=== PATIENT | female | born 1950 | race Caucasian/White ===

== ENCOUNTER 2017-02-03 15:30 | Observation (INO) | payer OTHER ==
[2017-02-03] MEDS ORDERED: ZOFRAN INJ 4 MG VIAL IVP ONE (15:47)
[2017-02-03] MEDS ORDERED: NS 1000 ML 1,000 ML IV ONE (15:47)
--- NOTE | 2017-02-03 15:47 | DR.NAUSEAF ---
HPI - Time Seen Time seen: 15:45 - Primary Care Physician Primary Care Physician: TIM POPE - HPI Comment HPI Comment: PATIENT STARTED HAVING ABDOMINAL PAIN WITH NAUSEA TODAY. PAIN WORSE THIS AFTERNOON. - Complaints Chief Complaint Doctors Comments: ABDOMINAL PAIN, NAUSEA AND VOMITING TIMES SEVERAL HOURS. Chief Complaint:: PT. C/O N/V AND ABDOMINAL PAIN. PT. STATES "I HAVE SEVERAL CYST ON MY LIVER, I JUST WANT TO MAKE SURE NOTHING HAS HAPPENED SINCE MY STOMACH HURTS." - Reviewed Nurses Notes Reviewed: Yes - Source History Provided: Patient - Mode of Arrival Mode of Arrival: Ambulatory - Timing Onset of Chief Complaint: 02/03/17 - Context Onset: Spontaneous Recent: None : No History of: Abdominal Operation, Diabetes - Quality Quality: Bilious - Associated Signs and Symptoms Abdominal Pain Quality: Sharp Abdominal Pain Location: Epigastric, RUQ Symptoms: Abdominal Pain PMH - PMH Past Medical History: Yes Past Medical History: Anxiety, Depression, Diabetes, GERD, Hypertension, Hypothyroidism Past Medical History Comment: CYSTS ON LIVER Past Surgical History: Yes Surgical History: Appendectomy, , Cholecystectomy, Hysterectomy, Other - Family History History of Family Medical Conditions: Yes Family Medical History: Diabetes Mellitus, [place], Coronary Artery Disease, Hypertension - Social History Does patient currently use any type of tobacco product: No Have you used tobacco products in the last 12 months: No Type of Tobacco Use: None Does any household member use tobacco: No Alcohol Use: Rarely Do you use any recreational Drugs:: No Lives With: Family Lives Where: Home - infectious screening In the last 2 months have you had wt loss of >10#?: NO Have you had fever, night sweats or hemotysis?: No Have you traveled outside the country in the last 6 months?: No Isolation: Standard ROS - Review of Systems Constitutional: No Symptoms Reported, Weakness, Fatigue. negative: Chills, Fever Eyes: No Symptoms Reported, Eye Pain, Discharge ENTM: No Symptoms Reported. negative: Ear Pain, Nose Discharge, Nose Congestion , Throat Pain Respiratoy: No Symptoms Reported. negative: Productive Cough, Non-Productive Cough, Short of Breath, Wheezing, Hemoptysis Cardiovascular: No Symptoms Reported. negative: Chest Pain Gastrointestinal/Abdominal: Abdominal Pain, Nausea, Vomiting. negative: Diarrhea Genitourinary: No Symptoms Reported. negative: Dysuria, Frequency, Hematuria Neurological: Weakness. negative: Headache, Dizziness Musculoskeletal: Muscle Pain Integumentary: Dryness Hematologic/Lymphatic: Easy Bruising Endocrine: No Symptoms Reported All Other Systems: Reviewed and Negative PE - Vital Signs Vitals: Temperature 98.1 F Pulse Rate 100 Respiratory Rate 17 Blood Pressure [Right Arm] 135/63 Blood Pressure 186/83 O2 Sat by Pulse Oximetry 99 - General Limitations: No Limitations General Appearance: Alert - Head Head Exam: Normal Inspection - Eyes Eye exam: Normal Appearance - ENT ENT Exam: Normal External Ear Exam - Neck Neck Exam: Normal Inspection - Chest Chest Inspection: Symmetric Chest Wall Rise - Respiratory Respiratory Exam: Normal Lung Sounds Bilat Respiratory Exam: Bilateral Clear to Auscultation - Cardiovascular Cardiovascular Exam: Regular Rate, Normal Rhythm, Irregular Rhythm - Abdominal Exam Abdominal Exam: Normal Bowel Sounds, Soft, Distention, Tenderness - Rectal Rectal Exam: Deferred - External Exam: Female: Deferred : Speculum Exam (Female): Deferred : Bimanual Exam (female): Deferred - Extremities Extremities Exam: Normal Inspection - Back Back Exam: Normal Inspection - Neurologic Neurological Exam: Alert, Oriented X3, CN II-XII Intact. negative: Motor Sensory Deficit - Psychiatric Psychiatric Exam: Normal Affect, Normal Mood - Skin Skin Exam: Dry MDM - Differential Diagnosis Differential Diagnosis: Considerations may Include:: Bowel Obstruction, Diabetes /DKA, Gastroenteritis, Pancreatitis, Urinary Obstruction, Urinary Tract Infection, Urolithiasis, Other (HEPATIC CYST) Course - Treatment Treatment: SEE ORDES. - Consultation Consultation Comments: DISCUSS PATIENT WITH DR. GARCIA. HE WILL ADMIT PATIENT. - Education/Counseling Education/Counseling: Patient, Education Educated On: Treatment, Diagnosis ROR - Labs Reviewed Laboratory Results Reviewed?: Yes Result Diagrams: 02/04/17 05:10 02/04/17 05:10 Laboratory: WBC 16.1 X10^3/uL (3.6-10.0) H 02/03/17 16:00 RBC 4.85 X10^6/uL (3.5-5.4) 02/03/17 16:00 Hgb 14.1 g/dL (12.0-16.0) 02/03/17 16:00 Hct 42.3 % (36.0-47.0) 02/03/17 16:00 MCV 87.2 fL (80.0-100.0) 02/03/17 16:00 MCH 29.1 pg (27.0-34.0) 02/03/17 16:00 MCHC 33.3 g/dL (33.0-35.0) 02/03/17 16:00 RDW 13.3 % (11.6-16.5) 02/03/17 16:00 Plt Count 254 X10^3/uL (150.0-450.0) 02/03/17 16:00 Plt Count Comment Adequate (ADEQUATE) 02/03/17 16:00 MPV 9.8 fL (7.4-11.0) 02/03/17 16:00 Neut % 91.1 % (42.0-75.0) H 02/03/17 16:00 Lymph % 4.0 % (21.0-51.0) L 02/03/17 16:00 [place] % 3.9 % (0.0-13.0) 02/03/17 16:00 Eos % 0.7 % (0.9-2.9) L 02/03/17 16:00 Baso % 0.3 % (0.2-1.0) 02/03/17 16:00 Neut # 14.7 x10^3/uL (2.2-4.8) H 02/03/17 16:00 Lymph # 0.6 X10^3/uL (1.3-2.9) L 02/03/17 16:00 [place] # 0.6 x10^3/uL (0.3-0.8) 02/03/17 16:00 Eos # 0.1 x10^3/uL (0.0-0.2) 02/03/17 16:00 Baso # 0.0 X10^3/uL (0.0-0.1) 02/03/17 16:00 Absolute Nucleated RBC 0.0 /100WBC 02/03/17 16:00 Total Counted 100 02/03/17 16:00 Neutrophils % (Manual) 90 % (39-76) H 02/03/17 16:00 Band Neutrophils % 5 % (0-10) 02/03/17 16:00 Lymphocytes % (Manual) 2 % (13-43) L 02/03/17 16:00 Monocytes % (Manual) 1 % (4-9) L 02/03/17 16:00 Plt Morphology Comment Normal (NORMAL) 02/03/17 16:00 RBC Morphology Normal (NORMAL) 02/03/17 16:00 Sodium 140 mmol/L (136-145) 02/03/17 16:00 Corrected Sodium 142 mmol/L (136-145) 02/03/17 16:00 Potassium 3.9 mmol/L (3.5-5.1) 02/03/17 16:00 Chloride 102 mmol/L (98-107) 02/03/17 16:00 Carbon Dioxide 25.6 mmol/L (21-32) 02/03/17 16:00 BUN 17 mg/dL (7-18) 02/03/17 16:00 Creatinine 1.03 mg/dL (0.55-1.02) H 02/03/17 16:00 Est GFR (MDRD) Af Amer > 60 (>60) 02/03/17 16:00 Est GFR (MDRD) Non-Af 57 (>60) L 02/03/17 16:00 Glucose 189 mg/dL (65-99) H 02/03/17 16:00 Calcium 9.0 mg/dL (8.5-10.1) 02/03/17 16:00 Corrected Calcium TNP 02/03/17 16:00 Total Bilirubin 0.90 mg/dL (0.2-1.0) 02/03/17 16:00 AST 27 Units/L (15-37) 02/03/17 16:00 ALT 47 Units/L (12-78) 02/03/17 16:00 Alkaline Phosphatase 107 Units/L (46-116) 02/03/17 16:00 Creatine Kinase 68 Units/L (26-192) 02/03/17 16:00 CK-MB (CK-2) < 1.0 ng/mL (0-4.0) 02/03/17 16:00 CK/CKMB % Calc 1.5 % (<4) 02/03/17 16:00 Troponin I < 0.02 ng/mL (0-1.5) 02/03/17 16:00 Total Protein 7.8 g/dL (6.4-8.2) 02/03/17 16:00 Albumin 4.0 g/dL (3.4-5.0) 02/03/17 16:00 Globulin 3.8 g/dL (2.5-4.5) 02/03/17 16:00 Albumin/Globulin Ratio 1.1 Ratio (1.1-2.1) 02/03/17 16:00 Specimen Type Clean catch urine 02/03/17 17:48 Urine Color Dark yellow (YELLOW) 02/03/17 17:48 Urine Appearance Clear (CLEAR) 02/03/17 17:48 Urine pH 6.0 (5.0 - 8.0) 02/03/17 17:48 Ur Specific [place] 1.025 (1.000-1.030) 02/03/17 17:48 Urine Protein 3+ (NEGATIVE) 02/03/17 17:48 Urine Glucose (UA) Negative (NEGATIVE) 02/03/17 17:48 Urine Ketones Negative (NEGATIVE) 02/03/17 17:48 Urine Occult Blood 1+ (NEGATIVE) 02/03/17 17:48 Urine Nitrite Negative (NEGATIVE) 02/03/17 17:48 Urine Bilirubin Negative (NEGATIVE) 02/03/17 17:48 Urine Urobilinogen 1+ (NORMAL) 02/03/17 17:48 Ur Leukocyte Esterase 1+ (NEGATIVE) 02/03/17 17:48 Urine RBC 0-2 /HPF (NEGATIVE) 02/03/17 17:48 Urine WBC 2-3 /HPF (NEGATIVE) 02/03/17 17:48 Ur Squamous Epith Cells Few /HPF (NEGATIVE) 02/03/17 17:48 Amorphous Sediment Trace /HPF (NEGATIVE) 02/03/17 17:48 Urine Bacteria Trace /HPF (NEGATIVE) 02/03/17 17:48 Urine Mucus Moderate /HPF (NEGATIVE) 02/03/17 17:48 Ur Culture Indicated? No/not indicated 02/03/17 17:48 Acetone, Semi-Quant Negative (NEGATIVE) 02/03/17 16:07 - XRAY XRAY Interpreted by: Radiologist XRAY Findings: REPORT DISCUSS WITH PATIENT. - Diagnosis Discharge Problem: Nausea and vomiting in adult patient, Abdominal pain, Hyperglycemia, Dehydration, Gastroenteritis - Discharge Plan Disposition: ADMITTED INPATIENT Condition: Stable - Follow ups/Referrals - Instructions
[2017-02-03] MEDS ORDERED: NS 1000 ML 1,000 ML ONE (15:52)
[2017-02-03] MEDS ORDERED: ZOFRAN INJ 4 MG VIAL ONE (15:52)
[2017-02-03 16:14] LABS: BASOPHILS % (AUTO) 0.3 % (0.2-1.0); EOSINOPHILS # (AUTO) 0.1 x10^3/uL (0.0-0.2); EOSINOPHILS % (AUTO) 0.7 % (0.9-2.9); HEMATOCRIT 42.3 % (36.0-47.0); HEMOGLOBIN 14.1 g/dL (12.0-16.0); LYMPHOCYTES # (AUTO) 0.6 X10^3/uL (1.3-2.9); MEAN CORPUSCULAR HEMOGLOBIN 29.1 pg (27.0-34.0); MEAN CORPUSCULAR HGB CONC 33.3 g/dL (33.0-35.0); MEAN CORPUSCULAR VOLUME 87.2 fL (80.0-100.0); MEAN PLATELET VOLUME 9.8 fL (7.4-11.0); MONOCYTES # (AUTO) 0.6 x10^3/uL (0.3-0.8); MONOCYTES % (AUTO) 3.9 % (0.0-13.0); NEUTROPHILS # (AUTO) 14.7 x10^3/uL (2.2-4.8); NEUTROPHILS % (AUTO) 91.1 % (42.0-75.0); PLATELET COUNT 254 X10^3/uL (150.0-450.0); RED BLOOD COUNT 4.85 X10^6/uL (3.5-5.4); RED CELL DISTRIBUTION WIDTH 13.3 % (11.6-16.5); WHITE BLOOD COUNT 16.1 X10^3/uL (3.6-10.0)
[2017-02-03 16:28] LABS: BAND NEUTROPHILS % 5 % (0-10); PLATELET MORPHOLOGY COMMENT NORMAL (NORMAL)
[2017-02-03 16:30] LABS: BLOOD UREA NITROGEN 17 mg/dL (7-18); CARBON DIOXIDE 25.6 mmol/L (21-32); CHLORIDE 102 mmol/L (98-107); COR NA(FOR HYPERGLY) 142 mmol/L (136-145); CREATININE 1.03 mg/dL (0.55-1.02); GLUCOSE 189 mg/dL (65-99); SODIUM 140 mmol/L (136-145); TROPONIN I < 0.02 ng/mL (0-1.5); eGFR BLACK RACES > 60 (>60); eGFR NON BLACK RACES 57 (>60)
[2017-02-03 16:34] LABS: ALANINE AMINOTRANSFERASE 47 Units/L (12-78); ALKALINE PHOSPHATASE 107 Units/L (46-116); ASPARTATE AMINO TRANSFERASE 27 Units/L (15-37); CKMB % 1.5 % (<4); CREATINE KINASE 68 Units/L (26-192); CREATINE KINASE MB < 1.0 ng/mL (0-4.0); TOTAL PROTEIN 7.8 g/dL (6.4-8.2)
[2017-02-03] MEDS ORDERED: DEMEROL INJ IVP ONE (16:58)
[2017-02-03] MEDS ORDERED: DEMEROL INJ ONE (17:06)
[2017-02-03 17:58] LABS: BILIRUBIN,URINE NEGATIVE (NEGATIVE); BLOOD/HEMOGLOBIN,URINE 1+ (NEGATIVE); GLUCOSE, URINE NEGATIVE (NEGATIVE); KETONES,URINE NEGATIVE (NEGATIVE); LEUKOCYTE ESTERASE ,URINE 1+ (NEGATIVE); NITRITES,URINE NEGATIVE (NEGATIVE); PROTEIN,URINE 3+ (NEGATIVE); UROBILINOGEN,URINE 1+ (NORMAL)
[2017-02-03 18:06] LABS: AMORPHOUS SEDIMENT,UR TRACE /HPF (NEGATIVE); APPEARANCE,URINE CLEAR (CLEAR); BACTERIA,URINE TRACE /HPF (NEGATIVE); COLOR,URINE DARK YELLOW (YELLOW); MUCUS,URINE MODERATE /HPF (NEGATIVE); RBC,URINE 0-2 /HPF (NEGATIVE); SQUAMOUS EPITHELIAL CELL,UR FEW /HPF (NEGATIVE)
[2017-02-03] MEDS ORDERED: NS 100 ML IV 100 ML IV ONE (18:47)
--- NOTE | 2017-02-03 19:23 | CT ---
CT abdomen and pelvis with contrast Indication: Abdominal pain. No bowel movement in several days. History of multiple liver cysts. Comparison: August 06, 2016 CT. March 23, 2011 CT also reviewed. Technique: Helical images through the abdomen and pelvis after IV contrast. Coronal and sagittal ref ormats provided. Findings: Review of bone windows shows no destructive osseous lesion. Facet arthropathy noted. Limited images through lower chest shows no acute abnormality. Abdomen: The adrenal glands are normal. The kidneys are normal without hydroureteronephrosis. Tiny r ight lower pole renal cyst suggested. Vascular plaque noted. The spleen, pancreas, stomach and small bowel appear normal. Contrast enters the distal small bowel without obstruction. The appendix is no rmal. No acute colonic abnormality seen. No large amount of stool seen in the colon suggests constip ation. The entire sigmoid colon is collapsed, with minimal wall thickening seen at the descending co klaudia/sigmoid junction. This is long segment and not focal without large mass identified. See coronal image 31. The liver is massively enlarged with numerous hepatic cysts. These are relatively similar in distrib ution when compared to the prior. The largest caudal cyst measures 12.1 x 9.6 cm on axial image 39, relatively unchanged from the prior October 01, 2015. Cyst abutting arising from the caudate lobe a ppears to have enlarged from the prior, measuring maximally First 10.5 x 9.6 cm on axial image 21, p reviously 8.7 x 8.0 cm on axial image 23. No very ectatic fluid seen. Pelvis: The urinary bladder and rectum are normal. Uterus is absent. No adnexal region lesion seen. Impression: 1. Numerous large cysts throughout the liver, roughly similar to most recent prior. The caudate lobe cystic lesion has enlarged. These and appear benign. 2. Mild wall thickening of the distal descending colon, probably due to collapse. Very mild colitis is not completely excluded. No evidence of constipation. 3. Vascular plaque and other findings as above without new acute abnormality otherwise. Reported By:
[2017-02-03] MEDS: NS 1000 ML 1,000 ML IV SCH (22:09)
[2017-02-03] MEDS ORDERED: TYLENOL 325 MG TAB PO PRN (22:13)
[2017-02-03] MEDS ORDERED: PHENERGAN INJ 25 MG IVP PRN (22:13)
[2017-02-04] MEDS ORDERED: MORPHINE SULFATE INJ 2 MG ONE (00:26)
[2017-02-04] MEDS: MORPHINE SULFATE INJ 2 MG IVP PRN ×2 (00:28→11:14)
[2017-02-04 03:23] VITALS: BMI 31.9
[2017-02-04] MEDS ORDERED: PHENERGAN INJ 25 MG ONE (03:42)
[2017-02-04] MEDS ORDERED: NS 25 ML IV 25 ML IV ONE (03:43)
[2017-02-04 05:38] LABS: ALANINE AMINOTRANSFERASE 37 Units/L (12-78); ALBUMIN 3.1 g/dL (3.4-5.0); ALKALINE PHOSPHATASE 86 Units/L (46-116); AMYLASE 42 Units/L (25-115); ASPARTATE AMINO TRANSFERASE 24 Units/L (15-37); BLOOD UREA NITROGEN 15 mg/dL (7-18); CALCIUM 7.9 mg/dL (8.5-10.1); CHLORIDE 106 mmol/L (98-107); COR CA(FOR HYPOALB) 8.6 mg/dL (8.5-10.1); COR NA(FOR HYPERGLY) 141 mmol/L (136-145); CREATININE 0.98 mg/dL (0.55-1.02); GLUCOSE 160 mg/dL (65-99); LIPASE 158 Units/L (73-393); SODIUM 140 mmol/L (136-145); TOTAL PROTEIN 6.2 g/dL (6.4-8.2); eGFR BLACK RACES > 60 (>60); eGFR NON BLACK RACES > 60 (>60)
[2017-02-04 05:47] LABS: BASOPHILS % (AUTO) 0.1 % (0.2-1.0); EOSINOPHILS # (AUTO) 0.1 x10^3/uL (0.0-0.2); EOSINOPHILS % (AUTO) 0.6 % (0.9-2.9); HEMOGLOBIN 11.7 g/dL (12.0-16.0); LYMPHOCYTES # (AUTO) 0.9 X10^3/uL (1.3-2.9); LYMPHOCYTES % (AUTO) 10.5 % (21.0-51.0); MEAN CORPUSCULAR HEMOGLOBIN 29.6 pg (27.0-34.0); MEAN CORPUSCULAR HGB CONC 33.5 g/dL (33.0-35.0); MEAN CORPUSCULAR VOLUME 88.3 fL (80.0-100.0); MEAN PLATELET VOLUME 9.8 fL (7.4-11.0); MONOCYTES # (AUTO) 0.7 x10^3/uL (0.3-0.8); MONOCYTES % (AUTO) 7.9 % (0.0-13.0); NEUTROPHILS # (AUTO) 7.2 x10^3/uL (2.2-4.8); NEUTROPHILS % (AUTO) 80.9 % (42.0-75.0); PLATELET COUNT 176 X10^3/uL (150.0-450.0); RED BLOOD COUNT 3.97 X10^6/uL (3.5-5.4); RED CELL DISTRIBUTION WIDTH 13.3 % (11.6-16.5); WHITE BLOOD COUNT 8.9 X10^3/uL (3.6-10.0)
[2017-02-04] MEDS ORDERED: NS 1000 ML 1,000 ML ONE (06:03)
[2017-02-04] MEDS: NS 1000 ML 1,000 ML IV SCH ×3 (06:06→23:56)
[2017-02-04] MEDS ORDERED: ALLEGRA PO PRN (09:52)
[2017-02-04] MEDS ORDERED: PATIENT'S HOME MEDICATION RESPIRATORY (Levocetirizine Dihydrochloride [Levocetirizine Dihy PO SCH (10:00)
[2017-02-04] MEDS ORDERED: CHOLECALCIFEROL PO SCH (10:00)
[2017-02-04] MEDS ORDERED: PATIENT'S HOME MEDICATION PO SCH (10:00)
[2017-02-04] MEDS: ASPIRIN EC 81 MG PO SCH (11:12)
[2017-02-04] MEDS: ZESTRIL TAB 40 MG PO SCH (11:13)
[2017-02-04] MEDS: CIPRO IV 400 MG PREMIX* 400 MG/200 ML IV.SOLN. IV SCH ×2 (11:13→20:39)
[2017-02-04] MEDS: FLAGYL IV PREMIX 500 MG BAG 500 MG/100 ML BAG IV SCH ×2 (11:13→17:40)
[2017-02-04] MEDS: SYNTHROID 50 mcg TAB PO SCH (11:13)
[2017-02-04] MEDS: PROTONIX INJ 40 MG VIAL IVP SCH (11:13)
[2017-02-04] MEDS: VITAMIN C PO SCH (11:13)
[2017-02-04] MEDS: PROCARDIA XL PO SCH (11:14)
[2017-02-04] MEDS: PEPCID 20 MG IV PREMIX* 20 MG/50 ML BAG IV PRN (11:14)
[2017-02-04] MEDS: ZOFRAN INJ 4 MG VIAL IVP PRN (11:14)
[2017-02-04] MEDS: NORCO 5/325 MG TAB PO PRN ×3 (12:00→22:32)
[2017-02-04] MEDS: VITAMIN D3 PO SCH (12:26)
--- NOTE | 2017-02-04 13:57 | DR.H&P ---
H&P - History & Physical for Day of: H&P Date: 02/03/17 - Chief Complaint Chief Complaint: abdominal pain, ruq pain, n/v, fever - Allergies Allergies/Adverse Reactions: Allergies Allergy/AdvReac Type Severity Reaction Status Date / Time No Known Drug Allergy Allergy Verified 02/03/17 15:34 - History of Present Illness History of Present Illness: 66 wf admitted from ER after presenting with co abdominal pain and pressure, nausea and vomiting. Pt has PMH of DM, HTN, OA, Neuropathy and liver cysts. Pt has multile large liver cysts, follow by dr Arauz. Pt states " I think one of my livers cysted ruptured" due to increase abd pain and pressure. pt has ct scan in ER revealing colitis and liver cysts. plan to admit for iv atbx therapy, hydration and pain and nausea control - Past Medical History Past Medical History: Anxiety, Depression, Diabetes, GERD, Hypertension, Hypothyroidism - Past Surgical History Surgical History: Appendectomy, , Cholecystectomy, Hysterectomy, Other - Family History Family Medical History: Diabetes Mellitus, [place], Coronary Artery Disease, Hypertension - Social History Does patient currently use any type of tobacco product: No Have you used tobacco products in the last 12 months: No Type of Tobacco Use: None Does any household member use tobacco: No Alcohol Use: Rarely Drug Use: None - Medications Home Medications: Ascorbic Acid [VITAMIN C tab 500 mg *] 500 mg PO DAILY 02/03/17 [History Confirmed 02/03/17] Cholecalciferol [D3 2000] 2,000 unit PO DAILY 02/03/17 [History Confirmed ] Cyanocobalamin [B12] 1,000 mcg PO WEEKLY 02/03/17 [History Confirmed 02/03/17] Fexofenadine HCl [LAMIN 180 MG TAB *] 180 mg PO DAILY PRN 02/03/17 [History Confirmed 02/03/17] Levocetirizine Dihydrochloride [Levocetirizine Dihydrochl] 5 mg PO DAILY [History Confirmed 02/03/17] Misc Home Med [Patient's Home Medication (Non-PO)] 1 ea PO DAILY 02/03/17 [ History Confirmed 02/03/17] Montelukast Sodium [SINGULAIR TAB 10 MG *] 10 mg PO HS 02/03/17 [History Confirmed 02/03/17] - Review of Systems Constitutional: Fever, Sweats, Weakness Eyes: No Symptoms Reported ENT: No Symptoms Reported Respiratory: No Symptoms Reported Cardiovascular: No Symptoms Reported Gastrointestinal: Nausea, Abdominal Pain Musculoskeletal: No Symptoms Reported Skin: No Symptoms Reported Neurological: No Symptoms Reported - Physical Exam Vital Signs: Temperature 98.1 F Pulse Rate [Right Brachial] 62 Respiratory Rate 20 Blood Pressure [Left Arm] 161/74 Blood Pressure [Right Arm] 170/72 O2 Sat by Pulse Oximetry 94 Oriented: Normal Eyes: Normal Ear: Normal Nose: Normal Throat: Normal Respiratory: Clear Throughout Cardiovascular: Normal : Normal Auscultation: Bowel Sounds: Normal Palpation: Liver Enlarged Tenderness: RUQ, RLQ, LUQ Skin: Normal Musculoskeletal: Normal Psychiatric: Anxiety Speech Pattern: Clear, Appropriate - Assessment/Plan (1) Abdominal pain Qualifiers: Abdominal location: A Status: Acute Plan: admit, IV hydration, pain and nausea control. repeat am labs, occult stool and culture. blood sugar control. resume home meds. advance diet as tolerate (2) Nausea vomiting and diarrhea Status: Acute (3) GERD (gastroesophageal reflux disease) Qualifiers: Esophagitis presence: E Status: Acute (4) Liver cyst Status: Acute (5) Gastroenteritis Status: Acute (6) Diabetes Qualifiers: Diabetes mellitus type: type 2 Diabetes mellitus complication status: D Diabetes mellitus complication detail: with nephropathy Diabetic retinopathy severity: D Proliferative retinopathy type: P Diabetes mellitus macular edema: D Diabetes mellitus skilled nursing insulin use: D Laterality: L Chronic kidney disease stage: C Status: Chronic (7) HTN (hypertension) Qualifiers: Hypertension type: essential hypertension Qualified Code(s): I10 - Essential (primary) hypertension Status: Chronic
--- NOTE | 2017-02-04 14:02 | PCM.PROG ---
Progress Note - Progress Note for Day of Date: 02/04/17 - Subjective Subjective: co low grade fever during the night, continued abdominal "swelling" and abdominal pressure. - Past Medical Family Social History Allergies: Allergies No Known Drug Allergy Allergy (Verified 02/03/17 15:34) - Vital Signs and I&O's Vital Signs: Temperature 98.1 F Pulse Rate [Right Brachial] 62 Respiratory Rate 20 Blood Pressure [Left Arm] 161/74 Blood Pressure [Right Arm] 170/72 O2 Sat by Pulse Oximetry 94 Intake and Output: Intake & Output 02/02/17 02/03/17 02/04/17 02/05/17 11:59 11:59 11:59 11:59 Intake Total 1468 Balance 1468 - Physical Exam Oriented: Normal Eyes: Normal Ear: Normal Nose: Normal Throat: Normal Cardiovascular: Normal : Normal Auscultation: Bowel Sounds: Normal Tenderness: RUQ, RLQ, LUQ Skin: Normal Musculoskeletal: Normal Psychiatric: Anxiety Speech Pattern: Clear, Appropriate - Laboratory and Diagnostics Result Diagrams: 02/04/17 05:10 02/04/17 05:10 Labs: Laboratory WBC 8.9 X10^3/uL (3.6-10.0) 02/04/17 05:10 RBC 3.97 X10^6/uL (3.5-5.4) 02/04/17 05:10 Hgb 11.7 g/dL (12.0-16.0) L 02/04/17 05:10 Hct 35.0 % (36.0-47.0) L 02/04/17 05:10 MCV 88.3 fL (80.0-100.0) 02/04/17 05:10 MCH 29.6 pg (27.0-34.0) 02/04/17 05:10 MCHC 33.5 g/dL (33.0-35.0) 02/04/17 05:10 RDW 13.3 % (11.6-16.5) 02/04/17 05:10 Plt Count 176 X10^3/uL (150.0-450.0) 02/04/17 05:10 Plt Count Comment Adequate (ADEQUATE) 02/03/17 16:00 MPV 9.8 fL (7.4-11.0) 02/04/17 05:10 Neut % 80.9 % (42.0-75.0) H 02/04/17 05:10 Lymph % 10.5 % (21.0-51.0) L 02/04/17 05:10 [place] % 7.9 % (0.0-13.0) 02/04/17 05:10 Eos % 0.6 % (0.9-2.9) L 02/04/17 05:10 Baso % 0.1 % (0.2-1.0) L 02/04/17 05:10 Neut # 7.2 x10^3/uL (2.2-4.8) H 02/04/17 05:10 Lymph # 0.9 X10^3/uL (1.3-2.9) L 02/04/17 05:10 [place] # 0.7 x10^3/uL (0.3-0.8) 02/04/17 05:10 Eos # 0.1 x10^3/uL (0.0-0.2) 02/04/17 05:10 Baso # 0.0 X10^3/uL (0.0-0.1) 02/04/17 05:10 Absolute Nucleated RBC 0.0 /100WBC 02/04/17 05:10 Total Counted 100 02/03/17 16:00 Neutrophils % (Manual) 90 % (39-76) H 02/03/17 16:00 Band Neutrophils % 5 % (0-10) 02/03/17 16:00 Lymphocytes % (Manual) 2 % (13-43) L 02/03/17 16:00 Monocytes % (Manual) 1 % (4-9) L 02/03/17 16:00 Plt Morphology Comment Normal (NORMAL) 02/03/17 16:00 RBC Morphology Normal (NORMAL) 02/03/17 16:00 Sodium 140 mmol/L (136-145) 02/04/17 05:10 Corrected Sodium 141 mmol/L (136-145) 02/04/17 05:10 Potassium 3.7 mmol/L (3.5-5.1) 02/04/17 05:10 Chloride 106 mmol/L (98-107) 02/04/17 05:10 Carbon Dioxide 25.0 mmol/L (21-32) 02/04/17 05:10 BUN 15 mg/dL (7-18) 02/04/17 05:10 Creatinine 0.98 mg/dL (0.55-1.02) 02/04/17 05:10 Est GFR (MDRD) Af Amer > 60 (>60) 02/04/17 05:10 Est GFR (MDRD) Non-Af > 60 (>60) 02/04/17 05:10 Glucose 160 mg/dL (65-99) H 02/04/17 05:10 Calcium 7.9 mg/dL (8.5-10.1) L 02/04/17 05:10 Corrected Calcium 8.6 mg/dL (8.5-10.1) 02/04/17 05:10 Total Bilirubin 0.90 mg/dL (0.2-1.0) 02/04/17 05:10 AST 24 Units/L (15-37) 02/04/17 05:10 ALT 37 Units/L (12-78) 02/04/17 05:10 Alkaline Phosphatase 86 Units/L (46-116) 02/04/17 05:10 Creatine Kinase 68 Units/L (26-192) 02/03/17 16:00 CK-MB (CK-2) < 1.0 ng/mL (0-4.0) 02/03/17 16:00 CK/CKMB % Calc 1.5 % (<4) 02/03/17 16:00 Troponin I < 0.02 ng/mL (0-1.5) 02/03/17 16:00 Total Protein 6.2 g/dL (6.4-8.2) L 02/04/17 05:10 Albumin 3.1 g/dL (3.4-5.0) L 02/04/17 05:10 Globulin 3.1 g/dL (2.5-4.5) 02/04/17 05:10 Albumin/Globulin Ratio 1.0 Ratio (1.1-2.1) L 02/04/17 05:10 Amylase 42 Units/L (25-115) 02/04/17 05:10 Lipase 158 Units/L (73-393) 02/04/17 05:10 Specimen Type Clean catch urine 02/03/17 17:48 Urine Color Dark yellow (YELLOW) 02/03/17 17:48 Urine Appearance Clear (CLEAR) 02/03/17 17:48 Urine pH 6.0 (5.0 - 8.0) 02/03/17 17:48 Ur Specific [place] 1.025 (1.000-1.030) 02/03/17 17:48 Urine Protein 3+ (NEGATIVE) 02/03/17 17:48 Urine Glucose (UA) Negative (NEGATIVE) 02/03/17 17:48 Urine Ketones Negative (NEGATIVE) 02/03/17 17:48 Urine Occult Blood 1+ (NEGATIVE) 02/03/17 17:48 Urine Nitrite Negative (NEGATIVE) 02/03/17 17:48 Urine Bilirubin Negative (NEGATIVE) 02/03/17 17:48 Urine Urobilinogen 1+ (NORMAL) 02/03/17 17:48 Ur Leukocyte Esterase 1+ (NEGATIVE) 02/03/17 17:48 Urine RBC 0-2 /HPF (NEGATIVE) 02/03/17 17:48 Urine WBC 2-3 /HPF (NEGATIVE) 02/03/17 17:48 Ur Squamous Epith Cells Few /HPF (NEGATIVE) 02/03/17 17:48 Amorphous Sediment Trace /HPF (NEGATIVE) 02/03/17 17:48 Urine Bacteria Trace /HPF (NEGATIVE) 02/03/17 17:48 Urine Mucus Moderate /HPF (NEGATIVE) 02/03/17 17:48 Ur Culture Indicated? No/not indicated 02/03/17 17:48 Acetone, Semi-Quant Negative (NEGATIVE) 02/03/17 16:07 - Plan (1) Abdominal pain Status: Acute Qualifiers: Abdominal location: A Plan: continue iv atbc therapy, IV hydration, pain and nausea control. repeat am labs, occult stool and culture. blood sugar control. resume home meds. advance diet as tolerate (2) Nausea vomiting and diarrhea Status: Acute (3) GERD (gastroesophageal reflux disease) Status: Acute Qualifiers: Esophagitis presence: E Plan: protonix 40 daily (4) Liver cyst Status: Acute Plan: see ct report, consult Irfan for evaluation. pt has seen Irfan on OP basis for gerd and liver cysts (5) Gastroenteritis Status: Acute (6) Diabetes Status: Chronic Qualifiers: Diabetes mellitus type: type 2 Diabetes mellitus complication status: D Diabetes mellitus complication detail: with nephropathy Diabetic retinopathy severity: D Proliferative retinopathy type: P Diabetes mellitus macular edema: D Diabetes mellitus lead cashier insulin use: D Laterality: L Chronic kidney disease stage: C (7) HTN (hypertension) Status: Chronic Qualifiers: Hypertension type: essential hypertension Qualified Code(s): I10 - Essential (primary) hypertension
[2017-02-04] MEDS: SINGULAIR TAB 10 MG PO SCH (20:39)
[2017-02-04] MEDS: SNACK - Diabetic Appropriate PO SCH (21:50)
[2017-02-05] MEDS: FLAGYL IV PREMIX 500 MG BAG 500 MG/100 ML BAG IV SCH ×3 (05:37→17:08)
[2017-02-05 06:19] LABS: BASOPHILS % (AUTO) 0.3 % (0.2-1.0); EOSINOPHILS # (AUTO) 0.1 x10^3/uL (0.0-0.2); EOSINOPHILS % (AUTO) 1.2 % (0.9-2.9); HEMATOCRIT 37.5 % (36.0-47.0); HEMOGLOBIN 12.5 g/dL (12.0-16.0); LYMPHOCYTES # (AUTO) 1.2 X10^3/uL (1.3-2.9); LYMPHOCYTES % (AUTO) 16.9 % (21.0-51.0); MEAN CORPUSCULAR HEMOGLOBIN 29.4 pg (27.0-34.0); MEAN CORPUSCULAR HGB CONC 33.4 g/dL (33.0-35.0); MEAN CORPUSCULAR VOLUME 87.9 fL (80.0-100.0); MONOCYTES # (AUTO) 0.7 x10^3/uL (0.3-0.8); MONOCYTES % (AUTO) 9.7 % (0.0-13.0); NEUTROPHILS # (AUTO) 5.2 x10^3/uL (2.2-4.8); NEUTROPHILS % (AUTO) 71.9 % (42.0-75.0); PLATELET COUNT 176 X10^3/uL (150.0-450.0); RED BLOOD COUNT 4.27 X10^6/uL (3.5-5.4); RED CELL DISTRIBUTION WIDTH 13.1 % (11.6-16.5); WHITE BLOOD COUNT 7.2 X10^3/uL (3.6-10.0)
[2017-02-05 06:41] LABS: ALANINE AMINOTRANSFERASE 47 Units/L (12-78); ALKALINE PHOSPHATASE 85 Units/L (46-116); ASPARTATE AMINO TRANSFERASE 32 Units/L (15-37); BLOOD UREA NITROGEN 11 mg/dL (7-18); CALCIUM 7.5 mg/dL (8.5-10.1); CARBON DIOXIDE 23.3 mmol/L (21-32); CHLORIDE 110 mmol/L (98-107); COR CA(FOR HYPOALB) 8.3 mg/dL (8.5-10.1); COR NA(FOR HYPERGLY) 145 mmol/L (136-145); CREATININE 0.85 mg/dL (0.55-1.02); GLUCOSE 121 mg/dL (65-99); SODIUM 144 mmol/L (136-145); TOTAL PROTEIN 6.1 g/dL (6.4-8.2); eGFR BLACK RACES > 60 (>60); eGFR NON BLACK RACES > 60 (>60)
[2017-02-05] MEDS: MORPHINE SULFATE INJ 2 MG IVP PRN (07:39)
[2017-02-05] MEDS: NS 1000 ML 1,000 ML IV SCH ×3 (08:00→18:54)
[2017-02-05] MEDS: NORCO 5/325 MG TAB PO PRN ×2 (09:19→13:10)
[2017-02-05] MEDS: VITAMIN C PO SCH (09:20)
[2017-02-05] MEDS: SYNTHROID 50 mcg TAB PO SCH (09:20)
[2017-02-05] MEDS: VITAMIN D3 PO SCH (09:20)
[2017-02-05] MEDS: PROTONIX INJ 40 MG VIAL IVP SCH (09:20)
[2017-02-05] MEDS: ZESTRIL TAB 40 MG PO SCH (09:20)
[2017-02-05] MEDS: ASPIRIN EC 81 MG PO SCH (09:20)
[2017-02-05] MEDS: PROCARDIA XL PO SCH (09:21)
[2017-02-05] MEDS: CIPRO IV 400 MG PREMIX* 400 MG/200 ML IV.SOLN. IV SCH ×2 (09:21→21:00)
[2017-02-05] MEDS: ZOFRAN INJ 4 MG VIAL IVP PRN ×2 (11:52→21:01)
--- NOTE | 2017-02-05 13:48 | PCM.PROG ---
Progress Note - Progress Note for Day of Date: 02/05/17 - Subjective Subjective: continued abdominal "swelling" and abdominal pressure and loose stool. DR WHITE consulting - Past Medical Family Social History Past Med/Fam/Surg Hx: No changes since H&P Allergies: Allergies No Known Drug Allergy Allergy (Verified 02/03/17 15:34) - Review of Systems ROS: No change since H&P - Vital Signs and I&O's Vital Signs: Temperature 98.6 F Pulse Rate [Right Brachial] 77 Respiratory Rate 18 Blood Pressure [Left Arm] 119/58 Blood Pressure [Right Arm] 162/71 O2 Sat by Pulse Oximetry 95 Intake and Output: Intake & Output 02/03/17 02/04/17 02/05/17 02/06/17 11:59 11:59 11:59 11:59 Intake Total 1468 3676 Balance 1468 3676 - Physical Exam Oriented: Normal Eyes: Normal Ear: Normal Nose: Normal Throat: Normal Cardiovascular: Normal : Normal Auscultation: Bowel Sounds: Normal Tenderness: RUQ, RLQ, LUQ Skin: Normal Musculoskeletal: Normal Psychiatric: Anxiety Speech Pattern: Clear, Appropriate - Laboratory and Diagnostics Result Diagrams: 02/05/17 05:30 02/05/17 05:30 Labs: 02/03/17 22:30 Blood Blood Culture - Preliminary 02/03/17 22:25 Blood Blood Culture - Preliminary 02/05/17 05:21 Stool - Final Laboratory WBC 7.2 X10^3/uL (3.6-10.0) 02/05/17 05:30 RBC 4.27 X10^6/uL (3.5-5.4) 02/05/17 05:30 Hgb 12.5 g/dL (12.0-16.0) 02/05/17 05:30 Hct 37.5 % (36.0-47.0) 02/05/17 05:30 MCV 87.9 fL (80.0-100.0) 02/05/17 05:30 MCH 29.4 pg (27.0-34.0) 02/05/17 05:30 MCHC 33.4 g/dL (33.0-35.0) 02/05/17 05:30 RDW 13.1 % (11.6-16.5) 02/05/17 05:30 Plt Count 176 X10^3/uL (150.0-450.0) 02/05/17 05:30 Plt Count Comment Adequate (ADEQUATE) 02/03/17 16:00 MPV 10.0 fL (7.4-11.0) 02/05/17 05:30 Neut % 71.9 % (42.0-75.0) 02/05/17 05:30 Lymph % 16.9 % (21.0-51.0) L 02/05/17 05:30 Branch % 9.7 % (0.0-13.0) 02/05/17 05:30 Eos % 1.2 % (0.9-2.9) 02/05/17 05:30 Baso % 0.3 % (0.2-1.0) 02/05/17 05:30 Neut # 5.2 x10^3/uL (2.2-4.8) H 02/05/17 05:30 Lymph # 1.2 X10^3/uL (1.3-2.9) L 02/05/17 05:30 Branch # 0.7 x10^3/uL (0.3-0.8) 02/05/17 05:30 Eos # 0.1 x10^3/uL (0.0-0.2) 02/05/17 05:30 Baso # 0.0 X10^3/uL (0.0-0.1) 02/05/17 05:30 Absolute Nucleated RBC 0.0 /100WBC 02/05/17 05:30 Total Counted 100 02/03/17 16:00 Neutrophils % (Manual) 90 % (39-76) H 02/03/17 16:00 Band Neutrophils % 5 % (0-10) 02/03/17 16:00 Lymphocytes % (Manual) 2 % (13-43) L 02/03/17 16:00 Monocytes % (Manual) 1 % (4-9) L 02/03/17 16:00 Plt Morphology Comment Normal (NORMAL) 02/03/17 16:00 RBC Morphology Normal (NORMAL) 02/03/17 16:00 Sodium 144 mmol/L (136-145) 02/05/17 05:30 Corrected Sodium 145 mmol/L (136-145) 02/05/17 05:30 Potassium 3.6 mmol/L (3.5-5.1) 02/05/17 05:30 Chloride 110 mmol/L (98-107) H 02/05/17 05:30 Carbon Dioxide 23.3 mmol/L (21-32) 02/05/17 05:30 BUN 11 mg/dL (7-18) 02/05/17 05:30 Creatinine 0.85 mg/dL (0.55-1.02) 02/05/17 05:30 Est GFR (MDRD) Af Amer > 60 (>60) 02/05/17 05:30 Est GFR (MDRD) Non-Af > 60 (>60) 02/05/17 05:30 Glucose 121 mg/dL (65-99) H 02/05/17 05:30 Calcium 7.5 mg/dL (8.5-10.1) L 02/05/17 05:30 Corrected Calcium 8.3 mg/dL (8.5-10.1) L 02/05/17 05:30 Total Bilirubin 0.60 mg/dL (0.2-1.0) 02/05/17 05:30 AST 32 Units/L (15-37) 02/05/17 05:30 ALT 47 Units/L (12-78) 02/05/17 05:30 Alkaline Phosphatase 85 Units/L (46-116) 02/05/17 05:30 Creatine Kinase 68 Units/L (26-192) 02/03/17 16:00 CK-MB (CK-2) < 1.0 ng/mL (0-4.0) 02/03/17 16:00 CK/CKMB % Calc 1.5 % (<4) 02/03/17 16:00 Troponin I < 0.02 ng/mL (0-1.5) 02/03/17 16:00 Total Protein 6.1 g/dL (6.4-8.2) L 02/05/17 05:30 Albumin 3.0 g/dL (3.4-5.0) L 02/05/17 05:30 Globulin 3.1 g/dL (2.5-4.5) 02/05/17 05:30 Albumin/Globulin Ratio 1.0 Ratio (1.1-2.1) L 02/05/17 05:30 Amylase 42 Units/L (25-115) 02/04/17 05:10 Lipase 158 Units/L (73-393) 02/04/17 05:10 Specimen Type Clean catch urine 02/03/17 17:48 Urine Color Dark yellow (YELLOW) 02/03/17 17:48 Urine Appearance Clear (CLEAR) 02/03/17 17:48 Urine pH 6.0 (5.0 - 8.0) 02/03/17 17:48 Ur Specific [place] 1.025 (1.000-1.030) 02/03/17 17:48 Urine Protein 3+ (NEGATIVE) 02/03/17 17:48 Urine Glucose (UA) Negative (NEGATIVE) 02/03/17 17:48 Urine Ketones Negative (NEGATIVE) 02/03/17 17:48 Urine Occult Blood 1+ (NEGATIVE) 02/03/17 17:48 Urine Nitrite Negative (NEGATIVE) 02/03/17 17:48 Urine Bilirubin Negative (NEGATIVE) 02/03/17 17:48 Urine Urobilinogen 1+ (NORMAL) 02/03/17 17:48 Ur Leukocyte Esterase 1+ (NEGATIVE) 02/03/17 17:48 Urine RBC 0-2 /HPF (NEGATIVE) 02/03/17 17:48 Urine WBC 2-3 /HPF (NEGATIVE) 02/03/17 17:48 Ur Squamous Epith Cells Few /HPF (NEGATIVE) 02/03/17 17:48 Amorphous Sediment Trace /HPF (NEGATIVE) 02/03/17 17:48 Urine Bacteria Trace /HPF (NEGATIVE) 02/03/17 17:48 Urine Mucus Moderate /HPF (NEGATIVE) 02/03/17 17:48 Ur Culture Indicated? No/not indicated 02/03/17 17:48 Stool Description 50g liquid yellowish 02/05/17 05:21 Stl Occult Blood (IFOB) Negative (NEGATIVE) 02/05/17 05:21 Acetone, Semi-Quant Negative (NEGATIVE) 02/03/17 16:07 - Plan (1) Abdominal pain Status: Acute Qualifiers: Abdominal location: A Plan: continue iv atbc therapy, IV hydration, pain and nausea control. repeat am labs, occult stool and culture. blood sugar control. resume home meds. advance diet as tolerate (2) Nausea vomiting and diarrhea Status: Inactive (3) GERD (gastroesophageal reflux disease) Status: Chronic Qualifiers: Esophagitis presence: E Plan: protonix 40 daily (4) Liver cyst Status: Acute Plan: see ct report, consulting Irfan for evaluation. pt has seen Irfan on OP basis for gerd and liver cysts (5) Gastroenteritis Status: Acute (6) Diabetes Status: Chronic Qualifiers: Diabetes mellitus type: type 2 Diabetes mellitus complication status: D Diabetes mellitus complication detail: with nephropathy Diabetic retinopathy severity: D Proliferative retinopathy type: P Diabetes mellitus macular edema: D Diabetes mellitus intermediate frame tender insulin use: D Laterality: L Chronic kidney disease stage: C (7) HTN (hypertension) Status: Chronic Qualifiers: Hypertension type: essential hypertension Qualified Code(s): I10 - Essential (primary) hypertension
[2017-02-05] MEDS: SINGULAIR TAB 10 MG PO SCH (21:01)
[2017-02-05] MEDS: SNACK - Diabetic Appropriate PO SCH (21:05)
[2017-02-06] MEDS: FLAGYL IV PREMIX 500 MG BAG 500 MG/100 ML BAG IV SCH ×2 (02:06→11:22)
[2017-02-06] MEDS: NORCO 5/325 MG TAB PO PRN ×2 (02:11→08:29)
[2017-02-06] MEDS: NS 1000 ML 1,000 ML IV SCH ×2 (02:14→11:04)
[2017-02-06] MEDS: ASPIRIN EC 81 MG PO SCH (09:28)
[2017-02-06] MEDS: CIPRO IV 400 MG PREMIX* 400 MG/200 ML IV.SOLN. IV SCH (09:29)
[2017-02-06] MEDS: PROCARDIA XL PO SCH (09:30)
[2017-02-06] MEDS: VITAMIN C PO SCH (09:30)
[2017-02-06] MEDS: SYNTHROID 50 mcg TAB PO SCH (09:30)
[2017-02-06] MEDS: ZESTRIL TAB 40 MG PO SCH (09:30)
[2017-02-06] MEDS: PROTONIX INJ 40 MG VIAL IVP SCH (09:30)
[2017-02-06] MEDS: VITAMIN D3 PO SCH (09:38)
[2017-02-06] MEDS: PEPCID 20 MG IV PREMIX* 20 MG/50 ML BAG IV PRN (11:03)
[2017-02-06 12:53] VITALS: BP 149/65
[2017-02-06] MEDS ORDERED: LEVSIN SYRUP PO SCH (13:00)
== END 2017-02-06 13:13 | disposition home or self-care (01) ==
LOC: ER 15:40 → OBS 22:11
PROVIDERS: ADMIT Internal Medicine; ATTEND Internal Medicine
DX: K52.89 Other specified noninfective gastroenteritis and colitis (principal); R10.84 Generalized abdominal pain; E86.0 Dehydration; R11.2 Nausea with vomiting, unspecified; K21.9 Gastro-esophageal reflux disease without esophagitis; E11.65 Type 2 diabetes mellitus with hyperglycemia; I10 Essential (primary) hypertension; E03.8 Other specified hypothyroidism; K76.89 Other specified diseases of liver; R14.0 Abdominal distension (gaseous); D72.828 Other elevated white blood cell count; Z79.899 Other long term (current) drug therapy
CPT/HCPCS: 36415; 74177; 80053; 81001; 82009; 82150; 82270; 82550; 82553; 83690; 84484; 85025; 87040; 87045; 87427; 87493; 87899; 96365; 96367; 96374; 96375; 99284; A4222; C9113; S0028; S0030; G0378; J0744; J2175; J2270; J2405; J2550

== ENCOUNTER → 2017-03-30 | Outpatient (CLI) | payer OTHER ==
[2017-03-30 15:45] LABS: BILIRUBIN,DIRECT 0.11 mg/dL (0-0.2); TOTAL PROTEIN 7.9 g/dL (6.4-8.2)
== END ==
LOC: LAB 15:06
PROVIDERS: ATTEND Internal Medicine Gastroenterology
DX: K76.0 Fatty (change of) liver, not elsewhere classified (principal)
CPT/HCPCS: 36415; 80076

== ENCOUNTER → 2017-07-02 | Outpatient (CLI) | payer OTHER ==
[2017-07-02 10:28] LABS: BASOPHILS # (AUTO) 0.1 X10^3/uL (0.0-0.1); BASOPHILS % (AUTO) 0.6 % (0.2-1.0); EOSINOPHILS # (AUTO) 0.1 x10^3/uL (0.0-0.2); EOSINOPHILS % (AUTO) 1.4 % (0.9-2.9); HEMATOCRIT 39.3 % (36.0-47.0); HEMOGLOBIN 13.5 g/dL (12.0-16.0); LYMPHOCYTES # (AUTO) 2.1 X10^3/uL (1.3-2.9); LYMPHOCYTES % (AUTO) 23.6 % (21.0-51.0); MEAN CORPUSCULAR HEMOGLOBIN 29.8 pg (27.0-34.0); MEAN CORPUSCULAR HGB CONC 34.2 g/dL (33.0-35.0); MEAN CORPUSCULAR VOLUME 87.3 fL (80.0-100.0); MEAN PLATELET VOLUME 9.9 fL (7.4-11.0); MONOCYTES # (AUTO) 0.6 x10^3/uL (0.3-0.8); MONOCYTES % (AUTO) 6.9 % (0.0-13.0); NEUTROPHILS # (AUTO) 6.1 x10^3/uL (2.2-4.8); NEUTROPHILS % (AUTO) 67.5 % (42.0-75.0); PLATELET COUNT 232 X10^3/uL (150.0-450.0); RED BLOOD COUNT 4.51 X10^6/uL (3.5-5.4); RED CELL DISTRIBUTION WIDTH 13.4 % (11.6-16.5); WHITE BLOOD COUNT 9.1 X10^3/uL (3.6-10.0)
[2017-07-02 10:48] LABS: ALANINE AMINOTRANSFERASE 36 Units/L (12-78); ALBUMIN 3.9 g/dL (3.4-5.0); ALKALINE PHOSPHATASE 110 Units/L (46-116); ASPARTATE AMINO TRANSFERASE 23 Units/L (15-37); BLOOD UREA NITROGEN 20 mg/dL (7-18); CALCIUM 9.9 mg/dL (8.5-10.1); CHLORIDE 105 mmol/L (98-107); CHOLESTEROL 198 mg/dL (0-200); COR NA(FOR HYPERGLY) 142 mmol/L (136-145); CREATININE 1.22 mg/dL (0.55-1.02); FREE T4 (FREE THYROXINE) 1.29 ng/dL (0.76-1.46); HDL CHOLESTEROL 49 mg/dL (40-60); SODIUM 140 mmol/L (136-145); TOTAL PROTEIN 7.5 g/dL (6.4-8.2); TRIGLYCERIDES 148 mg/dL (0-150); TSH (3RD GENERATION) 0.836 uIU/mL (0.358-3.74); eGFR BLACK RACES 57 (>60); eGFR NON BLACK RACES 47 (>60)
== END | disposition home or self-care (01) | DRG 642 ==
LOC: LAB 09:49
PROVIDERS: ATTEND Nurse Practitioner Family
DX: E78.4 Other hyperlipidemia (principal); I12.9 Hypertensive chronic kidney disease with stage 1 through stage 4 chronic kidney disease, or unspecified chronic kidney disease; N18.1 Chronic kidney disease, stage 1; E11.9 Type 2 diabetes mellitus without complications; E05.90 Thyrotoxicosis, unspecified without thyrotoxic crisis or storm
CPT/HCPCS: 36415; 80053; 80061; 84439; 84443; 85025

== ENCOUNTER 2017-10-22 22:16 | Inpatient (IN) | payer OTHER ==
[2017-10-22 23:12] LABS: BILIRUBIN,URINE NEGATIVE (NEGATIVE); BLOOD/HEMOGLOBIN,URINE 3+ (NEGATIVE); GLUCOSE, URINE NEGATIVE (NEGATIVE); KETONES,URINE 1+ (NEGATIVE); LEUKOCYTE ESTERASE ,URINE NEGATIVE (NEGATIVE); NITRITES,URINE NEGATIVE (NEGATIVE); PH,URINE 6.5 (5.0 - 8.0); PROTEIN,URINE 2+ (NEGATIVE); UROBILINOGEN,URINE NORMAL (NORMAL)
[2017-10-22 23:18] LABS: APPEARANCE,URINE HAZY (CLEAR); COLOR,URINE YELLOW (YELLOW)
[2017-10-22] MEDS ORDERED: MORPHINE SULFATE INJ 4 MG ONE (23:51)
[2017-10-22] MEDS ORDERED: MORPHINE SULFATE INJ 10 MG IVP ONE (23:51)
[2017-10-23 00:08] LABS: BASOPHILS # (AUTO) 0.1 X10^3/uL (0.0-0.1); BASOPHILS % (AUTO) 0.3 % (0.2-1.0); HEMOGLOBIN 12.5 g/dL (12.0-16.0); MEAN CORPUSCULAR HEMOGLOBIN 29.6 pg (27.0-34.0); MONOCYTES # (AUTO) 1.8 x10^3/uL (0.3-0.8); RED BLOOD COUNT 4.21 X10^6/uL (3.5-5.4); WHITE BLOOD COUNT 24.3 X10^3/uL (3.6-10.0)
[2017-10-23 00:12] LABS: EOSINOPHILS % (AUTO) 0.1 % (0.9-2.9); HEMATOCRIT 36.5 % (36.0-47.0); LYMPHOCYTES # (AUTO) 2.5 X10^3/uL (1.3-2.9); LYMPHOCYTES % (AUTO) 10.4 % (21.0-51.0); MEAN CORPUSCULAR HGB CONC 34.2 g/dL (33.0-35.0); MEAN CORPUSCULAR VOLUME 86.7 fL (80.0-100.0); MEAN PLATELET VOLUME 9.3 fL (7.4-11.0); MONOCYTES % (AUTO) 7.3 % (0.0-13.0); NEUTROPHILS # (AUTO) 19.9 x10^3/uL (2.2-4.8); NEUTROPHILS % (AUTO) 81.9 % (42.0-75.0); PLATELET COUNT 259 X10^3/uL (150.0-450.0); RED CELL DISTRIBUTION WIDTH 13.1 % (11.6-16.5)
--- NOTE | 2017-10-23 00:12 | DR.GENAD ---
HPI - PCP Primary Care Physician: CHALINO - Complaint/Symptoms Chief Complaint Doctors Comments: Patient reports that she developed cough and congestion later part of last week. She thought that she would be doing better but is not. She called her primary care physician today and an antibiotic was called in for her. She took one dose and states that she is no better.. In getting history patient frequently complained of right inferior rib cag pain. She admits to abdominal cys and frequent pain. Chief Complaint:: PCP CALLED IN Z-PACK TODAY BUT PT STATES SHE IS WORSE TONIGHT ; SOB Self Treatment fo Chief Complaint: MUCINEX DM YESTERDAY - Source History Provided: Patient - Mode of Arrival Mode of Arrival: Wheelchair - Timing Onset of Chief Complaint: 10/16/17 PMH - PMH Past Medical History: Yes Past Medical History: Diabetes, Hypertension Past Medical History Comment: METFORMIN; HX OF COLITIS Past Surgical History: Yes Surgical History: Appendectomy, Hysterectomy - Family History History of Family Medical Conditions: No Family Medical History: Diabetes Mellitus, [place], Coronary Artery Disease, Hypertension - Social History Alcohol Use: None Do you use any recreational Drugs:: No Lives With: Family Lives Where: Home - infectious screening In the last 2 months have you had wt loss of >10#?: NO Have you had fever, night sweats or hemotysis?: No Have you traveled outside the country in the last 6 months?: No Isolation: Standard ROS - Review of Systems Eyes: No Symptoms Reported ENTM: No Symptoms Reported Respiratoy: No Symptoms Reported Cardiovascular: No Symptoms Reported Gastrointestinal/Abdominal: Abdominal Pain, Constipation Genitourinary: No Symptoms Reported Neurological: No Symptoms Reported Musculoskeletal: Back Integumentary: No Symptoms Reported Hematologic/Lymphatic: No Symptoms Reported Endocrine: No Symptoms Reported Psychiatric: No Symptoms Reported All Other Systems: Reviewed and Negative PE - Vital Signs Vitals: Temperature 100.2 F Pulse Rate 96 Respiratory Rate 26 Blood Pressure [Left Arm] 149/65 Blood Pressure [Right Arm] 149/70 Blood Pressure 138/60 O2 Sat by Pulse Oximetry 98 - General Limitations: No Limitations General Appearance: Alert, In No Apparent Distress - Head Head Exam: Normal Inspection, Atraumatic - Eyes Eye exam: Normal Appearance, PERRL, EOMI - ENT ENT Exam: Normal Exam External Ear Exam: Normal External Inspection TM/Canal Exam: Bilateral Normal Nose Exam: Normal Nose Exam Mouth Exam: Normal Inspection Throat Exam: Normal Inspection - Neck Neck Exam: Normal Inspection - Chest Chest Inspection: Normal Inspection - Respiratory Respiratory Exam: Normal Lung Sounds Bilat, Chest Wall Tenderness (Right lower costal margin). negative: Accessory Muscle Use Respiratory Exam: Bilateral Clear to Auscultation, Bilateral Decreased Breath Sounds (RUL) - Cardiovascular Cardiovascular Exam: Regular Rate - Abdominal Exam Abdominal Exam: Distention, Tenderness (Right costal margin and transverse colon ) Abdominal Tenderness: RUQ, Suprapubic - Extremities Extremities Exam: Normal Inspection, Full ROM - Back Back Exam: Normal Inspection, Tenderness (Right upper back) - Neurologic Neurological Exam: Alert, Oriented X3, CN II-XII Intact - Psychiatric Psychiatric Exam: Normal Affect, Anxious - Skin Skin Exam: Warm, Dry, Intact Course - Reevaluation 1st: Unchanged - Consultation Called: 01:40 ROR - Labs Reviewed Result Diagrams: 10/22/17 23:55 10/22/17 23:55 Laboratory: 10/23/17 02:15 Sputum - Expectorated Sputum - Final WBC 24.3 X10^3/uL (3.6-10.0) H 10/22/17 23:55 RBC 4.21 X10^6/uL (3.5-5.4) 10/22/17 23:55 Hgb 12.5 g/dL (12.0-16.0) 10/22/17 23:55 Hct 36.5 % (36.0-47.0) 10/22/17 23:55 MCV 86.7 fL (80.0-100.0) 10/22/17 23:55 MCH 29.6 pg (27.0-34.0) 10/22/17 23:55 MCHC 34.2 g/dL (33.0-35.0) 10/22/17 23:55 RDW 13.1 % (11.6-16.5) 10/22/17 23:55 Plt Count 259 X10^3/uL (150.0-450.0) 10/22/17 23:55 Plt Count Comment Adequate (ADEQUATE) 10/22/17 23:55 MPV 9.3 fL (7.4-11.0) 10/22/17 23:55 Neut % 81.9 % (42.0-75.0) H 10/22/17 23:55 Lymph % 10.4 % (21.0-51.0) L 10/22/17 23:55 [place] % 7.3 % (0.0-13.0) 10/22/17 23:55 Eos % 0.1 % (0.9-2.9) L 10/22/17 23:55 Baso % 0.3 % (0.2-1.0) 10/22/17 23:55 Neut # 19.9 x10^3/uL (2.2-4.8) H 10/22/17 23:55 Lymph # 2.5 X10^3/uL (1.3-2.9) 10/22/17 23:55 [place] # 1.8 x10^3/uL (0.3-0.8) H 10/22/17 23:55 Eos # 0.0 x10^3/uL (0.0-0.2) 10/22/17 23:55 Baso # 0.1 X10^3/uL (0.0-0.1) 10/22/17 23:55 Absolute Nucleated RBC 0.0 /100WBC 10/22/17 23:55 Total Counted 100 10/22/17 23:55 Neutrophils % (Manual) 74 % (39-76) 10/22/17 23:55 Band Neutrophils % 5 % (0-10) 10/22/17 23:55 Lymphocytes % (Manual) 14 % (13-43) 10/22/17 23:55 Monocytes % (Manual) 7 % (4-9) 10/22/17 23:55 Plt Morphology Comment Normal (NORMAL) 10/22/17 23:55 RBC Morphology Normal (NORMAL) 10/22/17 23:55 Sodium 131 mmol/L (136-145) L 10/22/17 23:55 Corrected Sodium 132 mmol/L (136-145) L 10/22/17 23:55 Potassium 3.9 mmol/L (3.5-5.1) 10/22/17 23:55 Chloride 95 mmol/L (98-107) L 10/22/17 23:55 Carbon Dioxide 25.2 mmol/L (21-32) 10/22/17 23:55 BUN 12 mg/dL (7-18) 10/22/17 23:55 Creatinine 1.06 mg/dL (0.55-1.02) H 10/22/17 23:55 Est GFR (MDRD) Af Amer > 60 (>60) 10/22/17 23:55 Est GFR (MDRD) Non-Af 55 (>60) L 10/22/17 23:55 Glucose 151 mg/dL (65-99) H 10/22/17 23:55 Calcium 9.4 mg/dL (8.5-10.1) 10/22/17 23:55 Corrected Calcium TNP 10/22/17 23:55 Total Bilirubin 1.40 mg/dL (0.2-1.0) H 10/22/17 23:55 AST 25 Units/L (15-37) 10/22/17 23:55 ALT 50 Units/L (12-78) 10/22/17 23:55 Alkaline Phosphatase 137 Units/L (46-116) H 10/22/17 23:55 C-Reactive Protein 120.90 mg/L (0-3.0) H 10/22/17 23:55 Total Protein 7.6 g/dL (6.4-8.2) 10/22/17 23:55 Albumin 3.6 g/dL (3.4-5.0) 10/22/17 23:55 Globulin 4.0 g/dL (2.5-4.5) 10/22/17 23:55 Albumin/Globulin Ratio 0.9 Ratio (1.1-2.1) L 10/22/17 23:55 Specimen Type Clean catch urine 10/22/17 22:50 Urine Color Yellow (YELLOW) 10/22/17 22:50 Urine Appearance Hazy (CLEAR) 10/22/17 22:50 Urine pH 6.5 (5.0 - 8.0) 10/22/17 22:50 Ur Specific [place] 1.010 (1.000-1.030) 10/22/17 22:50 Urine Protein 2+ (NEGATIVE) 10/22/17 22:50 Urine Glucose (UA) Negative (NEGATIVE) 10/22/17 22:50 Urine Ketones 1+ (NEGATIVE) 10/22/17 22:50 Urine Occult Blood 3+ (NEGATIVE) 10/22/17 22:50 Urine Nitrite Negative (NEGATIVE) 10/22/17 22:50 Urine Bilirubin Negative (NEGATIVE) 10/22/17 22:50 Urine Urobilinogen Normal (NORMAL) 10/22/17 22:50 Ur Leukocyte Esterase Negative (NEGATIVE) 10/22/17 22:50 Urinalysis Comment QNS 10/22/17 22:50 Influenza Type A (PCR) Negative (NEGATIVE) 10/22/17 22:50 Influenza Type B (PCR) Negative (NEGATIVE) 10/22/17 22:50 Streptococcus Screen Negative (NEGATIVE) 10/22/17 22:50 - XRAY XRAY Interpreted by: Radiologist (CT Abd/Pel: There is dense airspace consolidation of the visualized right upper lobe. The remaining visualized lung bases are clear. No aggressive osseous lesions are identified. Multiple large cyst throughout the left and right hepatic lobes are again noted and grossly unchanged since prior exam (02/03/17). The main portal vein is patent. The gallbladder is surgically absent. The spleen, pancreas and adrenals are unremarkable. Both kidneys are unremarkable aprtt from a stable probable cyst within the inferior right kidney. Moderate stool is present throughout the asending and transverse colon. There is no bowel inflammation or obstruction. The appendix is normal. There is moderate calcification of the abdominal aorta without aneurysm. The urinary bladder is normal. The patient is post hysterectomy. No free air, free fluid or lymphadenopathy is identified. Impression 1.RUL consolidation c/w pneumonia 2.Grossly stable numerous cysts throughout the liver 3. Constipation, 4. Vascular calcification) - Diagnosis Discharge Problem: Hyponatremia Right upper lobe pneumonia Qualifiers: Pneumonia type: due to unspecified organism Qualified Code(s): J18.1 - Lobar pneumonia, unspecified organism Constipation Qualifiers: Constipation type: slow transit constipation Qualified Code(s): K59.01 - Slow transit constipation - Discharge Plan Condition: Stable - Follow ups/Referrals Follow ups/Referrals: AURELIANO ALLRED [Primary Care Provider] - 3 days - Instructions
[2017-10-23 00:17] LABS: ALANINE AMINOTRANSFERASE 50 Units/L (12-78); ALBUMIN 3.6 g/dL (3.4-5.0); ALKALINE PHOSPHATASE 137 Units/L (46-116); ASPARTATE AMINO TRANSFERASE 25 Units/L (15-37); BLOOD UREA NITROGEN 12 mg/dL (7-18); CALCIUM 9.4 mg/dL (8.5-10.1); CARBON DIOXIDE 25.2 mmol/L (21-32); CHLORIDE 95 mmol/L (98-107); COR NA(FOR HYPERGLY) 132 mmol/L (136-145); CREATININE 1.06 mg/dL (0.55-1.02); SODIUM 131 mmol/L (136-145); TOTAL PROTEIN 7.6 g/dL (6.4-8.2); eGFR BLACK RACES > 60 (>60); eGFR NON BLACK RACES 55 (>60)
[2017-10-23 00:23] LABS: BAND NEUTROPHILS % 5 % (0-10); PLATELET MORPHOLOGY COMMENT NORMAL (NORMAL)
[2017-10-23] MEDS ORDERED: NS 100 ML IV 0 ML IV ONE (00:29)
--- NOTE | 2017-10-23 01:15 | CT ---
CT abdomen and pelvis with contrast Indication: Cough, right upper quadrant pain, right back pain Technique: Helical CT images of the abdomen and pelvis were obtained with IV contrast. Reformatted im ages in the coronal and sagittal planes were also generated for review. Comparison: 02/03/2017 Findings: There is dense airspace consolidation of the visualized right upper lobe. The remaining vis ualized lung bases are clear. No aggressive osseous lesions are identified. Multiple large cysts throughout the left and right hepatic lobes are again noted and grossly unchange d since prior exam. The main portal vein is patent. The gallbladder is surgically absent. The spleen, pancreas and adrenals are unremarkable. Both kidneys are unremarkable apart from a stable probable c yst within the inferior right kidney. Moderate stool is present throughout the ascending and transverse colon. There is no bowel inflammati on or obstruction. The appendix is normal. There is moderate calcification of the abdominal aorta wit hout aneurysm. The urinary bladder is normal. The patient is post hysterectomy. No free air, free flu id or lymphadenopathy is identified. Impression: No acute abnormality identified to explain patient's abdominal symptoms. Dense consolidation of the visualized right upper lobe, compatible with pneumonia. Grossly stable numerous cysts throughout the liver. Constipation, vascular calcifications and additional incidental findings, as above. Reported By:
--- NOTE | 2017-10-23 01:37 | RAD ---
Chest, one-view Indication: Cough, right upper quadrant pain, right back pain Comparison: 11/26/2011 Findings: Heart size is normal. There are patchy opacities within the mid right lung field. Remainder of the lungs are clear. No significant pleural effusion or pneumothorax is identified. No acute osse ous abnormality is seen. Impression: Patchy right-sided airspace disease, suspicious for pneumonia. Clinical correlation and f ollow-up to complete resolution recommended. Reported By:
[2017-10-23] MEDS ORDERED: SALINE 3% 15 ML NEB TX ONE (01:42)
[2017-10-23] MEDS ORDERED: SALINE 3% 15 ML NEB TX NEB ONE (02:00)
[2017-10-23] MEDS ORDERED: ROCEPHIN VIAL 1 GM ONE (02:17)
[2017-10-23] MEDS ORDERED: NS 100 ML IV 100 ML IV ONE ×2 (02:17→20:44)
[2017-10-23] MEDS ORDERED: NS 1000 ML 1,000 ML ONE (02:18)
[2017-10-23] MEDS: ROCEPHIN VIAL 1 GM 1 GM in NS 100 ML IV + SPIKE MINIBAG* 100 ML IV SCH ×2 (02:30→11:11)
[2017-10-23] MEDS: NS 1000 ML 1,000 ML IV SCH ×3 (02:30→21:24)
[2017-10-23] MEDS ORDERED: ZOFRAN INJ 4 MG VIAL IVP PRN (02:59)
[2017-10-23] MEDS ORDERED: NS 1/2 1000 ML IV 1,000 ML IV SCH (03:00)
[2017-10-23] MEDS: DUONEB 0.5 MG/3 MG NEB SCH ×5 (05:09→20:29)
[2017-10-23] MEDS: MORPHINE SULFATE INJ 10 MG IVP PRN ×4 (06:05→20:30)
[2017-10-23 07:10] LABS: BASOPHILS % (AUTO) 0.2 % (0.2-1.0); HEMATOCRIT 33.4 % (36.0-47.0); HEMOGLOBIN 11.4 g/dL (12.0-16.0); LYMPHOCYTES # (AUTO) 1.5 X10^3/uL (1.3-2.9); LYMPHOCYTES % (AUTO) 5.9 % (21.0-51.0); MEAN CORPUSCULAR HEMOGLOBIN 29.4 pg (27.0-34.0); MEAN CORPUSCULAR VOLUME 86.4 fL (80.0-100.0); MONOCYTES # (AUTO) 1.9 x10^3/uL (0.3-0.8); MONOCYTES % (AUTO) 7.7 % (0.0-13.0); NEUTROPHILS # (AUTO) 21.3 x10^3/uL (2.2-4.8); NEUTROPHILS % (AUTO) 86.2 % (42.0-75.0); PLATELET COUNT 210 X10^3/uL (150.0-450.0); RED BLOOD COUNT 3.86 X10^6/uL (3.5-5.4); WHITE BLOOD COUNT 24.7 X10^3/uL (3.6-10.0)
[2017-10-23 07:20] LABS: ALANINE AMINOTRANSFERASE 46 Units/L (12-78); ALBUMIN 3.1 g/dL (3.4-5.0); ALKALINE PHOSPHATASE 122 Units/L (46-116); ASPARTATE AMINO TRANSFERASE 24 Units/L (15-37); BLOOD UREA NITROGEN 13 mg/dL (7-18); CALCIUM 8.8 mg/dL (8.5-10.1); CARBON DIOXIDE 22.2 mmol/L (21-32); CHLORIDE 94 mmol/L (98-107); COR CA(FOR HYPOALB) 9.5 mg/dL (8.5-10.1); COR NA(FOR HYPERGLY) 133 mmol/L (136-145); PLATELET MORPHOLOGY COMMENT NORMAL (NORMAL); SODIUM 128 mmol/L (136-145); TOTAL PROTEIN 6.9 g/dL (6.4-8.2); eGFR BLACK RACES > 60 (>60); eGFR NON BLACK RACES 53 (>60)
[2017-10-23] MEDS ORDERED: ALLEGRA PO PRN (08:13)
[2017-10-23] MEDS ORDERED: GLUCOPHAGE ONE (09:46)
[2017-10-23] MEDS: GLUCOPHAGE PO SCH ×3 (09:52→17:00)
[2017-10-23] MEDS: ZESTRIL TAB 40 MG PO SCH (09:52)
[2017-10-23] MEDS: SYNTHROID 50 mcg TAB PO SCH (09:53)
[2017-10-23] MEDS: PROTONIX TAB 40 MG PO SCH (09:53)
[2017-10-23] MEDS: VITAMIN C PO SCH (09:53)
[2017-10-23] MEDS: HYDROCHLOROTHIAZIDE 25 MG TAB PO SCH (09:53)
[2017-10-23] MEDS: CLARITIN PO SCH (09:54)
[2017-10-23] MEDS: ROCEPHIN VIAL 1 GM 1 GM in NS 100 ML IV 100 ML IV SCH (09:54)
[2017-10-23] MEDS: PROCARDIA XL PO SCH (09:54)
[2017-10-23] MEDS: ROBITUSSIN DM PO SCH ×4 (09:54→21:26)
[2017-10-23] MEDS: VIBRAMYCIN 100 MG in NS 100 ML IV + SPIKE MINIBAG* 100 ML IV SCH ×2 (11:09→21:24)
--- NOTE | 2017-10-23 14:38 | DR.H&P ---
H&P - History & Physical for Day of: H&P Date: 10/23/17 - Chief Complaint Chief Complaint: fever, bodyaches, nausea - Allergies Allergies/Adverse Reactions: Allergies Allergy/AdvReac Type Severity Reaction Status Date / Time No Known Drug Allergies Allergy Verified 10/22/17 22:26 - History of Present Illness History of Present Illness: patient is a 67-year-old white female who was in ER admission after presenting with complaints of fever for several days. Patient reports she had a upper respiratory infection started a Z-Jai last Thursday. Patient denies any increased shortness of breath or productive cough however she complains of right upper back pain. Patient states she's also had some nausea and multiple bowel movements but not diarrhea. Patient has a past medical history of high blood pressure and diabetes. Patient had a CT of her abdomen and pelvis in the ER revealing a right lobe pneumonia. Patient admitted for further evaluation of respiratory illness, blood and sputum cultures ordered, IV antibiotics and respiratory therapy. Plan to continue patient's home medication with blood pressure and blood sugar control. - Past Medical History Past Medical History: Diabetes, Hypertension - Past Surgical History Surgical History: Appendectomy, Cholecystectomy, [employer] Surgery, Hysterectomy - Family History Family Medical History: Diabetes Mellitus, Coronary Artery Disease, Hypertension - Social History Does patient currently use any type of tobacco product: No Have you used tobacco products in the last 12 months: No Type of Tobacco Use: None Does any household member use tobacco: No Alcohol Use: Rarely Drug Use: None - Medications Home Medications: Ascorbic Acid [VITAMIN C tab 500 mg *] 1 tab PO DAILY 10/23/17 [History Confirmed 10/23/17] Cholecalciferol (Vitamin D3) [Vitamin D3] 1 cap PO DAILY 10/23/17 [History Confirmed 10/23/17] Cinnamon Bark [Cinnamon] 2 cap PO HS 10/23/17 [History Confirmed 10/23/17] Cyanocobalamin (Vitamin B-12) [Vitamin B-12] 1 cap PO SUWE 10/23/17 [History Confirmed 10/23/17] Fexofenadine HCl [LAMIN 180 MG TAB *] 1 tab PO DAILY PRN 10/23/17 [History Confirmed 10/23/17] Levocetirizine Dihydrochloride [Xyzal] 1 tab PO HS 10/23/17 [History Confirmed 10/23/17] Loratadine 10 mg 24-Hr Tab [LORATADINE 10 MG *] 1 tab PO DAILY 10/23/17 [ History Confirmed 10/23/17] - Review of Systems Constitutional: Fever, Chills, Weakness Eyes: No Symptoms Reported ENT: No Symptoms Reported Respiratory: No Symptoms Reported Cardiovascular: No Symptoms Reported Gastrointestinal: Nausea Genitourinary: No Symptoms Reported Musculoskeletal: Back Pain Skin: No Symptoms Reported Neurological: No Symptoms Reported - Physical Exam Vital Signs: Temperature 98.1 F Pulse Rate [Right Brachial] 77 Pulse Rate [Left Brachial] 80 Pulse Rate 83 Respiratory Rate 18 Blood Pressure [Left Arm] 149/65 Blood Pressure [Right Arm] 137/65 Blood Pressure 138/60 O2 Sat by Pulse Oximetry 91 Oriented: Normal Eyes: Normal Ear: Normal Nose: Normal Throat: Normal Respiratory: RLL Diminished, LLL Diminished Cardiovascular: Normal : Normal Auscultation: Bowel Sounds: Normal Palpation: Normal Tenderness: Normal Skin: Normal Musculoskeletal: Back:Lumbar Psychiatric: Anxiety Affect: Anxious Speech Pattern: Clear, Appropriate - Assessment/Plan (1) Right upper lobe pneumonia Qualifiers: Pneumonia type: due to unspecified organism Qualified Code(s): J18.1 - Lobar pneumonia, unspecified organism Status: Acute Plan: admit, resp therapy, iv abtx. blood and sputum cultures. supplemental o2 , pulmonary toileting. resume home meds, hold metformin, ssi for blood sugar control. repeat am labs and chest xray (2) Constipation Qualifiers: Constipation type: slow transit constipation Qualified Code(s): K59.01 - Slow transit constipation Status: Acute (3) Diabetes Status: Chronic (4) GERD (gastroesophageal reflux disease) Status: Chronic (5) HTN (hypertension) Status: Chronic
[2017-10-23] MEDS ORDERED: CINNAMON BARK PO SCH (21:00)
[2017-10-23] MEDS ORDERED: PATIENT'S HOME MEDICATION (Levocetirizine Dihydrochloride [Xyzal] 1 TAB) PO SCH (21:00)
[2017-10-23] MEDS: ASPIRIN EC 81 MG PO SCH (21:26)
[2017-10-23] MEDS: SINGULAIR TAB 10 MG PO SCH (21:26)
[2017-10-23] MEDS: TUSSIONEX PENNKINETIC SUSP PO PRN (21:26)
[2017-10-24] MEDS: DUONEB 0.5 MG/3 MG NEB SCH ×6 (00:18→21:11)
[2017-10-24 06:17] LABS: BASOPHILS % (AUTO) 0.2 % (0.2-1.0); EOSINOPHILS # (AUTO) 0.1 x10^3/uL (0.0-0.2); EOSINOPHILS % (AUTO) 0.6 % (0.9-2.9); HEMOGLOBIN 10.6 g/dL (12.0-16.0); LYMPHOCYTES # (AUTO) 2.3 X10^3/uL (1.3-2.9); LYMPHOCYTES % (AUTO) 10.9 % (21.0-51.0); MEAN CORPUSCULAR HEMOGLOBIN 29.5 pg (27.0-34.0); MEAN CORPUSCULAR HGB CONC 34.2 g/dL (33.0-35.0); MEAN CORPUSCULAR VOLUME 86.1 fL (80.0-100.0); MEAN PLATELET VOLUME 9.8 fL (7.4-11.0); MONOCYTES # (AUTO) 1.5 x10^3/uL (0.3-0.8); NEUTROPHILS # (AUTO) 17.2 x10^3/uL (2.2-4.8); NEUTROPHILS % (AUTO) 81.3 % (42.0-75.0); PLATELET COUNT 217 X10^3/uL (150.0-450.0); RED CELL DISTRIBUTION WIDTH 13.2 % (11.6-16.5); WHITE BLOOD COUNT 21.2 X10^3/uL (3.6-10.0)
[2017-10-24 06:30] LABS: ALANINE AMINOTRANSFERASE 37 Units/L (12-78); ASPARTATE AMINO TRANSFERASE < 6 Units/L (15-37); eGFR BLACK RACES > 60 (>60); eGFR NON BLACK RACES > 60 (>60)
[2017-10-24 06:58] LABS: BAND NEUTROPHILS % 1 % (0-10); PLATELET MORPHOLOGY COMMENT NORMAL (NORMAL)
[2017-10-24 07:00] LABS: ALKALINE PHOSPHATASE 110 Units/L (46-116); BLOOD UREA NITROGEN 13 mg/dL (7-18); CALCIUM 8.4 mg/dL (8.5-10.1); CARBON DIOXIDE 24.6 mmol/L (21-32); CHLORIDE 98 mmol/L (98-107); COR CA(FOR HYPOALB) 9.2 mg/dL (8.5-10.1); COR NA(FOR HYPERGLY) 135 mmol/L (136-145); CREATININE 0.98 mg/dL (0.55-1.02); SODIUM 133 mmol/L (136-145); TOTAL PROTEIN 6.9 g/dL (6.4-8.2)
[2017-10-24] MEDS ORDERED: POTASSIUM CHL 40 MEQ/NS 0.45% 500 ML IV PRN (07:29)
[2017-10-24] MEDS ORDERED: K-RIDER 10 MEQ/NS 100 ML 10 MEQ/100 ML BAG IV PRN (07:29)
[2017-10-24] MEDS ORDERED: POTASSIUM CHLORIDE LIQ 20 MEQ UDC PO PRN (07:29)
[2017-10-24] MEDS ORDERED: POTASSIUM CHL 60 MEQ/NS 0.45% 500 ML IV PRN (07:29)
--- NOTE | 2017-10-24 07:42 | RAD ---
HISTORY: Pneumonia Study: PA and lateral views of the chest. Comparison: 10/23/2017 Findings: Interval worsening of right upper lobe airspace opacity. Heart is normal in size. Osseous structures demonstrate no acute abnormality. IMPRESSION: 1. Interval worsening of right upper lobe airspace opacity. Reported By:
[2017-10-24] MEDS: ROBITUSSIN DM PO SCH ×4 (08:14→21:14)
[2017-10-24] MEDS: NS 1000 ML 1,000 ML IV SCH ×3 (08:14→22:14)
[2017-10-24] MEDS: ROCEPHIN VIAL 1 GM 1 GM in NS 100 ML IV 100 ML IV SCH (08:14)
[2017-10-24] MEDS: CLARITIN PO SCH (09:00)
[2017-10-24] MEDS: PROCARDIA XL PO SCH (09:00)
[2017-10-24] MEDS: PROTONIX TAB 40 MG PO SCH (09:00)
[2017-10-24] MEDS: HYDROCHLOROTHIAZIDE 25 MG TAB PO SCH (09:00)
[2017-10-24] MEDS: SYNTHROID 50 mcg TAB PO SCH (09:03)
[2017-10-24] MEDS: ZESTRIL TAB 40 MG PO SCH (09:04)
[2017-10-24] MEDS: TUSSIONEX PENNKINETIC SUSP PO PRN ×2 (09:04→22:17)
[2017-10-24] MEDS: VITAMIN D3 PO SCH (09:04)
[2017-10-24] MEDS: K-LYTE EFFERVESCENT PO PRN (09:04)
[2017-10-24] MEDS: VITAMIN C PO SCH (09:04)
[2017-10-24] MEDS: VIBRAMYCIN 100 MG in NS 100 ML IV 100 ML IV SCH ×2 (09:33→21:15)
[2017-10-24 10:37] VITALS: BMI 32.4
[2017-10-24] MEDS: MILK OF MAGNESIA PO PRN (13:45)
[2017-10-24] MEDS: NORCO 5/325 MG TAB PO PRN ×2 (13:45→22:16)
[2017-10-24] MEDS: SINGULAIR TAB 10 MG PO SCH (21:14)
[2017-10-24] MEDS: ASPIRIN EC 81 MG PO SCH (21:30)
[2017-10-24] MEDS: MUCINEX EXPECTORANT PO SCH (22:15)
[2017-10-25] MEDS: DUONEB 0.5 MG/3 MG NEB SCH ×6 (01:00→21:40)
[2017-10-25 06:32] LABS: BASOPHILS % (AUTO) 0.3 % (0.2-1.0); EOSINOPHILS # (AUTO) 0.2 x10^3/uL (0.0-0.2); EOSINOPHILS % (AUTO) 1.3 % (0.9-2.9); HEMATOCRIT 32.7 % (36.0-47.0); LYMPHOCYTES # (AUTO) 1.9 X10^3/uL (1.3-2.9); MEAN CORPUSCULAR HEMOGLOBIN 29.2 pg (27.0-34.0); MEAN CORPUSCULAR HGB CONC 33.8 g/dL (33.0-35.0); MEAN CORPUSCULAR VOLUME 86.4 fL (80.0-100.0); MEAN PLATELET VOLUME 9.7 fL (7.4-11.0); MONOCYTES # (AUTO) 1.6 x10^3/uL (0.3-0.8); MONOCYTES % (AUTO) 8.5 % (0.0-13.0); NEUTROPHILS # (AUTO) 14.9 x10^3/uL (2.2-4.8); NEUTROPHILS % (AUTO) 79.9 % (42.0-75.0); PLATELET COUNT 267 X10^3/uL (150.0-450.0); RED BLOOD COUNT 3.78 X10^6/uL (3.5-5.4); RED CELL DISTRIBUTION WIDTH 13.1 % (11.6-16.5); WHITE BLOOD COUNT 18.6 X10^3/uL (3.6-10.0)
[2017-10-25 06:51] LABS: ALANINE AMINOTRANSFERASE 33 Units/L (12-78); ALKALINE PHOSPHATASE 139 Units/L (46-116); ASPARTATE AMINO TRANSFERASE 20 Units/L (15-37); BLOOD UREA NITROGEN 8 mg/dL (7-18); CALCIUM 9.1 mg/dL (8.5-10.1); CARBON DIOXIDE 26.7 mmol/L (21-32); CHLORIDE 97 mmol/L (98-107); COR CA(FOR HYPOALB) 9.9 mg/dL (8.5-10.1); COR NA(FOR HYPERGLY) 133 mmol/L (136-145); CREATININE 0.94 mg/dL (0.55-1.02); SODIUM 131 mmol/L (136-145); TOTAL PROTEIN 7.2 g/dL (6.4-8.2); eGFR BLACK RACES > 60 (>60); eGFR NON BLACK RACES > 60 (>60)
--- NOTE | 2017-10-25 07:22 | RAD ---
Examination: Chest, PA and lateral views History: Follow-up pneumonia Comparison 10/24/2017 Findings: There is persistent peripheral airspace consolidation in the right mid lung. There is now a n enlarging right pleural effusion. Heart size and left lung remain normal. Impression: Persistent consolidation right lung with increasing right pleural effusion. Reported By:
[2017-10-25] MEDS ORDERED: CYANOCOBALAMIN PO SCH (08:13)
[2017-10-25] MEDS ORDERED: GLUCOPHAGE ONE ×2 (09:13→20:30)
[2017-10-25] MEDS: HYDROCHLOROTHIAZIDE 25 MG TAB PO SCH (09:39)
[2017-10-25] MEDS: GLUCOPHAGE PO SCH ×2 (09:39→22:55)
[2017-10-25] MEDS: CLARITIN PO SCH (09:39)
[2017-10-25] MEDS: VITAMIN C PO SCH (09:40)
[2017-10-25] MEDS: ROCEPHIN VIAL 1 GM 1 GM in NS 100 ML IV 100 ML IV SCH (09:40)
[2017-10-25] MEDS: ZESTRIL TAB 40 MG PO SCH (09:40)
[2017-10-25] MEDS: SYNTHROID 50 mcg TAB PO SCH (09:40)
[2017-10-25] MEDS: PROCARDIA XL PO SCH (09:40)
[2017-10-25] MEDS: VIBRAMYCIN 100 MG in NS 100 ML IV 100 ML IV SCH ×3 (09:40→22:58)
[2017-10-25] MEDS: MUCINEX EXPECTORANT PO SCH ×2 (09:40→21:00)
[2017-10-25] MEDS: PROTONIX TAB 40 MG PO SCH (09:40)
[2017-10-25] MEDS: ROBITUSSIN DM PO SCH ×4 (09:40→21:00)
[2017-10-25] MEDS: TUSSIONEX PENNKINETIC SUSP PO PRN (09:41)
[2017-10-25] MEDS: MILK OF MAGNESIA PO PRN (09:41)
[2017-10-25] MEDS: VITAMIN D3 PO SCH (11:29)
[2017-10-25] MEDS: NS 1000 ML 1,000 ML IV SCH ×2 (14:03→21:00)
[2017-10-25] MEDS: HumuLIN R SUBCUT PRN (16:34)
[2017-10-25] MEDS ORDERED: CHRONULAC PO PRN (18:23)
[2017-10-25] MEDS ORDERED: CHRONULAC PO SCH (19:00)
[2017-10-25] MEDS: SNACK - Diabetic Appropriate PO SCH (21:00)
[2017-10-25] MEDS: NORCO 5/325 MG TAB PO PRN (21:30)
[2017-10-25] MEDS ORDERED: VIBRAMYCIN PO ONE (22:02)
[2017-10-25] MEDS: ASPIRIN EC 81 MG PO SCH (22:55)
[2017-10-25] MEDS: SINGULAIR TAB 10 MG PO SCH (22:57)
[2017-10-26] MEDS: DUONEB 0.5 MG/3 MG NEB SCH ×6 (00:59→21:08)
[2017-10-26 06:20] LABS: BASOPHILS % (AUTO) 0.1 % (0.2-1.0); EOSINOPHILS # (AUTO) 0.1 x10^3/uL (0.0-0.2); EOSINOPHILS % (AUTO) 0.6 % (0.9-2.9); HEMATOCRIT 30.8 % (36.0-47.0); HEMOGLOBIN 10.6 g/dL (12.0-16.0); LYMPHOCYTES # (AUTO) 1.8 X10^3/uL (1.3-2.9); LYMPHOCYTES % (AUTO) 10.7 % (21.0-51.0); MEAN CORPUSCULAR HEMOGLOBIN 29.6 pg (27.0-34.0); MEAN CORPUSCULAR HGB CONC 34.3 g/dL (33.0-35.0); MEAN CORPUSCULAR VOLUME 86.2 fL (80.0-100.0); MEAN PLATELET VOLUME 9.3 fL (7.4-11.0); MONOCYTES # (AUTO) 1.5 x10^3/uL (0.3-0.8); MONOCYTES % (AUTO) 8.9 % (0.0-13.0); NEUTROPHILS # (AUTO) 13.3 x10^3/uL (2.2-4.8); NEUTROPHILS % (AUTO) 79.7 % (42.0-75.0); PLATELET COUNT 320 X10^3/uL (150.0-450.0); RED BLOOD COUNT 3.57 X10^6/uL (3.5-5.4); RED CELL DISTRIBUTION WIDTH 13.1 % (11.6-16.5); WHITE BLOOD COUNT 16.7 X10^3/uL (3.6-10.0)
[2017-10-26 06:25] LABS: ALANINE AMINOTRANSFERASE 46 Units/L (12-78); ALBUMIN 2.8 g/dL (3.4-5.0); ALKALINE PHOSPHATASE 173 Units/L (46-116); ASPARTATE AMINO TRANSFERASE 32 Units/L (15-37); BLOOD UREA NITROGEN 8 mg/dL (7-18); CALCIUM 9.2 mg/dL (8.5-10.1); CARBON DIOXIDE 25.7 mmol/L (21-32); CHLORIDE 95 mmol/L (98-107); COR CA(FOR HYPOALB) 10.2 mg/dL (8.5-10.1); COR NA(FOR HYPERGLY) 132 mmol/L (136-145); CREATININE 0.84 mg/dL (0.55-1.02); SODIUM 131 mmol/L (136-145); TOTAL PROTEIN 7.1 g/dL (6.4-8.2); eGFR BLACK RACES > 60 (>60); eGFR NON BLACK RACES > 60 (>60)
[2017-10-26] MEDS ORDERED: NS 500 ML IV 500 ML IV ONE (09:02)
[2017-10-26] MEDS: PROCARDIA XL PO SCH (09:18)
[2017-10-26] MEDS: ZESTRIL TAB 40 MG PO SCH (09:19)
[2017-10-26] MEDS: MUCINEX EXPECTORANT PO SCH ×2 (09:19→21:59)
[2017-10-26] MEDS: CLARITIN PO SCH (09:19)
[2017-10-26] MEDS: HYDROCHLOROTHIAZIDE 25 MG TAB PO SCH (09:19)
[2017-10-26] MEDS: SYNTHROID 50 mcg TAB PO SCH (09:19)
[2017-10-26] MEDS: PROTONIX TAB 40 MG PO SCH (09:19)
[2017-10-26] MEDS: VITAMIN D3 PO SCH (09:19)
[2017-10-26] MEDS: ROCEPHIN VIAL 1 GM 1 GM in NS 100 ML IV 100 ML IV SCH (09:20)
[2017-10-26] MEDS: ROBITUSSIN DM PO SCH ×4 (09:20→22:00)
[2017-10-26] MEDS: NS 1000 ML 1,000 ML IV SCH ×2 (09:20→21:59)
[2017-10-26] MEDS ORDERED: NS 100 ML IV 100 ML IV ONE ×3 (10:16→21:14)
[2017-10-26] MEDS: VITAMIN C PO SCH (10:32)
[2017-10-26] MEDS: VIBRAMYCIN 100 MG in NS 100 ML IV 100 ML IV SCH ×2 (10:32→14:50)
[2017-10-26] MEDS: ZOSYN VIAL 3.375 GM IV SCH ×3 (10:33→21:59)
--- NOTE | 2017-10-26 11:22 | CT ---
HISTORY: Pneumonia and dyspnea. Study: CT chest with contrast Comparison: CT examination dated 10/23/2017. Technique: Multiple axial images of the chest were obtained from the thoracic inlet to the upper abdo men after the administration of IV contrast. Findings: The thoracic inlet is unremarkable. No thyroid lesions are seen. There is scattered aortic atheroscle rosis without evidence for an aneurysm or acute aortic pathology. No central pulmonary embolism is se en. The heart is normal in size without pericardial effusion. There is an abnormal right paratracheal lymph node on image number 17 of series 4 which measures 17 mm. There is also an abnormal right yesenia r lymph node on image number 23 of series 4 which measures 16 mm. These abnormal lymph nodes may be r eactive in nature. There is diffuse airspace disease seen throughout the RUL as well as scattered wit hin the right lower lobe where there is a small volume right basilar pleural effusion also observed. These right-sided findings have infectious appearance and probably reflect lobar pneumonia. However, follow-up to complete resolution recommended to exclude malignancy, especially in light of the right- sided mediastinal and hilar adenopathy. The left lung is relatively clear. Numerous cysts are seen th roughout the liver, in keeping with polycystic liver disease, unchanged from prior. No other upper ab dominal abnormalities or changes are appreciated. No acute fracture or destructive lytic bony lesion/ process is identified on this exam. 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 IMPRESSION: Abnormal right paratracheal lymph node on image number 17 of series 4 which measures 17 mm. Abnormal right hilar lymph node on image number 23 of series 4 which measures 16 mm. These abnormal lymph node s may be reactive in nature. Diffuse airspace disease seen throughout the RUL as well as scattered within the right lower lobe whe re there is a small volume right basilar pleural effusion also observed. These right-sided findings have infectious appearance and probably reflect lobar pneumonia. However, follow-up to complete resolution recommended to exclude malignancy, especially in light of the right- sided mediastinal and hilar adenopathy. No other acute cardiopulmonary abnormality is seen. Findings of polycystic liver disease. Reported By:
--- NOTE | 2017-10-26 13:47 | PCM.PROG ---
Progress Note - Progress Note for Day of Date: 10/26/17 - Subjective Subjective: The patient is a 67-year-old white female who was admitted on 10/23 with right upper lobe pneumonia. Patient has been receiving IV antibiotics as well as respiratory therapy. Patient's sputum specimen was negative. Patient has continued diffuse rhonchi and expiratory wheezes with diminished lung sounds to her right upper and middle lobes plan to add Smart Vest, Mucomyst, Zosyn 3.375 every 8 hours and repeat sputum specimen we encouraged hydration, pulmonary toileting and ambulation. - Past Medical Family Social History Past Med/Fam/Surg Hx: No changes since H&P Allergies: Allergies No Known Drug Allergies Allergy (Verified 10/22/17 22:26) - Review of Systems ROS: No change since H&P - Vital Signs and I&O's Vital Signs: Temperature 100 F Pulse Rate [Right Brachial] 87 Pulse Rate [Left Brachial] 80 Pulse Rate 94 Respiratory Rate 20 Blood Pressure [Left Arm] 131/63 Blood Pressure [Right Arm] 133/62 Blood Pressure 138/60 O2 Sat by Pulse Oximetry 96 Intake and Output: Intake & Output 10/24/17 10/25/17 10/26/17 10/27/17 11:59 11:59 11:59 11:59 Intake Total 5394 3528 2318 Balance 5394 3528 2318 - Physical Exam Oriented: Normal Eyes: Normal Ear: Normal Nose: Normal Throat: Normal Respiratory: Diminished, Wheezes, Rhonchi Cardiovascular: Normal : Normal Auscultation: Bowel Sounds: Decreased Tenderness: Normal Skin: Normal Musculoskeletal: Back:Lumbar Psychiatric: Anxiety Affect: Anxious Speech Pattern: Clear - Laboratory and Diagnostics Result Diagrams: 10/26/17 05:35 10/26/17 05:35 Labs: 10/23/17 01:55 Blood Blood Culture - Preliminary 10/23/17 01:47 Blood Blood Culture - Preliminary 10/23/17 02:15 Sputum - Expectorated Sputum Sputum Culture - Final 10/23/17 02:15 Sputum - Expectorated Sputum - Final 10/22/17 22:50 Throat Throat Culture - Final Laboratory WBC 16.7 X10^3/uL (3.6-10.0) H 10/26/17 05:35 RBC 3.57 X10^6/uL (3.5-5.4) 10/26/17 05:35 Hgb 10.6 g/dL (12.0-16.0) L 10/26/17 05:35 Hct 30.8 % (36.0-47.0) L 10/26/17 05:35 MCV 86.2 fL (80.0-100.0) 10/26/17 05:35 MCH 29.6 pg (27.0-34.0) 10/26/17 05:35 MCHC 34.3 g/dL (33.0-35.0) 10/26/17 05:35 RDW 13.1 % (11.6-16.5) 10/26/17 05:35 Plt Count 320 X10^3/uL (150.0-450.0) 10/26/17 05:35 Plt Count Comment Adequate (ADEQUATE) 10/24/17 05:22 MPV 9.3 fL (7.4-11.0) 10/26/17 05:35 Neut % 79.7 % (42.0-75.0) H 10/26/17 05:35 Lymph % 10.7 % (21.0-51.0) L 10/26/17 05:35 Bartholomew % 8.9 % (0.0-13.0) 10/26/17 05:35 Eos % 0.6 % (0.9-2.9) L 10/26/17 05:35 Baso % 0.1 % (0.2-1.0) L 10/26/17 05:35 Neut # 13.3 x10^3/uL (2.2-4.8) H 10/26/17 05:35 Lymph # 1.8 X10^3/uL (1.3-2.9) 10/26/17 05:35 Bartholomew # 1.5 x10^3/uL (0.3-0.8) H 10/26/17 05:35 Eos # 0.1 x10^3/uL (0.0-0.2) 10/26/17 05:35 Baso # 0.0 X10^3/uL (0.0-0.1) 10/26/17 05:35 Absolute Nucleated RBC 0.0 /100WBC 10/26/17 05:35 Total Counted 100 10/24/17 05:22 Neutrophils % (Manual) 73 % (39-76) 10/24/17 05:22 Band Neutrophils % 1 % (0-10) 10/24/17 05:22 Lymphocytes % (Manual) 25 % (13-43) 10/24/17 05:22 Monocytes % (Manual) 1 % (4-9) L 10/24/17 05:22 Plt Morphology Comment Normal (NORMAL) 10/24/17 05:22 RBC Morphology Normal (NORMAL) 10/24/17 05:22 Sodium 131 mmol/L (136-145) L 10/26/17 05:35 Corrected Sodium 132 mmol/L (136-145) L 10/26/17 05:35 Potassium 3.8 mmol/L (3.5-5.1) 10/26/17 05:35 Chloride 95 mmol/L (98-107) L 10/26/17 05:35 Carbon Dioxide 25.7 mmol/L (21-32) 10/26/17 05:35 BUN 8 mg/dL (7-18) 10/26/17 05:35 Creatinine 0.84 mg/dL (0.55-1.02) 10/26/17 05:35 Est GFR (MDRD) Af Amer > 60 (>60) 10/26/17 05:35 Est GFR (MDRD) Non-Af > 60 (>60) 10/26/17 05:35 Glucose 141 mg/dL (65-99) H 10/26/17 05:35 POC Glucose (mg/dL) 190 mg/dL (65-99) H 10/26/17 11:18 Lactic Acid 1.1 mmol/L (0.4-2.0) 10/23/17 01:55 Calcium 9.2 mg/dL (8.5-10.1) 10/26/17 05:35 Corrected Calcium 10.2 mg/dL (8.5-10.1) H 10/26/17 05:35 Total Bilirubin 0.90 mg/dL (0.2-1.0) 10/26/17 05:35 AST 32 Units/L (15-37) 10/26/17 05:35 ALT 46 Units/L (12-78) 10/26/17 05:35 Alkaline Phosphatase 173 Units/L (46-116) H 10/26/17 05:35 C-Reactive Protein 120.90 mg/L (0-3.0) H 10/22/17 23:55 Total Protein 7.1 g/dL (6.4-8.2) 10/26/17 05:35 Albumin 2.8 g/dL (3.4-5.0) L 10/26/17 05:35 Globulin 4.3 g/dL (2.5-4.5) 10/26/17 05:35 Albumin/Globulin Ratio 0.7 Ratio (1.1-2.1) L 10/26/17 05:35 Specimen Type Clean catch urine 10/22/17 22:50 Urine Color Yellow (YELLOW) 10/22/17 22:50 Urine Appearance Hazy (CLEAR) 10/22/17 22:50 Urine pH 6.5 (5.0 - 8.0) 10/22/17 22:50 Ur Specific [place] 1.010 (1.000-1.030) 10/22/17 22:50 Urine Protein 2+ (NEGATIVE) 10/22/17 22:50 Urine Glucose (UA) Negative (NEGATIVE) 10/22/17 22:50 Urine Ketones 1+ (NEGATIVE) 10/22/17 22:50 Urine Occult Blood 3+ (NEGATIVE) 10/22/17 22:50 Urine Nitrite Negative (NEGATIVE) 10/22/17 22:50 Urine Bilirubin Negative (NEGATIVE) 10/22/17 22:50 Urine Urobilinogen Normal (NORMAL) 10/22/17 22:50 Ur Leukocyte Esterase Negative (NEGATIVE) 10/22/17 22:50 Urinalysis Comment QNS 10/22/17 22:50 Influenza Type A (PCR) Negative (NEGATIVE) 10/22/17 22:50 Influenza Type B (PCR) Negative (NEGATIVE) 10/22/17 22:50 Streptococcus Screen Negative (NEGATIVE) 10/22/17 22:50 - Plan (1) Right upper lobe pneumonia Status: Acute Qualifiers: Pneumonia type: due to unspecified organism Qualified Code(s): J18.1 - Lobar pneumonia, unspecified organism Plan: resp therapy, iv abtx. blood and sputum cultures collected on admission, repeat sputum. supplemental o2, pulmonary toileting. resume home meds, hold metformin, ssi for blood sugar control. repeat am labs and chest xray (2) Constipation Status: Acute Qualifiers: Constipation type: slow transit constipation Qualified Code(s): K59.01 - Slow transit constipation (3) Diabetes Status: Chronic Plan: ssi (4) GERD (gastroesophageal reflux disease) Status: Chronic (5) HTN (hypertension) Status: Chronic Plan: resume home meds, monitor BP
[2017-10-26] MEDS: CHRONULAC PO SCH ×2 (14:08→21:59)
[2017-10-26] MEDS: MERREM VIAL 500 MG in NS 100 ML IV 100 ML IV SCH ×2 (15:40→21:53)
[2017-10-26] MEDS: SINGULAIR TAB 10 MG PO SCH (21:59)
[2017-10-26] MEDS: ASPIRIN EC 81 MG PO SCH (22:00)
[2017-10-26] MEDS: TUSSIONEX PENNKINETIC SUSP PO PRN (22:00)
[2017-10-26] MEDS: SNACK - Diabetic Appropriate PO SCH (22:01)
[2017-10-26] MEDS: NORCO 5/325 MG TAB PO PRN (22:01)
[2017-10-27] MEDS: DUONEB 0.5 MG/3 MG NEB SCH ×6 (01:38→20:51)
[2017-10-27] MEDS ORDERED: NS 100 ML IV 100 ML IV ONE (04:53)
[2017-10-27] MEDS: MERREM VIAL 500 MG in NS 100 ML IV 100 ML IV SCH (05:00)
[2017-10-27] MEDS: CHRONULAC PO SCH ×4 (06:10→21:12)
[2017-10-27] MEDS: ZOSYN VIAL 3.375 GM IV SCH (06:10)
[2017-10-27 06:17] LABS: BASOPHILS # (AUTO) 0.1 X10^3/uL (0.0-0.1); BASOPHILS % (AUTO) 0.3 % (0.2-1.0); EOSINOPHILS # (AUTO) 0.1 x10^3/uL (0.0-0.2); EOSINOPHILS % (AUTO) 0.7 % (0.9-2.9); HEMATOCRIT 29.7 % (36.0-47.0); HEMOGLOBIN 10.2 g/dL (12.0-16.0); LYMPHOCYTES # (AUTO) 1.8 X10^3/uL (1.3-2.9); LYMPHOCYTES % (AUTO) 9.6 % (21.0-51.0); MEAN CORPUSCULAR HEMOGLOBIN 29.5 pg (27.0-34.0); MEAN CORPUSCULAR HGB CONC 34.3 g/dL (33.0-35.0); MEAN CORPUSCULAR VOLUME 86.1 fL (80.0-100.0); MEAN PLATELET VOLUME 8.9 fL (7.4-11.0); MONOCYTES # (AUTO) 1.7 x10^3/uL (0.3-0.8); MONOCYTES % (AUTO) 8.7 % (0.0-13.0); NEUTROPHILS # (AUTO) 15.4 x10^3/uL (2.2-4.8); NEUTROPHILS % (AUTO) 80.7 % (42.0-75.0); PLATELET COUNT 340 X10^3/uL (150.0-450.0); RED BLOOD COUNT 3.45 X10^6/uL (3.5-5.4); RED CELL DISTRIBUTION WIDTH 13.3 % (11.6-16.5)
[2017-10-27 06:38] LABS: ALANINE AMINOTRANSFERASE 57 Units/L (12-78); ALBUMIN 2.4 g/dL (3.4-5.0); ALKALINE PHOSPHATASE 240 Units/L (46-116); ASPARTATE AMINO TRANSFERASE 33 Units/L (15-37); BLOOD UREA NITROGEN 8 mg/dL (7-18); CARBON DIOXIDE 27.3 mmol/L (21-32); CHLORIDE 100 mmol/L (98-107); COR CA(FOR HYPOALB) 10.3 mg/dL (8.5-10.1); COR NA(FOR HYPERGLY) 137 mmol/L (136-145); CREATININE 0.84 mg/dL (0.55-1.02); SODIUM 135 mmol/L (136-145); TOTAL PROTEIN 6.7 g/dL (6.4-8.2); eGFR BLACK RACES > 60 (>60); eGFR NON BLACK RACES > 60 (>60)
[2017-10-27] MEDS: HYDROCHLOROTHIAZIDE 25 MG TAB PO SCH (08:04)
[2017-10-27] MEDS: MUCINEX EXPECTORANT PO SCH ×2 (08:04→21:12)
[2017-10-27] MEDS: CLARITIN PO SCH (08:04)
[2017-10-27] MEDS: VITAMIN D3 PO SCH (08:05)
[2017-10-27] MEDS: ROBITUSSIN DM PO SCH ×4 (08:05→21:20)
[2017-10-27] MEDS: VITAMIN C PO SCH (08:05)
[2017-10-27] MEDS: PROTONIX TAB 40 MG PO SCH (08:05)
[2017-10-27] MEDS: SYNTHROID 50 mcg TAB PO SCH (08:05)
[2017-10-27] MEDS: ZESTRIL TAB 40 MG PO SCH (08:05)
[2017-10-27] MEDS: PROCARDIA XL PO SCH (08:05)
[2017-10-27] MEDS: TUSSIONEX PENNKINETIC SUSP PO PRN ×2 (08:06→21:22)
[2017-10-27] MEDS: NORCO 5/325 MG TAB PO PRN ×2 (08:06→21:21)
[2017-10-27] MEDS: PULMICORT NEB TX 0.5 MG NEB SCH ×2 (08:52→20:51)
[2017-10-27] MEDS ORDERED: NS 250 ML IV 250 ML IV ONE (09:11)
[2017-10-27] MEDS ORDERED: TORADOL 15 MG VIAL IVP PRN (09:18)
[2017-10-27] MEDS: NS 1000 ML 1,000 ML IV SCH ×2 (09:26→21:12)
[2017-10-27] MEDS ORDERED: MORPHINE SULFATE INJ 4 MG IVP PRN (13:39)
[2017-10-27] MEDS: MERREM VIAL 500 MG in NS 50 ML IV 50 ML IV SCH ×2 (13:42→21:22)
[2017-10-27] MEDS: ZOSYN VIAL 3.375 GM 3.375 GM in NS 50 ML IV 50 ML IV SCH ×2 (14:00→21:20)
--- NOTE | 2017-10-27 14:07 | PCM.PROG ---
Progress Note - Progress Note for Day of Date: 10/27/17 - Subjective Subjective: The patient is a 67-year-old white female who was admitted on 10/23 with right upper lobe pneumonia. Patient has been receiving IV antibiotics as well as respiratory therapy. Patient's sputum specimen was negative. Patient has continued diffuse rhonchi and expiratory wheezes with diminished lung sounds to her right upper and middle lobes. Continue resp therapy, Mucomyst, Zosyn 3.375 every 8 hours and repeat sputum specimen we encouraged hydration, pulmonary toileting and ambulation. - Past Medical Family Social History Past Med/Fam/Surg Hx: No changes since H&P Allergies: Allergies No Known Drug Allergies Allergy (Verified 10/22/17 22:26) - Review of Systems ROS: No change since H&P - Vital Signs and I&O's Vital Signs: Temperature 97.4 F Pulse Rate [Right Brachial] 80 Pulse Rate [Left Brachial] 80 Pulse Rate 91 Respiratory Rate 20 Blood Pressure [Left Arm] 137/66 Blood Pressure [Right Arm] 133/62 Blood Pressure 138/60 O2 Sat by Pulse Oximetry 92 Intake and Output: Intake & Output 10/25/17 10/26/17 10/27/17 10/28/17 11:59 11:59 11:59 11:59 Intake Total 3528 2318 4184 Balance 3528 2318 4184 - Physical Exam Oriented: Normal Eyes: Normal Ear: Normal Nose: Normal Throat: Normal Respiratory: Diminished, Wheezes, Rhonchi Cardiovascular: Normal : Normal Auscultation: Bowel Sounds: Decreased Tenderness: Normal Skin: Normal Musculoskeletal: Back:Lumbar Psychiatric: Anxiety Affect: Anxious Speech Pattern: Clear - Laboratory and Diagnostics Result Diagrams: 10/27/17 05:25 10/27/17 05:25 Labs: 10/23/17 01:55 Blood Blood Culture - Preliminary 10/23/17 01:47 Blood Blood Culture - Preliminary 10/23/17 02:15 Sputum - Expectorated Sputum Sputum Culture - Final 10/23/17 02:15 Sputum - Expectorated Sputum - Final 10/22/17 22:50 Throat Throat Culture - Final Laboratory WBC 19.0 X10^3/uL (3.6-10.0) H 10/27/17 05:25 RBC 3.45 X10^6/uL (3.5-5.4) L 10/27/17 05:25 Hgb 10.2 g/dL (12.0-16.0) L 10/27/17 05:25 Hct 29.7 % (36.0-47.0) L 10/27/17 05:25 MCV 86.1 fL (80.0-100.0) 10/27/17 05:25 MCH 29.5 pg (27.0-34.0) 10/27/17 05:25 MCHC 34.3 g/dL (33.0-35.0) 10/27/17 05:25 RDW 13.3 % (11.6-16.5) 10/27/17 05:25 Plt Count 340 X10^3/uL (150.0-450.0) 10/27/17 05:25 Plt Count Comment Adequate (ADEQUATE) 10/24/17 05:22 MPV 8.9 fL (7.4-11.0) 10/27/17 05:25 Neut % 80.7 % (42.0-75.0) H 10/27/17 05:25 Lymph % 9.6 % (21.0-51.0) L 10/27/17 05:25 [place] % 8.7 % (0.0-13.0) 10/27/17 05:25 Eos % 0.7 % (0.9-2.9) L 10/27/17 05:25 Baso % 0.3 % (0.2-1.0) 10/27/17 05:25 Neut # 15.4 x10^3/uL (2.2-4.8) H 10/27/17 05:25 Lymph # 1.8 X10^3/uL (1.3-2.9) 10/27/17 05:25 [place] # 1.7 x10^3/uL (0.3-0.8) H 10/27/17 05:25 Eos # 0.1 x10^3/uL (0.0-0.2) 10/27/17 05:25 Baso # 0.1 X10^3/uL (0.0-0.1) 10/27/17 05:25 Absolute Nucleated RBC 0.0 /100WBC 10/27/17 05:25 Total Counted 100 10/24/17 05:22 Neutrophils % (Manual) 73 % (39-76) 10/24/17 05:22 Band Neutrophils % 1 % (0-10) 10/24/17 05:22 Lymphocytes % (Manual) 25 % (13-43) 10/24/17 05:22 Monocytes % (Manual) 1 % (4-9) L 10/24/17 05:22 Plt Morphology Comment Normal (NORMAL) 10/24/17 05:22 RBC Morphology Normal (NORMAL) 10/24/17 05:22 Sodium 135 mmol/L (136-145) L 10/27/17 05:25 Corrected Sodium 137 mmol/L (136-145) 10/27/17 05:25 Potassium 3.4 mmol/L (3.5-5.1) L 10/27/17 05:25 Chloride 100 mmol/L (98-107) 10/27/17 05:25 Carbon Dioxide 27.3 mmol/L (21-32) 10/27/17 05:25 BUN 8 mg/dL (7-18) 10/27/17 05:25 Creatinine 0.84 mg/dL (0.55-1.02) 10/27/17 05:25 Est GFR (MDRD) Af Amer > 60 (>60) 10/27/17 05:25 Est GFR (MDRD) Non-Af > 60 (>60) 10/27/17 05:25 Glucose 170 mg/dL (65-99) H 10/27/17 05:25 POC Glucose (mg/dL) 170 mg/dL (65-99) H 10/27/17 11:30 Lactic Acid 1.1 mmol/L (0.4-2.0) 10/23/17 01:55 Calcium 9.0 mg/dL (8.5-10.1) 10/27/17 05:25 Corrected Calcium 10.3 mg/dL (8.5-10.1) H 10/27/17 05:25 Total Bilirubin 0.70 mg/dL (0.2-1.0) 10/27/17 05:25 AST 33 Units/L (15-37) 10/27/17 05:25 ALT 57 Units/L (12-78) 10/27/17 05:25 Alkaline Phosphatase 240 Units/L (46-116) H 10/27/17 05:25 C-Reactive Protein 120.90 mg/L (0-3.0) H 10/22/17 23:55 Total Protein 6.7 g/dL (6.4-8.2) 10/27/17 05:25 Albumin 2.4 g/dL (3.4-5.0) L 10/27/17 05:25 Globulin 4.3 g/dL (2.5-4.5) 10/27/17 05:25 Albumin/Globulin Ratio 0.6 Ratio (1.1-2.1) L 10/27/17 05:25 Specimen Type Clean catch urine 10/22/17 22:50 Urine Color Yellow (YELLOW) 10/22/17 22:50 Urine Appearance Hazy (CLEAR) 10/22/17 22:50 Urine pH 6.5 (5.0 - 8.0) 10/22/17 22:50 Ur Specific [place] 1.010 (1.000-1.030) 10/22/17 22:50 Urine Protein 2+ (NEGATIVE) 10/22/17 22:50 Urine Glucose (UA) Negative (NEGATIVE) 10/22/17 22:50 Urine Ketones 1+ (NEGATIVE) 10/22/17 22:50 Urine Occult Blood 3+ (NEGATIVE) 10/22/17 22:50 Urine Nitrite Negative (NEGATIVE) 10/22/17 22:50 Urine Bilirubin Negative (NEGATIVE) 10/22/17 22:50 Urine Urobilinogen Normal (NORMAL) 10/22/17 22:50 Ur Leukocyte Esterase Negative (NEGATIVE) 10/22/17 22:50 Urinalysis Comment QNS 10/22/17 22:50 Influenza Type A (PCR) Negative (NEGATIVE) 10/22/17 22:50 Influenza Type B (PCR) Negative (NEGATIVE) 10/22/17 22:50 Streptococcus Screen Negative (NEGATIVE) 10/22/17 22:50 - Plan (1) Right upper lobe pneumonia Status: Acute Qualifiers: Pneumonia type: due to unspecified organism Qualified Code(s): J18.1 - Lobar pneumonia, unspecified organism Plan: resp therapy, iv abtx. blood and sputum cultures collected on admission, repeat sputum. supplemental o2, pulmonary toileting. resume home meds, hold metformin, ssi for blood sugar control. repeat am labs and chest xray (2) Constipation Status: Acute Qualifiers: Constipation type: slow transit constipation Qualified Code(s): K59.01 - Slow transit constipation (3) Diabetes Status: Chronic Plan: ssi (4) GERD (gastroesophageal reflux disease) Status: Chronic (5) HTN (hypertension) Status: Chronic Plan: resume home meds, monitor BP
[2017-10-27] MEDS: SNACK - Diabetic Appropriate PO SCH (21:11)
[2017-10-27] MEDS: ASPIRIN EC 81 MG PO SCH (21:12)
[2017-10-27] MEDS: SINGULAIR TAB 10 MG PO SCH (21:20)
[2017-10-28] MEDS: DUONEB 0.5 MG/3 MG NEB SCH ×6 (00:25→20:41)
[2017-10-28] MEDS: CHRONULAC PO SCH ×3 (03:17→14:34)
[2017-10-28] MEDS: ZOSYN VIAL 3.375 GM 3.375 GM in NS 50 ML IV 50 ML IV SCH ×4 (03:17→21:00)
[2017-10-28] MEDS: MERREM VIAL 500 MG in NS 50 ML IV 50 ML IV SCH ×3 (05:23→22:00)
--- NOTE | 2017-10-28 06:39 | RAD ---
Examination: Portable AP chest History: Follow-up Comparison 10/25/2017 Findings: Continued normal heart size. The left lung is essentially clear. There is again noted a dif fuse airspace process in the right upper lobe. The process is less well defined than before. This may indicate interval improvement. No new abnormality is noted. Impression: Persistent right upper lobe pneumonia with suspect mild improvement. No new abnormality d emonstrated. Reported By:
[2017-10-28 07:01] LABS: ALANINE AMINOTRANSFERASE 53 Units/L (12-78); ALBUMIN 2.4 g/dL (3.4-5.0); ALKALINE PHOSPHATASE 257 Units/L (46-116); ASPARTATE AMINO TRANSFERASE 26 Units/L (15-37); BLOOD UREA NITROGEN 8 mg/dL (7-18); CALCIUM 9.3 mg/dL (8.5-10.1); CARBON DIOXIDE 24.2 mmol/L (21-32); CHLORIDE 100 mmol/L (98-107); COR CA(FOR HYPOALB) 10.6 mg/dL (8.5-10.1); COR NA(FOR HYPERGLY) 137 mmol/L (136-145); CREATININE 0.88 mg/dL (0.55-1.02); SODIUM 135 mmol/L (136-145); TOTAL PROTEIN 6.7 g/dL (6.4-8.2); eGFR BLACK RACES > 60 (>60); eGFR NON BLACK RACES > 60 (>60)
[2017-10-28 07:24] LABS: BASOPHILS # (AUTO) 0.1 X10^3/uL (0.0-0.1); BASOPHILS % (AUTO) 0.4 % (0.2-1.0); EOSINOPHILS # (AUTO) 0.3 x10^3/uL (0.0-0.2); EOSINOPHILS % (AUTO) 1.7 % (0.9-2.9); HEMATOCRIT 28.8 % (36.0-47.0); HEMOGLOBIN 9.7 g/dL (12.0-16.0); LYMPHOCYTES # (AUTO) 1.7 X10^3/uL (1.3-2.9); LYMPHOCYTES % (AUTO) 10.5 % (21.0-51.0); MEAN CORPUSCULAR HGB CONC 33.6 g/dL (33.0-35.0); MEAN CORPUSCULAR VOLUME 86.3 fL (80.0-100.0); MONOCYTES # (AUTO) 1.3 x10^3/uL (0.3-0.8); MONOCYTES % (AUTO) 8.4 % (0.0-13.0); NEUTROPHILS # (AUTO) 12.5 x10^3/uL (2.2-4.8); PLATELET COUNT 391 X10^3/uL (150.0-450.0); RED BLOOD COUNT 3.34 X10^6/uL (3.5-5.4); RED CELL DISTRIBUTION WIDTH 13.3 % (11.6-16.5); WHITE BLOOD COUNT 15.8 X10^3/uL (3.6-10.0)
[2017-10-28] MEDS: VITAMIN C PO SCH (08:50)
[2017-10-28] MEDS: ZESTRIL TAB 40 MG PO SCH (08:50)
[2017-10-28] MEDS: VITAMIN D3 PO SCH (08:50)
[2017-10-28] MEDS: SYNTHROID 50 mcg TAB PO SCH (08:50)
[2017-10-28] MEDS: CLARITIN PO SCH (08:50)
[2017-10-28] MEDS: MUCINEX EXPECTORANT PO SCH ×2 (08:50→20:30)
[2017-10-28] MEDS: PROCARDIA XL PO SCH (08:50)
[2017-10-28] MEDS: HYDROCHLOROTHIAZIDE 25 MG TAB PO SCH (08:50)
[2017-10-28] MEDS: PROTONIX TAB 40 MG PO SCH (08:50)
[2017-10-28] MEDS: ROBITUSSIN DM PO SCH ×4 (08:51→21:00)
[2017-10-28] MEDS: NORCO 5/325 MG TAB PO PRN ×3 (09:14→18:35)
[2017-10-28] MEDS: NS 1000 ML 1,000 ML IV SCH ×2 (09:24→21:00)
[2017-10-28] MEDS: PULMICORT NEB TX 0.5 MG NEB SCH ×2 (09:25→20:41)
[2017-10-28] MEDS ORDERED: MAGNESIUM SULFATE 1 GM/100 mL PREMIX 1 GM/100 ML BAG IV PRN (09:26)
--- NOTE | 2017-10-28 13:47 | PCM.PROG ---
Progress Note - Progress Note for Day of Date: 10/28/17 - Subjective Subjective: The patient is a 67-year-old white female who was admitted on 10/23 with right upper lobe pneumonia. Patient has been receiving IV antibiotics as well as respiratory therapy. Patient's sputum specimen was negative. Patient has continued diffuse exp wheezes and presistant cough. Continue resp therapy, Mucomyst, Zosyn 3.375 every 8 hours and repeat sputum specimen we encouraged hydration, pulmonary toileting and ambulation. - Past Medical Family Social History Past Med/Fam/Surg Hx: No changes since H&P Allergies: Allergies No Known Drug Allergies Allergy (Verified 10/22/17 22:26) - Review of Systems ROS: No change since H&P - Vital Signs and I&O's Vital Signs: Temperature 98.2 F Pulse Rate [Right Brachial] 71 Pulse Rate [Left Brachial] 79 Pulse Rate 66 Respiratory Rate 20 Blood Pressure [Left Arm] 145/65 Blood Pressure [Right Arm] 133/62 Blood Pressure 138/60 O2 Sat by Pulse Oximetry 91 Intake and Output: Intake & Output 10/26/17 10/27/17 10/28/17 10/29/17 11:59 11:59 11:59 11:59 Intake Total 2318 4184 2049 Balance 2318 418 2049 - Physical Exam Oriented: Normal Eyes: Normal Ear: Normal Nose: Normal Throat: Normal Respiratory: Diminished, Wheezes, Rhonchi Cardiovascular: Normal : Normal Auscultation: Bowel Sounds: Decreased Tenderness: Normal Skin: Normal Musculoskeletal: Back:Lumbar Psychiatric: Anxiety Affect: Anxious Speech Pattern: Clear - Laboratory and Diagnostics Result Diagrams: 10/28/17 07:15 10/28/17 05:10 Labs: 10/23/17 01:55 Blood Blood Culture - Final 10/23/17 01:47 Blood Blood Culture - Final 10/23/17 02:15 Sputum - Expectorated Sputum Sputum Culture - Final 10/23/17 02:15 Sputum - Expectorated Sputum - Final 10/22/17 22:50 Throat Throat Culture - Final Laboratory WBC 15.8 X10^3/uL (3.6-10.0) H 10/28/17 07:15 RBC 3.34 X10^6/uL (3.5-5.4) L 10/28/17 07:15 Hgb 9.7 g/dL (12.0-16.0) L 10/28/17 07:15 Hct 28.8 % (36.0-47.0) L 10/28/17 07:15 MCV 86.3 fL (80.0-100.0) 10/28/17 07:15 MCH 29.0 pg (27.0-34.0) 10/28/17 07:15 MCHC 33.6 g/dL (33.0-35.0) 10/28/17 07:15 RDW 13.3 % (11.6-16.5) 10/28/17 07:15 Plt Count 391 X10^3/uL (150.0-450.0) 10/28/17 07:15 Plt Count Comment Adequate (ADEQUATE) 10/24/17 05:22 MPV 8.0 fL (7.4-11.0) 10/28/17 07:15 Neut % 79.0 % (42.0-75.0) H 10/28/17 07:15 Lymph % 10.5 % (21.0-51.0) L 10/28/17 07:15 [place] % 8.4 % (0.0-13.0) 10/28/17 07:15 Eos % 1.7 % (0.9-2.9) 10/28/17 07:15 Baso % 0.4 % (0.2-1.0) 10/28/17 07:15 Neut # 12.5 x10^3/uL (2.2-4.8) H 10/28/17 07:15 Lymph # 1.7 X10^3/uL (1.3-2.9) 10/28/17 07:15 [place] # 1.3 x10^3/uL (0.3-0.8) H 10/28/17 07:15 Eos # 0.3 x10^3/uL (0.0-0.2) H 10/28/17 07:15 Baso # 0.1 X10^3/uL (0.0-0.1) 10/28/17 07:15 Absolute Nucleated RBC 0.0 /100WBC 10/28/17 07:15 Total Counted 100 10/24/17 05:22 Neutrophils % (Manual) 73 % (39-76) 10/24/17 05:22 Band Neutrophils % 1 % (0-10) 10/24/17 05:22 Lymphocytes % (Manual) 25 % (13-43) 10/24/17 05:22 Monocytes % (Manual) 1 % (4-9) L 10/24/17 05:22 Plt Morphology Comment Normal (NORMAL) 10/24/17 05:22 RBC Morphology Normal (NORMAL) 10/24/17 05:22 Sodium 135 mmol/L (136-145) L 10/28/17 05:10 Corrected Sodium 137 mmol/L (136-145) 10/28/17 05:10 Potassium 3.3 mmol/L (3.5-5.1) L 10/28/17 05:10 Chloride 100 mmol/L (98-107) 10/28/17 05:10 Carbon Dioxide 24.2 mmol/L (21-32) 10/28/17 05:10 BUN 8 mg/dL (7-18) 10/28/17 05:10 Creatinine 0.88 mg/dL (0.55-1.02) 10/28/17 05:10 Est GFR (MDRD) Af Amer > 60 (>60) 10/28/17 05:10 Est GFR (MDRD) Non-Af > 60 (>60) 10/28/17 05:10 Glucose 181 mg/dL (65-99) H 10/28/17 05:10 POC Glucose (mg/dL) 181 mg/dL (65-99) H 10/28/17 11:01 Lactic Acid 1.1 mmol/L (0.4-2.0) 10/23/17 01:55 Calcium 9.3 mg/dL (8.5-10.1) 10/28/17 05:10 Corrected Calcium 10.6 mg/dL (8.5-10.1) H 10/28/17 05:10 Magnesium 1.9 mg/dL (1.7-2.9) 10/28/17 05:10 Total Bilirubin 0.60 mg/dL (0.2-1.0) 10/28/17 05:10 AST 26 Units/L (15-37) 10/28/17 05:10 ALT 53 Units/L (12-78) 10/28/17 05:10 Alkaline Phosphatase 257 Units/L (46-116) H 10/28/17 05:10 C-Reactive Protein 120.90 mg/L (0-3.0) H 10/22/17 23:55 Total Protein 6.7 g/dL (6.4-8.2) 10/28/17 05:10 Albumin 2.4 g/dL (3.4-5.0) L 10/28/17 05:10 Globulin 4.3 g/dL (2.5-4.5) 10/28/17 05:10 Albumin/Globulin Ratio 0.6 Ratio (1.1-2.1) L 10/28/17 05:10 Specimen Type Clean catch urine 10/22/17 22:50 Urine Color Yellow (YELLOW) 10/22/17 22:50 Urine Appearance Hazy (CLEAR) 10/22/17 22:50 Urine pH 6.5 (5.0 - 8.0) 10/22/17 22:50 Ur Specific [place] 1.010 (1.000-1.030) 10/22/17 22:50 Urine Protein 2+ (NEGATIVE) 10/22/17 22:50 Urine Glucose (UA) Negative (NEGATIVE) 10/22/17 22:50 Urine Ketones 1+ (NEGATIVE) 10/22/17 22:50 Urine Occult Blood 3+ (NEGATIVE) 10/22/17 22:50 Urine Nitrite Negative (NEGATIVE) 10/22/17 22:50 Urine Bilirubin Negative (NEGATIVE) 10/22/17 22:50 Urine Urobilinogen Normal (NORMAL) 10/22/17 22:50 Ur Leukocyte Esterase Negative (NEGATIVE) 10/22/17 22:50 Urinalysis Comment QNS 10/22/17 22:50 Influenza Type A (PCR) Negative (NEGATIVE) 10/22/17 22:50 Influenza Type B (PCR) Negative (NEGATIVE) 10/22/17 22:50 Streptococcus Screen Negative (NEGATIVE) 10/22/17 22:50 - Plan (1) Right upper lobe pneumonia Status: Acute Qualifiers: Pneumonia type: due to unspecified organism Qualified Code(s): J18.1 - Lobar pneumonia, unspecified organism Plan: resp therapy, iv abtx. blood and sputum cultures collected on admission, repeat sputum. supplemental o2, pulmonary toileting. resume home meds, hold metformin, ssi for blood sugar control. repeat am labs and chest xray (2) Constipation Status: Acute Qualifiers: Constipation type: slow transit constipation Qualified Code(s): K59.01 - Slow transit constipation (3) Diabetes Status: Chronic Plan: ssi (4) GERD (gastroesophageal reflux disease) Status: Chronic (5) HTN (hypertension) Status: Chronic Plan: resume home meds, monitor BP
[2017-10-28] MEDS ORDERED: SALINE 3% 15 ML NEB TX ONE (17:00)
[2017-10-28] MEDS ORDERED: SALINE 3% 15 ML NEB TX NEB ONE (17:05)
[2017-10-28] MEDS: HumuLIN R SUBCUT PRN (18:20)
[2017-10-28] MEDS: ASPIRIN EC 81 MG PO SCH (20:30)
[2017-10-28] MEDS: SINGULAIR TAB 10 MG PO SCH (21:00)
[2017-10-28] MEDS: SNACK - Diabetic Appropriate PO SCH (21:00)
[2017-10-29] MEDS: CHRONULAC PO SCH ×6 (00:04→20:54)
[2017-10-29] MEDS: DUONEB 0.5 MG/3 MG NEB SCH ×6 (00:47→21:18)
[2017-10-29] MEDS: ZOSYN VIAL 3.375 GM 3.375 GM in NS 50 ML IV 50 ML IV SCH ×4 (03:25→20:56)
[2017-10-29] MEDS: MERREM VIAL 500 MG in NS 50 ML IV 50 ML IV SCH ×3 (05:37→22:00)
[2017-10-29 05:56] LABS: BASOPHILS % (AUTO) 0.4 % (0.2-1.0); EOSINOPHILS # (AUTO) 0.3 x10^3/uL (0.0-0.2); EOSINOPHILS % (AUTO) 2.4 % (0.9-2.9); HEMATOCRIT 28.8 % (36.0-47.0); HEMOGLOBIN 9.8 g/dL (12.0-16.0); LYMPHOCYTES # (AUTO) 1.8 X10^3/uL (1.3-2.9); LYMPHOCYTES % (AUTO) 16.2 % (21.0-51.0); MEAN CORPUSCULAR HEMOGLOBIN 29.5 pg (27.0-34.0); MEAN CORPUSCULAR HGB CONC 34.2 g/dL (33.0-35.0); MEAN CORPUSCULAR VOLUME 86.3 fL (80.0-100.0); MONOCYTES % (AUTO) 9.1 % (0.0-13.0); NEUTROPHILS # (AUTO) 7.9 x10^3/uL (2.2-4.8); NEUTROPHILS % (AUTO) 71.9 % (42.0-75.0); PLATELET COUNT 437 X10^3/uL (150.0-450.0); RED BLOOD COUNT 3.33 X10^6/uL (3.5-5.4); RED CELL DISTRIBUTION WIDTH 13.2 % (11.6-16.5)
[2017-10-29 06:07] LABS: ALANINE AMINOTRANSFERASE 47 Units/L (12-78); ALBUMIN 2.3 g/dL (3.4-5.0); ALKALINE PHOSPHATASE 254 Units/L (46-116); ASPARTATE AMINO TRANSFERASE 21 Units/L (15-37); BLOOD UREA NITROGEN 9 mg/dL (7-18); CARBON DIOXIDE 25.6 mmol/L (21-32); CHLORIDE 102 mmol/L (98-107); COR CA(FOR HYPOALB) 10.4 mg/dL (8.5-10.1); COR NA(FOR HYPERGLY) 138 mmol/L (136-145); SODIUM 137 mmol/L (136-145); TOTAL PROTEIN 6.5 g/dL (6.4-8.2); eGFR BLACK RACES > 60 (>60); eGFR NON BLACK RACES > 60 (>60)
[2017-10-29] MEDS: VITAMIN D3 PO SCH (09:12)
[2017-10-29] MEDS: PROCARDIA XL PO SCH (09:12)
[2017-10-29] MEDS: MUCINEX EXPECTORANT PO SCH ×2 (09:12→20:55)
[2017-10-29] MEDS: ZESTRIL TAB 40 MG PO SCH (09:12)
[2017-10-29] MEDS: ROBITUSSIN DM PO SCH ×4 (09:12→20:55)
[2017-10-29] MEDS: HYDROCHLOROTHIAZIDE 25 MG TAB PO SCH (09:12)
[2017-10-29] MEDS: PROTONIX TAB 40 MG PO SCH (09:12)
[2017-10-29] MEDS: SYNTHROID 50 mcg TAB PO SCH (09:12)
[2017-10-29] MEDS: K-LYTE EFFERVESCENT PO PRN (09:12)
[2017-10-29] MEDS: CLARITIN PO SCH (09:12)
[2017-10-29] MEDS: VITAMIN C PO SCH (09:12)
[2017-10-29] MEDS: PULMICORT NEB TX 0.5 MG NEB SCH ×2 (09:17→21:18)
--- NOTE | 2017-10-29 18:54 | PCM.PROG ---
Progress Note - Progress Note for Day of Date: 10/29/17 - Subjective Subjective: The patient is a 67-year-old white female who was admitted on 10/23 with right upper lobe pneumonia. Patient has been receiving IV antibiotics as well as respiratory therapy. Patient's sputum specimen was negative. Patient has continued right lower exp wheezes and presistant cough improving. pt states she feels some improvement. Continue resp therapy, Mucomyst, Zosyn 3.375 every 8 hours and repeat sputum specimen we encouraged hydration, pulmonary toileting and ambulation. - Past Medical Family Social History Past Med/Fam/Surg Hx: No changes since H&P Allergies: Allergies No Known Drug Allergies Allergy (Verified 10/22/17 22:26) - Review of Systems ROS: No change since H&P - Vital Signs and I&O's Vital Signs: Temperature 97.7 F Pulse Rate [Right Brachial] 82 Pulse Rate [Left Brachial] 72 Pulse Rate 95 Respiratory Rate 18 Blood Pressure [Left Arm] 155/67 Blood Pressure [Right Arm] 137/68 Blood Pressure 138/60 O2 Sat by Pulse Oximetry 98 Intake and Output: Intake & Output 10/27/17 10/28/17 10/29/17 10/30/17 11:59 11:59 11:59 11:59 Intake Total 4184 2049 3280 720 Balance 4184 2049 3280 720 - Physical Exam Oriented: Normal Eyes: Normal Ear: Normal Nose: Normal Throat: Normal Respiratory: Diminished, Wheezes, Rhonchi Cardiovascular: Normal : Normal Auscultation: Bowel Sounds: Decreased Tenderness: Normal Skin: Normal Musculoskeletal: Back:Lumbar Psychiatric: Anxiety Affect: Anxious Speech Pattern: Clear - Laboratory and Diagnostics Result Diagrams: 10/29/17 05:35 10/29/17 12:50 Labs: 10/29/17 01:08 Sputum - Expectorated Sputum - Final 10/23/17 01:55 Blood Blood Culture - Final 10/23/17 01:47 Blood Blood Culture - Final 10/23/17 02:15 Sputum - Expectorated Sputum Sputum Culture - Final 10/23/17 02:15 Sputum - Expectorated Sputum - Final 10/22/17 22:50 Throat Throat Culture - Final Laboratory WBC 11.0 X10^3/uL (3.6-10.0) H 10/29/17 05:35 RBC 3.33 X10^6/uL (3.5-5.4) L 10/29/17 05:35 Hgb 9.8 g/dL (12.0-16.0) L 10/29/17 05:35 Hct 28.8 % (36.0-47.0) L 10/29/17 05:35 MCV 86.3 fL (80.0-100.0) 10/29/17 05:35 MCH 29.5 pg (27.0-34.0) 10/29/17 05:35 MCHC 34.2 g/dL (33.0-35.0) 10/29/17 05:35 RDW 13.2 % (11.6-16.5) 10/29/17 05:35 Plt Count 437 X10^3/uL (150.0-450.0) 10/29/17 05:35 Plt Count Comment Adequate (ADEQUATE) 10/24/17 05:22 MPV 8.0 fL (7.4-11.0) 10/29/17 05:35 Neut % 71.9 % (42.0-75.0) 10/29/17 05:35 Lymph % 16.2 % (21.0-51.0) L 10/29/17 05:35 [place] % 9.1 % (0.0-13.0) 10/29/17 05:35 Eos % 2.4 % (0.9-2.9) 10/29/17 05:35 Baso % 0.4 % (0.2-1.0) 10/29/17 05:35 Neut # 7.9 x10^3/uL (2.2-4.8) H 10/29/17 05:35 Lymph # 1.8 X10^3/uL (1.3-2.9) 10/29/17 05:35 [place] # 1.0 x10^3/uL (0.3-0.8) H 10/29/17 05:35 Eos # 0.3 x10^3/uL (0.0-0.2) H 10/29/17 05:35 Baso # 0.0 X10^3/uL (0.0-0.1) 10/29/17 05:35 Absolute Nucleated RBC 0.0 /100WBC 10/29/17 05:35 Total Counted 100 10/24/17 05:22 Neutrophils % (Manual) 73 % (39-76) 10/24/17 05:22 Band Neutrophils % 1 % (0-10) 10/24/17 05:22 Lymphocytes % (Manual) 25 % (13-43) 10/24/17 05:22 Monocytes % (Manual) 1 % (4-9) L 10/24/17 05:22 Plt Morphology Comment Normal (NORMAL) 10/24/17 05:22 RBC Morphology Normal (NORMAL) 10/24/17 05:22 Sodium 137 mmol/L (136-145) 10/29/17 05:35 Corrected Sodium 138 mmol/L (136-145) 10/29/17 05:35 Potassium 3.9 mmol/L (3.5-5.1) 10/29/17 12:50 Chloride 102 mmol/L (98-107) 10/29/17 05:35 Carbon Dioxide 25.6 mmol/L (21-32) 10/29/17 05:35 BUN 9 mg/dL (7-18) 10/29/17 05:35 Creatinine 0.80 mg/dL (0.55-1.02) 10/29/17 05:35 Est GFR (MDRD) Af Amer > 60 (>60) 10/29/17 05:35 Est GFR (MDRD) Non-Af > 60 (>60) 10/29/17 05:35 Glucose 124 mg/dL (65-99) H 10/29/17 05:35 POC Glucose (mg/dL) 138 mg/dL (65-99) H 10/29/17 17:06 Lactic Acid 1.1 mmol/L (0.4-2.0) 10/23/17 01:55 Calcium 9.0 mg/dL (8.5-10.1) 10/29/17 05:35 Corrected Calcium 10.4 mg/dL (8.5-10.1) H 10/29/17 05:35 Magnesium 2.0 mg/dL (1.7-2.9) 10/29/17 05:35 Total Bilirubin 0.50 mg/dL (0.2-1.0) 10/29/17 05:35 AST 21 Units/L (15-37) 10/29/17 05:35 ALT 47 Units/L (12-78) 10/29/17 05:35 Alkaline Phosphatase 254 Units/L (46-116) H 10/29/17 05:35 C-Reactive Protein 120.90 mg/L (0-3.0) H 10/22/17 23:55 Total Protein 6.5 g/dL (6.4-8.2) 10/29/17 05:35 Albumin 2.3 g/dL (3.4-5.0) L 10/29/17 05:35 Globulin 4.2 g/dL (2.5-4.5) 10/29/17 05:35 Albumin/Globulin Ratio 0.5 Ratio (1.1-2.1) L 10/29/17 05:35 Specimen Type Clean catch urine 10/22/17 22:50 Urine Color Yellow (YELLOW) 10/22/17 22:50 Urine Appearance Hazy (CLEAR) 10/22/17 22:50 Urine pH 6.5 (5.0 - 8.0) 10/22/17 22:50 Ur Specific Gallant 1.010 (1.000-1.030) 10/22/17 22:50 Urine Protein 2+ (NEGATIVE) 10/22/17 22:50 Urine Glucose (UA) Negative (NEGATIVE) 10/22/17 22:50 Urine Ketones 1+ (NEGATIVE) 10/22/17 22:50 Urine Occult Blood 3+ (NEGATIVE) 10/22/17 22:50 Urine Nitrite Negative (NEGATIVE) 10/22/17 22:50 Urine Bilirubin Negative (NEGATIVE) 10/22/17 22:50 Urine Urobilinogen Normal (NORMAL) 10/22/17 22:50 Ur Leukocyte Esterase Negative (NEGATIVE) 10/22/17 22:50 Urinalysis Comment QNS 10/22/17 22:50 Influenza Type A (PCR) Negative (NEGATIVE) 10/22/17 22:50 Influenza Type B (PCR) Negative (NEGATIVE) 10/22/17 22:50 Streptococcus Screen Negative (NEGATIVE) 10/22/17 22:50 - Plan (1) Right upper lobe pneumonia Status: Acute Qualifiers: Pneumonia type: due to unspecified organism Qualified Code(s): J18.1 - Lobar pneumonia, unspecified organism Plan: resp therapy, iv abtx. blood and sputum cultures collected on admission, repeat sputum. supplemental o2, pulmonary toileting. resume home meds, hold metformin, ssi for blood sugar control. repeat am labs and repeat chest ct q am (2) Constipation Status: Acute Qualifiers: Constipation type: slow transit constipation Qualified Code(s): K59.01 - Slow transit constipation (3) Diabetes Status: Chronic Plan: ssi (4) GERD (gastroesophageal reflux disease) Status: Chronic (5) HTN (hypertension) Status: Chronic Plan: resume home meds, monitor BP
[2017-10-29] MEDS: NS 1000 ML 1,000 ML IV SCH ×2 (20:55→23:48)
[2017-10-29] MEDS: ASPIRIN EC 81 MG PO SCH (20:55)
[2017-10-29] MEDS: SNACK - Diabetic Appropriate PO SCH (20:56)
[2017-10-29] MEDS: SINGULAIR TAB 10 MG PO SCH (21:04)
[2017-10-29] MEDS: NORCO 5/325 MG TAB PO PRN (21:04)
[2017-10-30] MEDS: DUONEB 0.5 MG/3 MG NEB SCH ×6 (01:18→21:34)
[2017-10-30] MEDS: ZOSYN VIAL 3.375 GM 3.375 GM in NS 50 ML IV 50 ML IV SCH ×4 (03:32→20:42)
[2017-10-30] MEDS: CHRONULAC PO SCH ×4 (05:15→20:49)
[2017-10-30] MEDS: MERREM VIAL 500 MG in NS 50 ML IV 50 ML IV SCH ×3 (05:16→21:34)
[2017-10-30 06:19] LABS: BASOPHILS % (AUTO) 0.4 % (0.2-1.0); EOSINOPHILS # (AUTO) 0.3 x10^3/uL (0.0-0.2); EOSINOPHILS % (AUTO) 2.9 % (0.9-2.9); HEMATOCRIT 30.4 % (36.0-47.0); HEMOGLOBIN 10.4 g/dL (12.0-16.0); LYMPHOCYTES # (AUTO) 2.4 X10^3/uL (1.3-2.9); LYMPHOCYTES % (AUTO) 23.5 % (21.0-51.0); MEAN CORPUSCULAR HEMOGLOBIN 29.5 pg (27.0-34.0); MEAN CORPUSCULAR HGB CONC 34.1 g/dL (33.0-35.0); MEAN CORPUSCULAR VOLUME 86.5 fL (80.0-100.0); MEAN PLATELET VOLUME 7.7 fL (7.4-11.0); MONOCYTES # (AUTO) 0.9 x10^3/uL (0.3-0.8); MONOCYTES % (AUTO) 9.1 % (0.0-13.0); NEUTROPHILS # (AUTO) 6.4 x10^3/uL (2.2-4.8); NEUTROPHILS % (AUTO) 64.1 % (42.0-75.0); PLATELET COUNT 485 X10^3/uL (150.0-450.0); RED BLOOD COUNT 3.52 X10^6/uL (3.5-5.4); RED CELL DISTRIBUTION WIDTH 13.5 % (11.6-16.5)
[2017-10-30 06:33] LABS: ALANINE AMINOTRANSFERASE 45 Units/L (12-78); ALBUMIN 2.4 g/dL (3.4-5.0); ALKALINE PHOSPHATASE 276 Units/L (46-116); ASPARTATE AMINO TRANSFERASE 20 Units/L (15-37); BLOOD UREA NITROGEN 7 mg/dL (7-18); CALCIUM 9.5 mg/dL (8.5-10.1); CARBON DIOXIDE 29.4 mmol/L (21-32); CHLORIDE 103 mmol/L (98-107); COR CA(FOR HYPOALB) 10.8 mg/dL (8.5-10.1); COR NA(FOR HYPERGLY) 140 mmol/L (136-145); CREATININE 0.84 mg/dL (0.55-1.02); SODIUM 139 mmol/L (136-145); TOTAL PROTEIN 6.9 g/dL (6.4-8.2); eGFR BLACK RACES > 60 (>60); eGFR NON BLACK RACES > 60 (>60)
[2017-10-30] MEDS ORDERED: NS 250 ML IV 250 ML IV ONE (06:37)
--- NOTE | 2017-10-30 08:26 | CT ---
HISTORY: Right upper lobe pneumonia, hypernatremia, dehydration Study: CT chest with IV contrast Comparison: 10/26/2017. Technique: Multiple axial images of the chest were obtained from the thoracic inlet to the upper abdo men during the administration of IV contrast. Coronal and sagittal images are also reviewed. Dose red uction techniques utilized automatic exposure control. Findings: Right paratracheal and right hilar lymph nodes are again seen which are unchanged in size. These agai n may be reactive. There is no pericardial effusion observed. The thoracic aorta is normal in its c ontour without evidence for aneurysmal dilatation. The central pulmonary arterial system does not de monstrate central filling defects to suggest pulmonary emboli. Evaluation of the lung parenchyma dense peripheral infiltrate is present involving the right upper lo be in the axillary segment. Surrounding ground-glass opacities are also present. Moderate right side pleural effusion is present. Left lungs clear. There are changes of cylindrical bronchiectasis bilate rally.. No pulmonary nodule or mass can be identified. The bony thorax is unremarkable in its appea mana. There is again evidence of polycystic liver disease of multiple very large cyst present. Adre nal glands are normal.. IMPRESSION: No significant interval change. There is dense airspace disease involving the right upper lobe, speci ally in the periphery of the axillary segment of the right upper lobe. Some surrounding ground-glass opacities are present, also likely representing inflammation. Reactive adenopathy is present in the r ight hilum in the right peritracheal region. Moderate right pleural effusion. No evidence of thoracic aortic aneurysm or pulmonary embolus. Polycystic liver disease. Reported By:
[2017-10-30] MEDS: CLARITIN PO SCH (09:03)
[2017-10-30] MEDS: VITAMIN C PO SCH (09:03)
[2017-10-30] MEDS: MUCINEX EXPECTORANT PO SCH ×2 (09:03→20:43)
[2017-10-30] MEDS: VITAMIN D3 PO SCH (09:03)
[2017-10-30] MEDS: HYDROCHLOROTHIAZIDE 25 MG TAB PO SCH (09:03)
[2017-10-30] MEDS: ZESTRIL TAB 40 MG PO SCH (09:03)
[2017-10-30] MEDS: SYNTHROID 50 mcg TAB PO SCH (09:04)
[2017-10-30] MEDS: PROCARDIA XL PO SCH (09:04)
[2017-10-30] MEDS: PROTONIX TAB 40 MG PO SCH (09:04)
[2017-10-30] MEDS: ROBITUSSIN DM PO SCH ×4 (09:05→20:46)
[2017-10-30] MEDS: PULMICORT NEB TX 0.5 MG NEB SCH ×2 (09:05→21:34)
--- NOTE | 2017-10-30 14:37 | PCM.PROG ---
Progress Note - Progress Note for Day of Date: 10/30/17 - Subjective Subjective: The patient is a 67-year-old white female who was admitted on 10/23 with right upper lobe pneumonia. Patient has been receiving IV antibiotics as well as respiratory therapy. Patient's sputum specimen was negative. Patient has continued right lower exp wheezes and presistant cough improving. pt states she feels some improvement. Continue resp therapy, Mucomyst, we encouraged hydration, pulmonary toileting and ambulation. - Past Medical Family Social History Past Med/Fam/Surg Hx: No changes since H&P Allergies: Allergies No Known Drug Allergies Allergy (Verified 10/22/17 22:26) - Review of Systems ROS: No change since H&P - Vital Signs and I&O's Vital Signs: Temperature 98.1 F Pulse Rate [Right Brachial] 74 Pulse Rate [Left Brachial] 72 Pulse Rate 74 Respiratory Rate 18 Blood Pressure [Left Arm] 147/66 Blood Pressure [Right Arm] 176/79 Blood Pressure 138/60 O2 Sat by Pulse Oximetry 92 Intake and Output: Intake & Output 10/28/17 10/29/17 10/30/17 10/31/17 11:59 11:59 11:59 11:59 Intake Total 20480 1961 Balance 20480 1961 - Physical Exam Oriented: Normal Eyes: Normal Ear: Normal Nose: Normal Throat: Normal Respiratory: Diminished, Wheezes, Rhonchi Cardiovascular: Normal : Normal Auscultation: Bowel Sounds: Decreased Tenderness: Normal Skin: Normal Musculoskeletal: Back:Lumbar Psychiatric: Anxiety Affect: Anxious Speech Pattern: Clear - Laboratory and Diagnostics Result Diagrams: 10/30/17 05:30 10/30/17 05:30 Labs: 10/29/17 01:08 Sputum - Expectorated Sputum Sputum Culture - Preliminary 10/29/17 01:08 Sputum - Expectorated Sputum - Final 10/23/17 01:55 Blood Blood Culture - Final 10/23/17 01:47 Blood Blood Culture - Final 10/23/17 02:15 Sputum - Expectorated Sputum Sputum Culture - Final 10/23/17 02:15 Sputum - Expectorated Sputum - Final 10/22/17 22:50 Throat Throat Culture - Final Laboratory WBC 10.0 X10^3/uL (3.6-10.0) 10/30/17 05:30 RBC 3.52 X10^6/uL (3.5-5.4) 10/30/17 05:30 Hgb 10.4 g/dL (12.0-16.0) L 10/30/17 05:30 Hct 30.4 % (36.0-47.0) L 10/30/17 05:30 MCV 86.5 fL (80.0-100.0) 10/30/17 05:30 MCH 29.5 pg (27.0-34.0) 10/30/17 05:30 MCHC 34.1 g/dL (33.0-35.0) 10/30/17 05:30 RDW 13.5 % (11.6-16.5) 10/30/17 05:30 Plt Count 485 X10^3/uL (150.0-450.0) H 10/30/17 05:30 Plt Count Comment Adequate (ADEQUATE) 10/24/17 05:22 MPV 7.7 fL (7.4-11.0) 10/30/17 05:30 Neut % 64.1 % (42.0-75.0) 10/30/17 05:30 Lymph % 23.5 % (21.0-51.0) 10/30/17 05:30 [place] % 9.1 % (0.0-13.0) 10/30/17 05:30 Eos % 2.9 % (0.9-2.9) 10/30/17 05:30 Baso % 0.4 % (0.2-1.0) 10/30/17 05:30 Neut # 6.4 x10^3/uL (2.2-4.8) H 10/30/17 05:30 Lymph # 2.4 X10^3/uL (1.3-2.9) 10/30/17 05:30 [place] # 0.9 x10^3/uL (0.3-0.8) H 10/30/17 05:30 Eos # 0.3 x10^3/uL (0.0-0.2) H 10/30/17 05:30 Baso # 0.0 X10^3/uL (0.0-0.1) 10/30/17 05:30 Absolute Nucleated RBC 0.0 /100WBC 10/30/17 05:30 Total Counted 100 10/24/17 05:22 Neutrophils % (Manual) 73 % (39-76) 10/24/17 05:22 Band Neutrophils % 1 % (0-10) 10/24/17 05:22 Lymphocytes % (Manual) 25 % (13-43) 10/24/17 05:22 Monocytes % (Manual) 1 % (4-9) L 10/24/17 05:22 Plt Morphology Comment Normal (NORMAL) 10/24/17 05:22 RBC Morphology Normal (NORMAL) 10/24/17 05:22 Sodium 139 mmol/L (136-145) 10/30/17 05:30 Corrected Sodium 140 mmol/L (136-145) 10/30/17 05:30 Potassium 3.9 mmol/L (3.5-5.1) 10/30/17 05:30 Chloride 103 mmol/L (98-107) 10/30/17 05:30 Carbon Dioxide 29.4 mmol/L (21-32) 10/30/17 05:30 BUN 7 mg/dL (7-18) 10/30/17 05:30 Creatinine 0.84 mg/dL (0.55-1.02) 10/30/17 05:30 Est GFR (MDRD) Af Amer > 60 (>60) 10/30/17 05:30 Est GFR (MDRD) Non-Af > 60 (>60) 10/30/17 05:30 Glucose 129 mg/dL (65-99) H 10/30/17 05:30 POC Glucose (mg/dL) 169 mg/dL (65-99) H 10/30/17 11:07 Lactic Acid 1.1 mmol/L (0.4-2.0) 10/23/17 01:55 Calcium 9.5 mg/dL (8.5-10.1) 10/30/17 05:30 Corrected Calcium 10.8 mg/dL (8.5-10.1) H 10/30/17 05:30 Magnesium 2.0 mg/dL (1.7-2.9) 10/29/17 05:35 Total Bilirubin 0.30 mg/dL (0.2-1.0) 10/30/17 05:30 AST 20 Units/L (15-37) 10/30/17 05:30 ALT 45 Units/L (12-78) 10/30/17 05:30 Alkaline Phosphatase 276 Units/L (46-116) H 10/30/17 05:30 C-Reactive Protein 120.90 mg/L (0-3.0) H 10/22/17 23:55 Total Protein 6.9 g/dL (6.4-8.2) 10/30/17 05:30 Albumin 2.4 g/dL (3.4-5.0) L 10/30/17 05:30 Globulin 4.5 g/dL (2.5-4.5) 10/30/17 05:30 Albumin/Globulin Ratio 0.5 Ratio (1.1-2.1) L 10/30/17 05:30 Specimen Type Clean catch urine 10/22/17 22:50 Urine Color Yellow (YELLOW) 10/22/17 22:50 Urine Appearance Hazy (CLEAR) 10/22/17 22:50 Urine pH 6.5 (5.0 - 8.0) 10/22/17 22:50 Ur Specific [place] 1.010 (1.000-1.030) 10/22/17 22:50 Urine Protein 2+ (NEGATIVE) 10/22/17 22:50 Urine Glucose (UA) Negative (NEGATIVE) 10/22/17 22:50 Urine Ketones 1+ (NEGATIVE) 10/22/17 22:50 Urine Occult Blood 3+ (NEGATIVE) 10/22/17 22:50 Urine Nitrite Negative (NEGATIVE) 10/22/17 22:50 Urine Bilirubin Negative (NEGATIVE) 10/22/17 22:50 Urine Urobilinogen Normal (NORMAL) 10/22/17 22:50 Ur Leukocyte Esterase Negative (NEGATIVE) 10/22/17 22:50 Urinalysis Comment QNS 10/22/17 22:50 Influenza Type A (PCR) Negative (NEGATIVE) 10/22/17 22:50 Influenza Type B (PCR) Negative (NEGATIVE) 10/22/17 22:50 Streptococcus Screen Negative (NEGATIVE) 10/22/17 22:50 - Plan (1) Right upper lobe pneumonia Status: Acute Qualifiers: Pneumonia type: due to unspecified organism Qualified Code(s): J18.1 - Lobar pneumonia, unspecified organism Plan: resp therapy, iv abtx. blood and sputum cultures collected on admission, repeat sputum. supplemental o2, pulmonary toileting. resume home meds, restart metformin, ssi for blood sugar control. low dose solu medrol 40mg iv q 8hrs x 3doses. repeat am labs and repeat chest ct q am (2) Constipation Status: Acute Qualifiers: Constipation type: slow transit constipation Qualified Code(s): K59.01 - Slow transit constipation (3) Diabetes Status: Chronic Plan: ssi (4) GERD (gastroesophageal reflux disease) Status: Chronic (5) HTN (hypertension) Status: Chronic Plan: resume home meds, monitor BP
[2017-10-30] MEDS: ZITHROMAX INJ 500 MG VIAL 500 MG in NS 250 ML IV 250 ML IV SCH (15:20)
[2017-10-30] MEDS: SOLU-Medrol 40 MG VIAL IVP SCH ×2 (15:21→21:37)
[2017-10-30] MEDS: HumuLIN R SUBCUT PRN ×2 (17:12→21:35)
[2017-10-30] MEDS: ASPIRIN EC 81 MG PO SCH (20:43)
[2017-10-30] MEDS: NORCO 5/325 MG TAB PO PRN (20:43)
[2017-10-30] MEDS: SINGULAIR TAB 10 MG PO SCH (20:44)
[2017-10-30] MEDS: NS 1000 ML 1,000 ML IV SCH (20:44)
[2017-10-30] MEDS: SNACK - Diabetic Appropriate PO SCH (20:44)
[2017-10-31] MEDS: DUONEB 0.5 MG/3 MG NEB SCH ×5 (01:37→17:18)
[2017-10-31] MEDS: ZOSYN VIAL 3.375 GM 3.375 GM in NS 50 ML IV 50 ML IV SCH ×2 (02:21→11:20)
[2017-10-31] MEDS: CHRONULAC PO SCH ×5 (04:31→20:25)
[2017-10-31 05:23] LABS: BASOPHILS # (AUTO) 0.1 X10^3/uL (0.0-0.1); BASOPHILS % (AUTO) 0.9 % (0.2-1.0); HEMOGLOBIN 10.3 g/dL (12.0-16.0); LYMPHOCYTES # (AUTO) 0.9 X10^3/uL (1.3-2.9); LYMPHOCYTES % (AUTO) 7.4 % (21.0-51.0); MEAN CORPUSCULAR HEMOGLOBIN 29.5 pg (27.0-34.0); MEAN CORPUSCULAR HGB CONC 34.2 g/dL (33.0-35.0); MEAN CORPUSCULAR VOLUME 86.3 fL (80.0-100.0); MEAN PLATELET VOLUME 7.7 fL (7.4-11.0); MONOCYTES # (AUTO) 0.3 x10^3/uL (0.3-0.8); MONOCYTES % (AUTO) 2.4 % (0.0-13.0); NEUTROPHILS # (AUTO) 11.1 x10^3/uL (2.2-4.8); NEUTROPHILS % (AUTO) 89.3 % (42.0-75.0); PLATELET COUNT 488 X10^3/uL (150.0-450.0); RED BLOOD COUNT 3.48 X10^6/uL (3.5-5.4); RED CELL DISTRIBUTION WIDTH 13.4 % (11.6-16.5); WHITE BLOOD COUNT 12.4 X10^3/uL (3.6-10.0)
[2017-10-31 05:37] LABS: ALANINE AMINOTRANSFERASE 42 Units/L (12-78); ALBUMIN 2.3 g/dL (3.4-5.0); ALKALINE PHOSPHATASE 285 Units/L (46-116); ASPARTATE AMINO TRANSFERASE 18 Units/L (15-37); BLOOD UREA NITROGEN 10 mg/dL (7-18); CARBON DIOXIDE 24.3 mmol/L (21-32); CHLORIDE 100 mmol/L (98-107); COR CA(FOR HYPOALB) 10.4 mg/dL (8.5-10.1); COR NA(FOR HYPERGLY) 140 mmol/L (136-145); CREATININE 0.98 mg/dL (0.55-1.02); SODIUM 135 mmol/L (136-145); TOTAL PROTEIN 6.8 g/dL (6.4-8.2); eGFR BLACK RACES > 60 (>60); eGFR NON BLACK RACES > 60 (>60)
[2017-10-31] MEDS: SOLU-Medrol 40 MG VIAL IVP SCH (06:19)
[2017-10-31] MEDS: MERREM VIAL 500 MG in NS 50 ML IV 50 ML IV SCH ×3 (06:19→22:00)
[2017-10-31] MEDS: HumuLIN R SUBCUT PRN (06:19)
[2017-10-31] MEDS: PULMICORT NEB TX 0.5 MG NEB SCH (08:52)
[2017-10-31] MEDS ORDERED: GLUCOPHAGE ONE (09:15)
[2017-10-31] MEDS: ZITHROMAX INJ 500 MG VIAL 500 MG in NS 250 ML IV 250 ML IV SCH (09:30)
[2017-10-31] MEDS: VITAMIN D3 PO SCH (09:31)
[2017-10-31] MEDS: ZESTRIL TAB 40 MG PO SCH (09:31)
[2017-10-31] MEDS: HYDROCHLOROTHIAZIDE 25 MG TAB PO SCH (09:31)
[2017-10-31] MEDS: MUCINEX EXPECTORANT PO SCH ×2 (09:32→20:24)
[2017-10-31] MEDS: SYNTHROID 50 mcg TAB PO SCH (09:32)
[2017-10-31] MEDS: VITAMIN C PO SCH (09:32)
[2017-10-31] MEDS: PROCARDIA XL PO SCH (09:32)
[2017-10-31] MEDS: GLUCOPHAGE PO SCH ×2 (09:32→09:39)
[2017-10-31] MEDS: PROTONIX TAB 40 MG PO SCH (09:39)
[2017-10-31] MEDS: CLARITIN PO SCH (09:39)
[2017-10-31] MEDS: ROBITUSSIN DM PO SCH ×4 (09:40→20:25)
[2017-10-31] MEDS: TUSSIONEX PENNKINETIC SUSP PO PRN ×2 (09:47→21:44)
[2017-10-31] MEDS: NS 1000 ML 1,000 ML IV SCH ×2 (11:20→21:43)
[2017-10-31] MEDS: ACTOS PO SCH (13:07)
[2017-10-31] MEDS: ASPIRIN EC 81 MG PO SCH (20:24)
[2017-10-31] MEDS: SINGULAIR TAB 10 MG PO SCH (20:24)
[2017-10-31] MEDS: SNACK - Diabetic Appropriate PO SCH (20:28)
[2017-10-31] MEDS ORDERED: GLUCOPHAGE PO SCH (21:00)
[2017-11-01] MEDS: DUONEB 0.5 MG/3 MG NEB SCH ×6 (01:11→21:22)
[2017-11-01] MEDS: CHRONULAC PO SCH ×4 (03:39→20:57)
[2017-11-01] MEDS: MERREM VIAL 500 MG in NS 50 ML IV 50 ML IV SCH ×3 (05:04→21:58)
[2017-11-01 05:33] LABS: BASOPHILS # (AUTO) 0.1 X10^3/uL (0.0-0.1); BASOPHILS % (AUTO) 0.3 % (0.2-1.0); EOSINOPHILS # (AUTO) 0.1 x10^3/uL (0.0-0.2); EOSINOPHILS % (AUTO) 0.8 % (0.9-2.9); HEMATOCRIT 30.6 % (36.0-47.0); HEMOGLOBIN 10.3 g/dL (12.0-16.0); LYMPHOCYTES # (AUTO) 2.9 X10^3/uL (1.3-2.9); LYMPHOCYTES % (AUTO) 17.2 % (21.0-51.0); MEAN CORPUSCULAR HEMOGLOBIN 29.3 pg (27.0-34.0); MEAN CORPUSCULAR HGB CONC 33.8 g/dL (33.0-35.0); MEAN CORPUSCULAR VOLUME 86.6 fL (80.0-100.0); MEAN PLATELET VOLUME 7.6 fL (7.4-11.0); MONOCYTES # (AUTO) 0.8 x10^3/uL (0.3-0.8); NEUTROPHILS # (AUTO) 12.9 x10^3/uL (2.2-4.8); NEUTROPHILS % (AUTO) 76.7 % (42.0-75.0); PLATELET COUNT 529 X10^3/uL (150.0-450.0); RED BLOOD COUNT 3.53 X10^6/uL (3.5-5.4); RED CELL DISTRIBUTION WIDTH 13.4 % (11.6-16.5); WHITE BLOOD COUNT 16.8 X10^3/uL (3.6-10.0)
[2017-11-01 05:47] LABS: ALANINE AMINOTRANSFERASE 44 Units/L (12-78); ALBUMIN 2.4 g/dL (3.4-5.0); ALKALINE PHOSPHATASE 261 Units/L (46-116); ASPARTATE AMINO TRANSFERASE 22 Units/L (15-37); BLOOD UREA NITROGEN 14 mg/dL (7-18); CALCIUM 9.1 mg/dL (8.5-10.1); CARBON DIOXIDE 24.6 mmol/L (21-32); CHLORIDE 103 mmol/L (98-107); COR CA(FOR HYPOALB) 10.4 mg/dL (8.5-10.1); COR NA(FOR HYPERGLY) 140 mmol/L (136-145); CREATININE 0.93 mg/dL (0.55-1.02); SODIUM 137 mmol/L (136-145); TOTAL PROTEIN 6.5 g/dL (6.4-8.2); eGFR BLACK RACES > 60 (>60); eGFR NON BLACK RACES > 60 (>60)
[2017-11-01] MEDS: HumuLIN R SUBCUT PRN ×2 (05:59→21:58)
[2017-11-01 06:22] LABS: BAND NEUTROPHILS % 4 % (0-10)
[2017-11-01 06:23] LABS: PLATELET MORPHOLOGY COMMENT NORMAL (NORMAL)
[2017-11-01] MEDS: PULMICORT NEB TX 0.5 MG NEB SCH ×2 (09:16→21:22)
--- NOTE | 2017-11-01 09:26 | RAD ---
Examination: Chest, PA and lateral views History: Pneumonia, diabetes and hypertension Comparison 10/28/2017 Findings: Continued normal heart size and clear left chest. Significant improvement in the right uppe r lobe disease since previous study. There is a small amount of residual infiltrate in the periphery of the right upper lobe. A small right pleural effusion is suggested, as noted on recent chest CT. Impression: Significant improvement with incomplete resolution. Reported By:
[2017-11-01] MEDS: ZITHROMAX INJ 500 MG VIAL 500 MG in NS 250 ML IV 250 ML IV SCH (10:09)
[2017-11-01] MEDS: TUSSIONEX PENNKINETIC SUSP PO PRN ×2 (10:09→22:00)
[2017-11-01] MEDS: ACTOS PO SCH (10:10)
[2017-11-01] MEDS: MUCINEX EXPECTORANT PO SCH ×2 (10:10→20:35)
[2017-11-01] MEDS: VITAMIN C PO SCH (10:10)
[2017-11-01] MEDS: HYDROCHLOROTHIAZIDE 25 MG TAB PO SCH (10:10)
[2017-11-01] MEDS: VITAMIN D3 PO SCH (10:10)
[2017-11-01] MEDS: PROCARDIA XL PO SCH (10:10)
[2017-11-01] MEDS: CLARITIN PO SCH (10:10)
[2017-11-01] MEDS: PROTONIX TAB 40 MG PO SCH (10:11)
[2017-11-01] MEDS: ZESTRIL TAB 40 MG PO SCH (10:11)
[2017-11-01] MEDS: ROBITUSSIN DM PO SCH ×4 (10:11→21:57)
[2017-11-01] MEDS: SYNTHROID 50 mcg TAB PO SCH (10:11)
[2017-11-01] MEDS: ASTELIN NASAL SPRAY ENOSTRIL SCH ×2 (13:00→20:57)
[2017-11-01] MEDS: FLONASE NASAL SPRAY ENOSTRIL SCH ×2 (13:00→20:57)
[2017-11-01] MEDS ORDERED: ASTELIN NASAL SPRAY ENOSTRIL ONE (13:10)
[2017-11-01] MEDS: NS 1000 ML 1,000 ML IV SCH ×2 (18:26→20:56)
[2017-11-01] MEDS: SINGULAIR TAB 10 MG PO SCH (20:35)
[2017-11-01] MEDS: SNACK - Diabetic Appropriate PO SCH (20:56)
[2017-11-01] MEDS: ASPIRIN EC 81 MG PO SCH (20:56)
[2017-11-02] MEDS: DUONEB 0.5 MG/3 MG NEB SCH ×4 (00:47→14:20)
[2017-11-02] MEDS: CHRONULAC PO SCH ×3 (02:24→14:37)
[2017-11-02] MEDS: MERREM VIAL 500 MG in NS 50 ML IV 50 ML IV SCH ×2 (05:18→13:32)
[2017-11-02 06:07] LABS: ALANINE AMINOTRANSFERASE 52 Units/L (12-78); ALBUMIN 2.6 g/dL (3.4-5.0); ALKALINE PHOSPHATASE 260 Units/L (46-116); ASPARTATE AMINO TRANSFERASE 26 Units/L (15-37); BLOOD UREA NITROGEN 12 mg/dL (7-18); CARBON DIOXIDE 24.6 mmol/L (21-32); CHLORIDE 103 mmol/L (98-107); COR CA(FOR HYPOALB) 10.1 mg/dL (8.5-10.1); COR NA(FOR HYPERGLY) 138 mmol/L (136-145); CREATININE 0.78 mg/dL (0.55-1.02); SODIUM 138 mmol/L (136-145); TOTAL PROTEIN 6.7 g/dL (6.4-8.2); eGFR BLACK RACES > 60 (>60); eGFR NON BLACK RACES > 60 (>60)
[2017-11-02 06:15] LABS: BASOPHILS % (AUTO) 0.3 % (0.2-1.0); EOSINOPHILS # (AUTO) 0.2 x10^3/uL (0.0-0.2); EOSINOPHILS % (AUTO) 1.7 % (0.9-2.9); HEMATOCRIT 32.1 % (36.0-47.0); LYMPHOCYTES # (AUTO) 1.9 X10^3/uL (1.3-2.9); LYMPHOCYTES % (AUTO) 17.8 % (21.0-51.0); MEAN CORPUSCULAR HEMOGLOBIN 29.8 pg (27.0-34.0); MEAN CORPUSCULAR HGB CONC 34.3 g/dL (33.0-35.0); MEAN CORPUSCULAR VOLUME 86.7 fL (80.0-100.0); MEAN PLATELET VOLUME 7.8 fL (7.4-11.0); MONOCYTES # (AUTO) 0.8 x10^3/uL (0.3-0.8); MONOCYTES % (AUTO) 7.1 % (0.0-13.0); NEUTROPHILS % (AUTO) 73.1 % (42.0-75.0); PLATELET COUNT 459 X10^3/uL (150.0-450.0); RED CELL DISTRIBUTION WIDTH 13.7 % (11.6-16.5); WHITE BLOOD COUNT 10.9 X10^3/uL (3.6-10.0)
[2017-11-02 07:23] LABS: BAND NEUTROPHILS % 4 % (0-10); PLATELET MORPHOLOGY COMMENT NORMAL (NORMAL)
[2017-11-02] MEDS: ZITHROMAX INJ 500 MG VIAL 500 MG in NS 250 ML IV 250 ML IV SCH (09:11)
[2017-11-02] MEDS: ZESTRIL TAB 40 MG PO SCH (09:12)
[2017-11-02] MEDS: SYNTHROID 50 mcg TAB PO SCH (09:12)
[2017-11-02] MEDS: PROCARDIA XL PO SCH (09:12)
[2017-11-02] MEDS: HYDROCHLOROTHIAZIDE 25 MG TAB PO SCH (09:12)
[2017-11-02] MEDS: PROTONIX TAB 40 MG PO SCH (09:12)
[2017-11-02] MEDS: VITAMIN D3 PO SCH (09:12)
[2017-11-02] MEDS: MUCINEX EXPECTORANT PO SCH (09:13)
[2017-11-02] MEDS: ACTOS PO SCH (09:13)
[2017-11-02] MEDS: CLARITIN PO SCH (09:13)
[2017-11-02] MEDS: VITAMIN C PO SCH (09:13)
[2017-11-02] MEDS: ROBITUSSIN DM PO SCH ×2 (09:14→13:32)
[2017-11-02] MEDS: FLONASE NASAL SPRAY ENOSTRIL SCH (09:14)
[2017-11-02] MEDS: GLUCOPHAGE PO SCH (09:14)
[2017-11-02] MEDS: NS 1000 ML 1,000 ML IV SCH (09:14)
[2017-11-02] MEDS: ASTELIN NASAL SPRAY ENOSTRIL SCH (09:14)
[2017-11-02] MEDS: PULMICORT NEB TX 0.5 MG NEB SCH (09:57)
[2017-11-02 16:27] VITALS: BP 144/80
== END 2017-11-02 16:05 | disposition home or self-care (01) | DRG 195 ==
LOC: ER 22:16 → MED/SURG 10-23 02:52 → OBSVTOIN 10-23 02:52
PROVIDERS: ADMIT Internal Medicine; ATTEND Internal Medicine
DX: J18.8 Other pneumonia, unspecified organism (principal); E87.6 Hypokalemia; E86.0 Dehydration; K59.01 Slow transit constipation; E11.65 Type 2 diabetes mellitus with hyperglycemia; I10 Essential (primary) hypertension; K21.9 Gastro-esophageal reflux disease without esophagitis; R53.1 Weakness
CPT/HCPCS: 36415; 71045; 71046; 71260; 74177; 80053; 81003; 83605; 83735; 84132; 85025; 86140; 87040; 87070; 87205; 87502; 87880; 94640; 94669; 94760; 96365; 96374; 96375; 99231; 99283; 99284; A4222; J0456; J0696; J1815; J2185; J2270; J2405; J2543; J2920; J3490; J7620; J7626

== ENCOUNTER → 2017-11-16 | Outpatient (CLI) | payer OTHER ==
[2017-11-02 16:27] VITALS: BP 144/80
--- NOTE | 2017-11-16 11:56 | RAD ---
Examination: Chest, PA and lateral views History: Follow-up pneumonia Comparison 11/01/2017 Findings: There is further improvement in aeration of the right upper lobe with minimal residual incr ease in pulmonary density. No new abnormality is noted. Heart size remains normal. Impression: Essentially complete clearing. See above. No new abnormality noted since prior study. Reported By:
== END ==
LOC: RAD 11:29
PROVIDERS: ATTEND Nurse Practitioner Family
DX: J18.9 Pneumonia, unspecified organism (principal)
CPT/HCPCS: 71046

== ENCOUNTER → 2017-12-16 | Outpatient (CLI) | payer OTHER ==
--- NOTE | 2017-12-16 16:19 | CT ---
Indication: Patellar fracture Exam: CT of the left knee. Technique: Axial spiral images were obtained from the distal femur through the proximal lower leg wit hout contrast. Coronal and sagittal reconstructions were performed. Automated dose control was utiliz ed. Findings: The distal femur is intact. There is a vertically oriented, linear, fracture along the late ral aspect of the patella which is only minimally displaced. The fracture extends into the joint spac e posteriorly along the lateral facet and is only minimally displaced. There is a moderate suprapatel lar effusion extending into the suprapatellar bursa. The tibia and fibula are intact. The bones are m oderately osteopenic. There is mild to moderate space narrowing throughout the knee which is more pro minent medially. No calcifications are seen in the joint. Impression: Vertically oriented , minimally displaced, linear fracture along the lateral aspect of the patella wh ich extends into the joint space posteriorly. Moderate joint space narrowing medially in the knee and a moderate suprapatellar effusion. Diffuse osteopenia. Reported By:
== END ==
LOC: RAD 13:31
PROVIDERS: ATTEND Orthopaedic Surgery
DX: S82.092A Other fracture of left patella, initial encounter for closed fracture (principal); X58.XXXA Exposure to other specified factors, initial encounter; M85.862 Other specified disorders of bone density and structure, left lower leg; M25.462 Effusion, left knee
CPT/HCPCS: 73700

== ENCOUNTER 2024-08-31 09:58 | Inpatient (IN) ==
[2024-08-31 10:07] VITALS: BMI 28.1
--- NOTE | 2024-08-31 10:54 | DR.URINEF ---
HPI Time Seen Time Seen by Provider: 08/31/24 10:36 PCP Primary Care Physician: Aureliano Bedoya Complaint Chief Complaint Doctors Comments: 73-year-old female, diagnosed with UTI here yesterday, complains of worsening symptoms today. Took 1 dose of Macrobid last night, and another dose this morning, complains of increasing right upper quadrant and right flank pain, and chills that started this morning. Admits to multiple episodes of hematuria since her visit here yesterday, accompanied by continued dysuria and suprapubic abdominal discomfort. Denies other complaints. Chief Complaint:: c/o right flank pain, blood in urine and chills. reports that she was here yesterday for blood in urine and was told that she has a UTI COVID-19 Coronavirus risk:travel/contact w/high risk person: No Has patient experienced Coronavirus symptoms: No Source History Provided: Patient Mode of Arrival Mode of Arrival: Wheelchair Timing Onset of Chief Complaint: 08/31/24 PMH PMH Past Medical History: Yes Past Medical History: Arthritis, Coronary Artery Disease, Diabetes, Dyslipidemia, GERD, Headaches, Hypertension, Hypothyroidism, Liver Disease and PUD Past Surgical History: Yes Surgical History: Angioplasty/Stents, Appendectomy, Cholecystectomy, Hysterectomy and Ortho Surgery Family History History of Family Medical Conditions: Yes Family Medical History: Diabetes Mellitus, Cancer, [place], Coronary Artery Disease, Heart Failure and Hypertension Social History Type of Tobacco Use: None Do you use any recreational Drugs:: No Travel Risk Coronavirus risk:travel/contact w/high risk person: No Has patient experienced Coronavirus symptoms: No Infectious screening Have you traveled outside the country in the last 6 months?: No Isolation: Standard ROS Review of Systems Constitutional: See HPI, Chills and Fever Genitourinary: Dysuria, Frequency, Hematuria and Pain (RUQ & R flank pain) All Other Systems: Reviewed and Negative PE Vital Signs Vitals: Vital Signs Temperature 98.3 F Pulse Rate 78 Pulse Rate 79 Pulse Rate 81 Pulse Rate 81 Pulse Rate 82 Pulse Rate 82 Pulse Rate 81 Pulse Rate 80 Pulse Rate 79 Pulse Rate 78 Pulse Rate 80 Pulse Rate 78 Pulse Rate 78 Respiratory Rate 22 Blood Pressure 147/65 Blood Pressure 156/67 Blood Pressure 177/77 Blood Pressure 208/86 Blood Pressure 216/91 O2 Sat by Pulse Oximetry 95 O2 Sat by Pulse Oximetry 95 O2 Sat by Pulse Oximetry 98 O2 Sat by Pulse Oximetry 96 O2 Sat by Pulse Oximetry 97 O2 Sat by Pulse Oximetry 97 O2 Sat by Pulse Oximetry 97 O2 Sat by Pulse Oximetry 99 O2 Sat by Pulse Oximetry 99 O2 Sat by Pulse Oximetry 98 O2 Sat by Pulse Oximetry 100 O2 Sat by Pulse Oximetry 100 O2 Sat by Pulse Oximetry 100 Abdominal Exam Abdominal Exam: Soft and Tenderness (RUQ); negative Distention, Guarding, Rebound or Rigidity Abdominal Tenderness: RUQ ROR Labs Reviewed 08/31/24 11:01 08/31/24 11:01 Laboratory: WBC 15.8 X10^3/uL (3.6-10.0) H 08/31/24 11:01 RBC 4.26 X10^6/uL (3.5-5.4) 08/31/24 11:01 Hgb 13.0 g/dL (12.0-16.0) 08/31/24 11:01 Hct 39.0 % (36.0-47.0) 08/31/24 11:01 MCV 91.4 fL (80.0-100.0) 08/31/24 11:01 MCH 30.5 pg (27.0-34.0) 08/31/24 11:01 MCHC 33.4 g/dL (33.0-35.0) 08/31/24 11:01 RDW 14.0 % (11.6-16.5) 08/31/24 11:01 Plt Count 265 X10^3/uL (150.0-450.0) 08/31/24 11:01 Plt Count Comment Adequate (ADEQUATE) 08/31/24 11:01 MPV 9.1 fL (7.4-11.0) 08/31/24 11:01 Neut % (Auto) 97.2 % (42.0-75.0) H 08/31/24 11:01 Lymph % (Auto) 1.7 % (21.0-51.0) L 08/31/24 11:01 [place] % (Auto) 0.9 % (0.0-13.0) 08/31/24 11:01 Eos % (Auto) 0.0 % (0.9-2.9) L 08/31/24 11:01 Baso % (Auto) 0.2 % (0.2-1.0) 08/31/24 11:01 Neut # (Auto) 15.3 x10^3/uL (2.2-4.8) H 08/31/24 11:01 Lymph # (Auto) 0.3 X10^3/uL (1.3-2.9) L 08/31/24 11:01 [place] # (Auto) 0.1 x10^3/uL (0.3-0.8) L 08/31/24 11:01 Eos # (Auto) 0.0 x10^3/uL (0.0-0.2) 08/31/24 11:01 Baso # (Auto) 0.0 X10^3/uL (0.0-0.1) 08/31/24 11:01 Absolute Nucleated RBC 0.0 /100WBC 08/31/24 11:01 Total Counted 100 08/31/24 11:01 Neutrophils % (Manual) 85 % (39-76) H 08/31/24 11:01 Band Neutrophils % 9 % (0-10) 08/31/24 11:01 Lymphocytes % (Manual) 3 % (13-43) L 08/31/24 11:01 Monocytes % (Manual) 3 % (4-9) L 08/31/24 11:01 Plt Morphology Comment Normal (NORMAL) 08/31/24 11:01 RBC Morphology Normal (NORMAL) 08/31/24 11:01 Sodium 140 mmol/L (136-145) 08/31/24 11:01 Corrected Sodium 141 mmol/L (136-145) 08/31/24 11:01 Potassium 5.2 mmol/L (3.5-5.1) H 08/31/24 11:01 Chloride 103 mmol/L (98-107) 08/31/24 11:01 Carbon Dioxide 25.6 mmol/L (21-32) 08/31/24 11:01 BUN 31 mg/dL (7-18) H 08/31/24 11:01 Creatinine 2.10 mg/dL (0.55-1.02) H 08/31/24 11:01 Est GFR (MDRD) Af Amer 30 (>60) L 08/31/24 11:01 Est GFR (MDRD) Non-Af 25 (>60) L 08/31/24 11:01 Glucose 160 mg/dL (65-99) H 08/31/24 11:01 Calcium 10.1 mg/dL (8.5-10.1) 08/31/24 11:01 Opioid Opioid Risk Tool Age (Shay box if 16-45): No History of Preadolescent Sexual Abuse: No Total: 0 Total Score Risk Category: Low Risk Copyright: [facility] predicting aberrant behaviors Discharge Plan Diagnosis Discharge Problem: UTI (urinary tract infection), Pyelonephritis, ERICA (acute kidney injury) Discharge Plan Patient Disposition: ADMITTED INPATIENT Condition: Fair Prescriptions: No Action metformin 500 MG tablet 500 mg PO DAILY losartan 50 mg tablet 50 mg PO BID atorvastatin 80 mg tablet 80 mg PO QDAY tizanidine 2 mg tablet 2 mg PO QPM cetirizine 10 mg tablet 10 mg PO QPM famotidine 40 mg tablet 40 mg PO QPM gabapentin 400 mg capsule 400 mg PO QPM hydralazine 25 mg tablet 25 mg PO BID erythromycin 250 mg tablet,delayed release (DR/EC) 250 mg PO ACHS nifedipine 60 mg tablet extended release 24hr 60 mg PO BID levothyroxine 50 mcg tablet 50 mcg PO QDAY pantoprazole 40 mg tablet,delayed release (DR/EC) 40 mg PO BID nitroglycerin 0.4 mg tablet, sublingual 0.4 mg sublingual Q5-15M PRN hydroxychloroquine 200 mg tablet 200 mg PO QDAY metoprolol tartrate 25 mg tablet 25 mg PO BID duloxetine 60 mg capsule,delayed release(DR/EC) 60 mg PO QAM budesonide-formoterol [Symbicort] 160-4.5 mcg/actuation HFA aerosol inhaler 2 puff INHALATION BID levocetirizine 5 mg tablet 5 mg PO QDAY Jardiance 25 mg tablet 25 mg PO QDAY Nexlizet 180-10 mg tablet 1 tab PO QDAY Mounjaro 5 mg/0.5 mL pen injector 5 mg SUBCUT QWEEK aspirin 81 mg tablet,delayed release (DR/EC) 81 mg PO QDAY nitrofurantoin monohyd/m-cryst [Macrobid] 100 mg capsule 100 mg PO BID 7 Days Qty: 14 0RF Rx Instructions: must administer with a meal/food nitrofurantoin monohyd/m-cryst [Macrobid] 100 mg capsule 100 mg PO BID 7 Days Qty: 14 0RF Rx Instructions: must administer with a meal/food Health Concerns: Post Hospitalization: new medications and changes needed to prevent readmission or further decline. Pt educated and given instructions on all concerns. Plan of Treatment: Continue with present treatment and follow up plan. Pt is to keep follow up appointment as instructed and take medications as ordered. Orders to Discharge Patient Discharge Orders: Transfer (Routine); Ordered 08/31/24 Ordered By: Richard Otero Follow ups/Referrals Follow ups/Referrals: AURELIANO EBDOYA [Primary Care Provider] - 3 days
[2024-08-31] MEDS: ROCEPHIN VIAL 1 GRAM IV ONE (10:58)
[2024-08-31] MEDS: NS 1,000 ML IV 1,000 ML IV ONE (10:58)
[2024-08-31 11:14] LABS: BASOPHILS % (AUTO) 0.2 % (0.2-1.0); LYMPHOCYTES # (AUTO) 0.3 X10^3/uL (1.3-2.9); LYMPHOCYTES % (AUTO) 1.7 % (21.0-51.0); MEAN CORPUSCULAR HEMOGLOBIN 30.5 pg (27.0-34.0); MEAN CORPUSCULAR HGB CONC 33.4 g/dL (33.0-35.0); MEAN CORPUSCULAR VOLUME 91.4 fL (80.0-100.0); MEAN PLATELET VOLUME 9.1 fL (7.4-11.0); MONOCYTES # (AUTO) 0.1 x10^3/uL (0.3-0.8); MONOCYTES % (AUTO) 0.9 % (0.0-13.0); NEUTROPHILS # (AUTO) 15.3 x10^3/uL (2.2-4.8); NEUTROPHILS % (AUTO) 97.2 % (42.0-75.0); PLATELET COUNT 265 X10^3/uL (150.0-450.0); RED BLOOD COUNT 4.26 X10^6/uL (3.5-5.4); WHITE BLOOD COUNT 15.8 X10^3/uL (3.6-10.0)
[2024-08-31 11:19] LABS: CALCIUM 10.1 mg/dL (8.5-10.1); CARBON DIOXIDE 25.6 mmol/L (21-32); CREATININE 2.1 mg/dL (0.55-1.02); POTASSIUM 5.2 mmol/L (3.5-5.1)
[2024-08-31 11:32] LABS: BAND NEUTROPHILS % 9 % (0-10); PLATELET MORPHOLOGY COMMENT NORMAL (NORMAL)
[2024-08-31] MEDS ORDERED: NS 1,000 ML IV 1,000 ML IV SCH (15:03)
[2024-08-31] MEDS ORDERED: NovoLIN R (or HumuLIN R) SUBCUT PRN (15:03)
[2024-08-31] MEDS ORDERED: CONSULT PHARMACY - POTASSIUM & MAGNESIUM XX SCH ×2 (15:03→19:00)
[2024-08-31] MEDS: ROCEPHIN VIAL 1 GRAM 1 G in NS 100 ML IV 100 ML IV SCH (15:14)
[2024-08-31] MEDS: NS 1,000 ML IV 1,000 ML IV SCH (15:28)
[2024-08-31] MEDS ORDERED: DUONEB 0.5 MG/3 MG (3 mL) NEB SCH (17:00)
[2024-08-31] MEDS: PYRIDIUM PO SCH (17:15)
--- NOTE | 2024-08-31 17:24 | DR.H&P ---
H&P History & Physical for Day of: H&P Date: 08/31/24 Chief Complaint Chief Complaint: PAIN IN SIDE, PAINFUL URINATING, BLOOD IN URINE, CHILLS History of Present Illness History of Present Illness: 73-year-old female, diagnosed with UTI here yesterday, complains of worsening symptoms today. Took 1 dose of Macrobid last night, and another dose this morning, complains of increasing right upper quadrant and right flank pain, and chills that started this morning. Admits to multiple episodes of hematuria since her visit here yesterday, accompanied by continued dysuria and suprapubic abdominal discomfort. Pt had a CT of abd/pelvis in the ER yesterday and FU with PCP this am. Pt has pmh of CAD, DM, RA, HTN, JIL, [place], COPD. Pt admitted for treatment and evaluation of acute illness. Past Medical History Past Medical History: Arthritis, Coronary Artery Disease, Diabetes, Dysl ipidemia, GERD, Headaches, Hypertension, Hypothyroidism, Liver Disease and PUD Past Surgical History Surgical History: Angioplasty/Stents, Appendectomy, Cholecystectomy, Hysterectomy and Ortho Surgery Family History Family Medical History: Diabetes Mellitus, Cancer, [place], Coronary Artery Disease, Heart Failure and Hypertension Social History Type of Tobacco Use: None Does any household member use tobacco: No Alcohol Use: Occasionally Drug Use: None Medications Home Medications: Home Medications Medication Instructions Recorded Confirmed Type aspirin 81 mg tablet,delayed 81 mg PO QDAY 08/30/24 08/31/24 History release atorvastatin 80 mg tablet 80 mg PO QDAY 08/30/24 08/31/24 History bempedoic acid 180 mg-ezetimibe 10 1 tab PO QDAY 08/30/24 08/31/24 History mg tablet (Nexlizet) budesonide-formoterol HFA 160 2 puff inhalation BID 08/30/24 08/31/24 History mcg-4.5 mcg/actuation aerosol inhaler (Symbicort) cetirizine 10 mg tablet 10 mg PO QPM 08/30/24 08/31/24 History duloxetine 60 mg capsule,delayed 60 mg PO QAM 08/30/24 08/31/24 History release empagliflozin 25 mg tablet 25 mg PO QDAY 08/30/24 08/31/24 History (Jardiance) erythromycin 250 mg tablet,delayed 250 mg PO ACHS 08/30/24 08/31/24 History release famotidine 40 mg tablet 40 mg PO QPM 08/30/24 08/31/24 History gabapentin 400 mg capsule 400 mg PO QPM 08/30/24 08/31/24 History hydralazine 25 mg tablet 25 mg PO BID 08/30/24 08/31/24 History hydroxychloroquine 200 mg tablet 200 mg PO QDAY 08/30/24 08/31/24 History levocetirizine 5 mg tablet 5 mg PO QDAY 08/30/24 08/31/24 History levothyroxine 50 mcg tablet 50 mcg PO QDAY 08/30/24 08/31/24 History losartan 50 mg tablet 50 mg PO BID 08/30/24 08/31/24 History metoprolol tartrate 25 mg tablet 25 mg PO BID 08/30/24 08/31/24 History nifedipine 60 mg tablet,extended 60 mg PO BID 08/30/24 08/31/24 History release 24 hr nitroglycerin 0.4 mg sublingual 0.4 mg sublingual Q5-15M PRN 08/30/24 08/31/24 History tablet pantoprazole 40 mg tablet,delayed 40 mg PO BID 08/30/24 08/31/24 History release tirzepatide 5 mg/0.5 mL 5 mg subcut QWEEK 08/30/24 08/31/24 History subcutaneous pen injector (Dilan) tizanidine 2 mg tablet 2 mg PO QPM 08/30/24 08/31/24 History Allergies Allergies Allergy/AdvReac Type Severity Reaction Status Date / Time adhesive Allergy Verified 08/31/24 10:09 lisinopril Allergy Verified 08/31/24 10:09 metoclopramide [From Reglan] AdvReac Intermediate muscle Verified 08/31/24 10:09 weakness Labs 08/31/24 11:01 08/31/24 11:01 Labs: Laboratory WBC 15.8 X10^3/uL (3.6-10.0) H 08/31/24 11:01 RBC 4.26 X10^6/uL (3.5-5.4) 08/31/24 11:01 Hgb 13.0 g/dL (12.0-16.0) 08/31/24 11:01 Hct 39.0 % (36.0-47.0) 08/31/24 11:01 MCV 91.4 fL (80.0-100.0) 08/31/24 11:01 MCH 30.5 pg (27.0-34.0) 08/31/24 11:01 MCHC 33.4 g/dL (33.0-35.0) 08/31/24 11:01 RDW 14.0 % (11.6-16.5) 08/31/24 11:01 Plt Count 265 X10^3/uL (150.0-450.0) 08/31/24 11:01 Plt Count Comment Adequate (ADEQUATE) 08/31/24 11:01 MPV 9.1 fL (7.4-11.0) 08/31/24 11:01 Neut % (Auto) 97.2 % (42.0-75.0) H 08/31/24 11:01 Lymph % (Auto) 1.7 % (21.0-51.0) L 08/31/24 11:01 [place] % (Auto) 0.9 % (0.0-13.0) 08/31/24 11:01 Eos % (Auto) 0.0 % (0.9-2.9) L 08/31/24 11:01 Baso % (Auto) 0.2 % (0.2-1.0) 08/31/24 11:01 Neut # (Auto) 15.3 x10^3/uL (2.2-4.8) H 08/31/24 11:01 Lymph # (Auto) 0.3 X10^3/uL (1.3-2.9) L 08/31/24 11:01 [place] # (Auto) 0.1 x10^3/uL (0.3-0.8) L 08/31/24 11:01 Eos # (Auto) 0.0 x10^3/uL (0.0-0.2) 08/31/24 11:01 Baso # (Auto) 0.0 X10^3/uL (0.0-0.1) 08/31/24 11:01 Absolute Nucleated RBC 0.0 /100WBC 08/31/24 11:01 Total Counted 100 08/31/24 11:01 Neutrophils % (Manual) 85 % (39-76) H 08/31/24 11:01 Band Neutrophils % 9 % (0-10) 08/31/24 11:01 Lymphocytes % (Manual) 3 % (13-43) L 08/31/24 11:01 Monocytes % (Manual) 3 % (4-9) L 08/31/24 11:01 Plt Morphology Comment Normal (NORMAL) 08/31/24 11:01 RBC Morphology Normal (NORMAL) 08/31/24 11:01 Sodium 140 mmol/L (136-145) 08/31/24 11:01 Corrected Sodium 141 mmol/L (136-145) 08/31/24 11:01 Potassium 5.2 mmol/L (3.5-5.1) H 08/31/24 11:01 Chloride 103 mmol/L (98-107) 08/31/24 11:01 Carbon Dioxide 25.6 mmol/L (21-32) 08/31/24 11:01 BUN 31 mg/dL (7-18) H 08/31/24 11:01 Creatinine 2.10 mg/dL (0.55-1.02) H 08/31/24 11:01 Est GFR (MDRD) Af Amer 30 (>60) L 08/31/24 11:01 Est GFR (MDRD) Non-Af 25 (>60) L 08/31/24 11:01 Glucose 160 mg/dL (65-99) H 08/31/24 11:01 Calcium 10.1 mg/dL (8.5-10.1) 08/31/24 11:01 Magnesium 1.8 mg/dL (2.0-2.9) L 08/31/24 11:01 Review of Systems Constitutional: Fever, Chills and Weakness Eyes: No Symptoms Reported ENT: No Symptoms Reported Respiratory: No Symptoms Reported Cardiovascular: No Symptoms Reported Gastrointestinal: Abdominal Pain Genitourinary: Dysuria, Incontinence and Hematuria Musculoskeletal: Back Pain Skin: No Symptoms Reported Neurological: No Symptoms Reported Physical Exam Vital Signs: Vital Signs Temperature 97.5 F Temperature 98.3 F Pulse Rate [Right Brachial] 79 Pulse Rate 80 Pulse Rate 79 Pulse Rate 78 Pulse Rate 79 Pulse Rate 81 Pulse Rate 81 Pulse Rate 82 Pulse Rate 82 Pulse Rate 81 Pulse Rate 80 Pulse Rate 79 Pulse Rate 78 Pulse Rate 80 Pulse Rate 78 Pulse Rate 78 Respiratory Rate 20 Respiratory Rate 22 Blood Pressure [Right Arm] 127/58 Blood Pressure [Left Arm] 131/62 Blood Pressure 131/62 Blood Pressure 147/65 Blood Pressure 156/67 Blood Pressure 177/77 Blood Pressure 208/86 Blood Pressure 216/91 O2 Sat by Pulse Oximetry 98 O2 Sat by Pulse Oximetry 98 O2 Sat by Pulse Oximetry 96 O2 Sat by Pulse Oximetry 95 O2 Sat by Pulse Oximetry 95 O2 Sat by Pulse Oximetry 98 O2 Sat by Pulse Oximetry 96 O2 Sat by Pulse Oximetry 97 O2 Sat by Pulse Oximetry 97 O2 Sat by Pulse Oximetry 97 O2 Sat by Pulse Oximetry 99 O2 Sat by Pulse Oximetry 99 O2 Sat by Pulse Oximetry 98 O2 Sat by Pulse Oximetry 100 O2 Sat by Pulse Oximetry 100 O2 Sat by Pulse Oximetry 100 Oriented: Normal Eyes: Normal Ear: Normal Nose: Normal Throat: Normal Respiratory: RLL Diminished and LLL Diminished Cardiovascular: Normal : Dysuria and Hematuria Tenderness: Other (right cva tenderness) Musculoskeletal: Back:Thoracic and Back:Lumbar Psychiatric: Anxiety Mood Description: Anxious Affect: Anxious Speech Pattern: Clear and Appropriate Assessment/Plan (1) Pyelonephritis: Status: Acute Plan: ADMIT, BLOOD AND URINE CULTURES ON ADMISSION IV ATBX, IV HYDRATION WITH STRICT I&OS PAIN AND NAUSEA CONTROL BS CONTROL VERIFY HOME MEDICATIONS (2) ERICA (acute kidney injury): Status: Acute (3) Essential hypertension: Status: None (4) CAD (coronary artery disease): Status: None (5) Diabetes: Status: Chronic (6) GERD (gastroesophageal reflux disease): Status: Chronic
[2024-08-31] MEDS: SNACK - Diabetic Appropriate PO SCH (20:27)
[2024-08-31] MEDS: PULMICORT NEB TX 0.5 MG NEB SCH (20:49)
[2024-08-31] MEDS ORDERED: PATIENT'S HOME MEDICATION (Budesonide-Formoterol [Symbicort] 160-4.5 mcg/actuation HFA aer IN SCH (21:00)
[2024-08-31] MEDS: APRESOLINE TAB 25 MG PO SCH (21:55)
[2024-08-31] MEDS: ZANAFLEX PO SCH (21:55)
[2024-08-31] MEDS: MAG-OX TAB PO SCH (21:55)
[2024-08-31] MEDS: PROTONIX TAB 40 MG PO SCH (21:55)
[2024-08-31] MEDS: COZAAR PO SCH (21:56)
[2024-08-31] MEDS: PROCARDIA XL 24-hr PO SCH (21:56)
[2024-08-31] MEDS: PEPCID TAB 20 MG PO SCH (21:56)
[2024-08-31] MEDS: ZyrTEC TAB 10 MG PO SCH (21:56)
[2024-08-31] MEDS: LOPRESSOR TAB 25 MG PO SCH (21:56)
[2024-08-31] MEDS: NEURONTIN CAP 400 MG PO SCH (21:56)
[2024-08-31] MEDS: NORCO 5/325 MG TAB PO PRN (22:03)
[2024-09-01 06:27] LABS: BASOPHILS % (AUTO) 0.2 % (0.2-1.0); EOSINOPHILS % (AUTO) 0.1 % (0.9-2.9); LYMPHOCYTES # (AUTO) 0.4 X10^3/uL (1.3-2.9); LYMPHOCYTES % (AUTO) 2.4 % (21.0-51.0); MEAN CORPUSCULAR HGB CONC 34.3 g/dL (33.0-35.0); MEAN CORPUSCULAR VOLUME 90.4 fL (80.0-100.0); MEAN PLATELET VOLUME 9.6 fL (7.4-11.0); MONOCYTES # (AUTO) 0.7 x10^3/uL (0.3-0.8); MONOCYTES % (AUTO) 4.4 % (0.0-13.0); NEUTROPHILS # (AUTO) 14.6 x10^3/uL (2.2-4.8); NEUTROPHILS % (AUTO) 92.9 % (42.0-75.0); PLATELET COUNT 239 X10^3/uL (150.0-450.0); RED BLOOD COUNT 3.54 X10^6/uL (3.5-5.4); RED CELL DISTRIBUTION WIDTH 13.7 % (11.6-16.5); WHITE BLOOD COUNT 15.7 X10^3/uL (3.6-10.0)
[2024-09-01 06:49] LABS: ALBUMIN 3.1 g/dL (3.4-5.0); CALCIUM 8.8 mg/dL (8.5-10.1); CARBON DIOXIDE 24.8 mmol/L (21-32); COR CA(FOR HYPOALB) 9.5 mg/dL (8.5-10.1); CREATININE 1.74 mg/dL (0.55-1.02); MAGNESIUM 1.8 mg/dL (2.0-2.9); POTASSIUM 4.5 mmol/L (3.5-5.1); TOTAL PROTEIN 6.2 g/dL (6.4-8.2)
[2024-09-01] MEDS ORDERED: CONSULT PHARMACY - POTASSIUM & MAGNESIUM XX SCH (07:00)
[2024-09-01 07:01] LABS: APPEARANCE,URINE SLIGHTLY HAZY (CLEAR); BACTERIA,URINE TRACE /HPF (NEGATIVE); COLOR,URINE ORANGE (YELLOW); SQUAMOUS EPITHELIAL CELL,UR RARE /HPF (NEGATIVE)
[2024-09-01 07:11] LABS: BAND NEUTROPHILS % 3 % (0-10); PLATELET MORPHOLOGY COMMENT NORMAL (NORMAL)
[2024-09-01 08:26] LABS: AMYLASE 36 Units/L (25-115); LIPASE 40 Units/L (16-77)
[2024-09-01] MEDS ORDERED: GLUCOPHAGE PO SCH (09:00)
[2024-09-01] MEDS ORDERED: PATIENT'S HOME MEDICATION (Levocetirizine 5 mg tablet) PO SCH (09:00)
[2024-09-01] MEDS ORDERED: CYMBALTA PO SCH (09:00)
[2024-09-01] MEDS: LIPITOR TAB 80 MG PO SCH (09:19)
[2024-09-01] MEDS: FARXIGA PO SCH (09:20)
[2024-09-01] MEDS: ASPIRIN EC 81 MG PO SCH (09:21)
[2024-09-01] MEDS: SYNTHROID 50 mcg TAB PO SCH (09:21)
[2024-09-01] MEDS: PLAQUENIL PO SCH (09:22)
[2024-09-01] MEDS: LOVENOX INJ 30 MG SYR SC SCH (09:42)
[2024-09-01] MEDS: NS 1,000 ML IV 1,000 ML with MAGNESIUM SULFATE 50% INJ VIAL 1 G IV SCH (09:43)
[2024-09-01] MEDS: [UNRECOGNIZED DRUG - OTHER] PO SCH (11:16)
--- NOTE | 2024-09-01 17:13 | PCM.PROG ---
Progress Note Progress Note for Day of Date of Exam: 09/01/24 Subjective Subjective: PT IS 73 WF, ER ADMISSION WITH ACUTE PYELONEPHRITIS. PT HAD UC OBTAINED ON 08/30 +ECOLI, SENSATIVE TO ROCEPHIN WHICH PATIENT HAS BEEN ON SINCE ADMISSION, WBC 15.7 THIS AM, BUN 28 CREAT 1.74. PT HAD LOW GRADE FEVER LAST NIGHT AND CO CONTINUES TO HURT IN HER LOWER BACK AND RIGHT FLANK. PT CO NAUSEA ON ADMISSION, BUT IMPROVING ENCOUGH TO KEEP PO INTAKE DOWN. PT HAS DM AND HOME MEDICATIONS HAVE BEEN REVIEWED AND RESUMED Past Medical Family Social History Allergies: Allergies adhesive Allergy (Verified 08/31/24 10:09) lisinopril Allergy (Verified 08/31/24 10:09) metoclopramide [From Reglan] Adverse Reaction (Intermediate, Verified 08/31/24 10:09) muscle weakness Vital Signs and I&O's Vital Signs: Vital Signs Temperature 99.4 F Temperature 98.7 F Pulse Rate [Right Brachial] 81 Pulse Rate [Right Brachial] 79 Respiratory Rate 20 Respiratory Rate 19 Respiratory Rate 18 Respiratory Rate 19 Blood Pressure [Left Arm] 164/65 Blood Pressure [Left Arm] 142/64 O2 Sat by Pulse Oximetry 91 O2 Sat by Pulse Oximetry 95 Intake and Output: Intake & Output 08/30/24 08/31/24 09/01/24 09/02/24 11:59 11:59 11:59 11:59 Intake Total 1045 / 1045 1743 / 1743 Balance 1045 / 1045 1743 / 1743 Physical Exam Oriented: Normal Eyes: Normal Ear: Normal Nose: Normal Throat: Normal Respiratory: Diminished Cardiovascular: Normal : Dysuria and Hematuria Tenderness: Other (right cva tenderness) Musculoskeletal: Back:Thoracic and Back:Lumbar Psychiatric: Anxiety Mood Description: Anxious Affect: Anxious Speech Pattern: Clear and Appropriate Laboratory and Diagnostics 09/01/24 05:45 09/01/24 05:45 Labs: Laboratory WBC 15.7 X10^3/uL (3.6-10.0) H 09/01/24 05:45 RBC 3.54 X10^6/uL (3.5-5.4) 09/01/24 05:45 Hgb 11.0 g/dL (12.0-16.0) L D 09/01/24 05:45 Hct 32.0 % (36.0-47.0) L 09/01/24 05:45 MCV 90.4 fL (80.0-100.0) 09/01/24 05:45 MCH 31.0 pg (27.0-34.0) 09/01/24 05:45 MCHC 34.3 g/dL (33.0-35.0) 09/01/24 05:45 RDW 13.7 % (11.6-16.5) 09/01/24 05:45 Plt Count 239 X10^3/uL (150.0-450.0) 09/01/24 05:45 Plt Count Comment Adequate (ADEQUATE) 09/01/24 05:45 MPV 9.6 fL (7.4-11.0) 09/01/24 05:45 Neut % (Auto) 92.9 % (42.0-75.0) H 09/01/24 05:45 Lymph % (Auto) 2.4 % (21.0-51.0) L 09/01/24 05:45 [place] % (Auto) 4.4 % (0.0-13.0) 09/01/24 05:45 Eos % (Auto) 0.1 % (0.9-2.9) L 09/01/24 05:45 Baso % (Auto) 0.2 % (0.2-1.0) 09/01/24 05:45 Neut # (Auto) 14.6 x10^3/uL (2.2-4.8) H 09/01/24 05:45 Lymph # (Auto) 0.4 X10^3/uL (1.3-2.9) L 09/01/24 05:45 [place] # (Auto) 0.7 x10^3/uL (0.3-0.8) 09/01/24 05:45 Eos # (Auto) 0.0 x10^3/uL (0.0-0.2) 09/01/24 05:45 Baso # (Auto) 0.0 X10^3/uL (0.0-0.1) 09/01/24 05:45 Absolute Nucleated RBC 0.0 /100WBC 09/01/24 05:45 Total Counted 100 09/01/24 05:45 Neutrophils % (Manual) 92 % (39-76) H 09/01/24 05:45 Band Neutrophils % 3 % (0-10) 09/01/24 05:45 Lymphocytes % (Manual) 2 % (13-43) L 09/01/24 05:45 Monocytes % (Manual) 3 % (4-9) L 09/01/24 05:45 Plt Morphology Comment Normal (NORMAL) 09/01/24 05:45 RBC Morphology Normal (NORMAL) 09/01/24 05:45 Sodium 138 mmol/L (136-145) 09/01/24 05:45 Corrected Sodium 139 mmol/L (136-145) 09/01/24 05:45 Potassium 4.5 mmol/L (3.5-5.1) 09/01/24 05:45 Chloride 105 mmol/L (98-107) 09/01/24 05:45 Carbon Dioxide 24.8 mmol/L (21-32) 09/01/24 05:45 BUN 28 mg/dL (7-18) H 09/01/24 05:45 Creatinine 1.74 mg/dL (0.55-1.02) H 09/01/24 05:45 Est GFR (MDRD) Af Amer 37 (>60) L 09/01/24 05:45 Est GFR (MDRD) Non-Af 30 (>60) L 09/01/24 05:45 Glucose 159 mg/dL (65-99) H 09/01/24 05:45 POC Glucose (mg/dL) 112 mg/dL (65-99) H 09/01/24 16:29 Calcium 8.8 mg/dL (8.5-10.1) 09/01/24 05:45 Corrected Calcium 9.5 mg/dL (8.5-10.1) 09/01/24 05:45 Magnesium 1.8 mg/dL (2.0-2.9) L 09/01/24 05:45 Total Bilirubin 0.60 mg/dL (0.2-1.0) 09/01/24 05:45 AST 20 Units/L (15-37) 09/01/24 05:45 ALT 26 Units/L (12-78) 09/01/24 05:45 Alkaline Phosphatase 93 Units/L (46-116) 09/01/24 05:45 Total Protein 6.2 g/dL (6.4-8.2) L 09/01/24 05:45 Albumin 3.1 g/dL (3.4-5.0) L 09/01/24 05:45 Globulin 3.1 g/dL (2.5-4.5) 09/01/24 05:45 Albumin/Globulin Ratio 1.0 Ratio (1.1-2.1) L 09/01/24 05:45 Amylase 36 Units/L (25-115) 09/01/24 05:45 Lipase 40 Units/L (16-77) 09/01/24 05:45 Specimen Type Clean catch urine 09/01/24 05:55 Urine Color [place] (YELLOW) 09/01/24 05:55 Urine Appearance Slightly hazy (CLEAR) 09/01/24 05:55 Urine pH Cancelled 09/01/24 05:55 Ur Specific [place] Cancelled 09/01/24 05:55 Urine Protein Cancelled 09/01/24 05:55 Urine Glucose (UA) Cancelled 09/01/24 05:55 Urine Ketones Cancelled 09/01/24 05:55 Urine Blood Cancelled 09/01/24 05:55 Urine Nitrite Cancelled 09/01/24 05:55 Urine Bilirubin Cancelled 09/01/24 05:55 Urine Urobilinogen Cancelled 09/01/24 05:55 Ur Leukocyte Esterase Cancelled 09/01/24 05:55 Urine RBC 5-10 /HPF (0-3) A 09/01/24 05:55 Urine WBC 20-30 /HPF (0-5) A 09/01/24 05:55 Ur Squamous Epith Cells Rare /HPF (NEGATIVE) 09/01/24 05:55 Urine Bacteria Trace /HPF (NEGATIVE) 09/01/24 05:55 Ur Culture Indicated? No/not indicated 09/01/24 05:55 Plan (1) Pyelonephritis: Status: Acute Plan: BLOOD AND URINE CULTURES ON ADMISSION IV ATBX, IV HYDRATION WITH STRICT I&OS PAIN AND NAUSEA CONTROL BS CONTROL (2) ERICA (acute kidney injury): Status: Acute (3) Essential hypertension: Status: None (4) CAD (coronary artery disease): Status: None (5) Diabetes: Status: Chronic (6) GERD (gastroesophageal reflux disease): Status: Chronic
[2024-09-01] MEDS: TYLENOL 325 MG TAB PO PRN (18:17)
[2024-09-02 06:18] LABS: ALBUMIN 2.9 g/dL (3.4-5.0); CALCIUM 8.8 mg/dL (8.5-10.1); CARBON DIOXIDE 20.2 mmol/L (21-32); COR CA(FOR HYPOALB) 9.7 mg/dL (8.5-10.1); CREATININE 1.56 mg/dL (0.55-1.02); MAGNESIUM 2.2 mg/dL (2.0-2.9); POTASSIUM 4.6 mmol/L (3.5-5.1); TOTAL PROTEIN 6.3 g/dL (6.4-8.2)
[2024-09-02 06:53] LABS: BASOPHILS % (AUTO) 0.2 % (0.2-1.0); HEMATOCRIT 33.1 % (36.0-47.0); HEMOGLOBIN 11.2 g/dL (12.0-16.0); LYMPHOCYTES # (AUTO) 0.3 X10^3/uL (1.3-2.9); LYMPHOCYTES % (AUTO) 2.4 % (21.0-51.0); MEAN CORPUSCULAR HEMOGLOBIN 30.7 pg (27.0-34.0); MEAN CORPUSCULAR HGB CONC 33.9 g/dL (33.0-35.0); MEAN CORPUSCULAR VOLUME 90.6 fL (80.0-100.0); MEAN PLATELET VOLUME 8.7 fL (7.4-11.0); MONOCYTES # (AUTO) 0.6 x10^3/uL (0.3-0.8); MONOCYTES % (AUTO) 4.7 % (0.0-13.0); NEUTROPHILS # (AUTO) 10.9 x10^3/uL (2.2-4.8); NEUTROPHILS % (AUTO) 92.7 % (42.0-75.0); PLATELET COUNT 200 X10^3/uL (150.0-450.0); RED BLOOD COUNT 3.65 X10^6/uL (3.5-5.4); RED CELL DISTRIBUTION WIDTH 13.7 % (11.6-16.5); WHITE BLOOD COUNT 11.8 X10^3/uL (3.6-10.0)
[2024-09-02 06:58] LABS: BAND NEUTROPHILS % 9 % (0-10); MYELOCYTES % 2; PLATELET MORPHOLOGY COMMENT NORMAL (NORMAL)
--- NOTE | 2024-09-02 09:37 | RAD ---
EXAMINATION:CHEST, 1 VIEWHISTORY:hypoxia; .COMPARISON STUDY:PA and lateral chest 07/26/2024TECHNIQUE:A single view of the chest was obtained.FINDINGS:. Heart size is normal. No acute infiltrates. There is no pneumothorax. Hilar and mediastinal structures and bony structures are unremarkable. Atelectasis in the left retrocardiac region.IMPRESSION:No acute process in the chest.THIS IS AN ELECTRONICALLY VERIFIED FINAL [id number]/2024 9:34 AM - Electronically signed by Elfego Adams MD
[2024-09-02] MEDS: K-DUR TAB 20 MEQ PO ONE (13:09)
[2024-09-02] MEDS: ZETIA TAB 10 MG PO SCH (13:09)
[2024-09-02] MEDS: LASIX IVP ONE (13:09)
[2024-09-03 06:45] LABS: HEMOGLOBIN 11.6 g/dL (12.0-16.0); MEAN PLATELET VOLUME 9.4 fL (7.4-11.0); RED CELL DISTRIBUTION WIDTH 13.6 % (11.6-16.5)
[2024-09-03 06:52] LABS: BASOPHILS % (AUTO) 0.3 % (0.2-1.0); EOSINOPHILS % (AUTO) 0.3 % (0.9-2.9); LYMPHOCYTES # (AUTO) 0.7 X10^3/uL (1.3-2.9); LYMPHOCYTES % (AUTO) 9.3 % (21.0-51.0); MEAN CORPUSCULAR HEMOGLOBIN 31.1 pg (27.0-34.0); MEAN CORPUSCULAR HGB CONC 35.2 g/dL (33.0-35.0); MEAN CORPUSCULAR VOLUME 88.6 fL (80.0-100.0); MONOCYTES # (AUTO) 0.7 x10^3/uL (0.3-0.8); MONOCYTES % (AUTO) 9.7 % (0.0-13.0); NEUTROPHILS # (AUTO) 6.1 x10^3/uL (2.2-4.8); NEUTROPHILS % (AUTO) 80.4 % (42.0-75.0); PLATELET COUNT 212 X10^3/uL (150.0-450.0); RED BLOOD COUNT 3.73 X10^6/uL (3.5-5.4); WHITE BLOOD COUNT 7.6 X10^3/uL (3.6-10.0)
[2024-09-03 07:04] LABS: ALBUMIN 2.9 g/dL (3.4-5.0); CALCIUM 9.3 mg/dL (8.5-10.1); CARBON DIOXIDE 25.4 mmol/L (21-32); COR CA(FOR HYPOALB) 10.2 mg/dL (8.5-10.1); CREATININE 1.57 mg/dL (0.55-1.02); POTASSIUM 3.6 mmol/L (3.5-5.1); TOTAL PROTEIN 6.5 g/dL (6.4-8.2)
[2024-09-03] MEDS: NS 1,000 ML IV 1,000 ML with MAGNESIUM SULFATE 50% INJ VIAL 1 G IV SCH (09:12)
--- NOTE | 2024-09-03 21:27 | PCM.PROG ---
Progress Note Progress Note for Day of Date of Exam: 09/03/24 Subjective Subjective: PT IS 73 WF, ER ADMISSION WITH ACUTE PYELONEPHRITIS. PT HAD UC OBTAINED ON 08/30 +ECOLI, SENSATIVE TO ROCEPHIN WHICH PATIENT HAS BEEN ON SINCE ADMISSION, WBC 15.7 THIS AM, BUN 28 CREAT 1.74. PT HAD LOW GRADE FEVER LAST NIGHT AND CO CONTINUES TO HURT IN HER LOWER BACK AND RIGHT FLANK. PT CO NAUSEA ON ADMISSION, BUT IMPROVING ENCOUGH TO KEEP PO INTAKE DOWN. PT HAS DM AND HOME MEDICATIONS HAVE BEEN REVIEWED AND RESUMED History/Background Aneta Young was admitted earlier in the week for UTI, acute kidney injury, and pyelonephritis. This morning she states she feels a little better but states that she has been having some fever and she gets that she feels worse. Otherwise she feels like she is getting better and her breathing is improved on the oxygen at this time. Clinical Observations Aneta Young had a fever of 101.1 at 8 o'clock last night. She also reported having a fever this morning. Her temperature is too high for discharge, as it is above 100.3. The patient reports feeling hot but denies any pain behind her kidneys or bladder. Her oxygen saturation was 98% this morning, which is an improvement. She is currently on oxygen therapy. Aneta Young appears to be taking it easy in the hospital. She mentions having family members (a nephew and a niece) with her, as well as pets at home (seven cats and three dogs). Past Medical Family Social History Allergies: Allergies adhesive Allergy (Verified 08/31/24 10:09) lisinopril Allergy (Verified 08/31/24 10:09) metoclopramide [From Reglan] Adverse Reaction (Intermediate, Verified 08/31/24 10:09) muscle weakness Review of Systems ROS: No change since H&P Vital Signs and I&O's Vital Signs: Vital Signs Temperature 99.9 F Temperature 98.8 F Pulse Rate [Right Brachial] 76 Pulse Rate [Right Brachial] 71 Pulse Rate 74 Respiratory Rate 18 Respiratory Rate 19 Respiratory Rate 20 Blood Pressure [Right Arm] 161/70 Blood Pressure [Right Arm] 179/79 O2 Sat by Pulse Oximetry 98 O2 Sat by Pulse Oximetry 98 O2 Sat by Pulse Oximetry 95 Intake and Output: Intake & Output 09/01/24 09/02/24 09/03/24 09/04/24 11:59 11:59 11:59 11:59 Intake Total 1045 / 1045 3325 / 3325 1454 / 1454 1462 / 1462 Output Total 400 / 400 Balance 1045 / 1045 3325 / 3325 1454 / 1454 1062 / 1062 Physical Exam Oriented: Normal Eyes: Normal Ear: Normal Nose: Normal Throat: Normal Respiratory: Diminished Cardiovascular: Normal : Dysuria and Hematuria Tenderness: Other (right cva tenderness) Musculoskeletal: Back:Thoracic and Back:Lumbar Psychiatric: Anxiety Mood Description: Anxious Affect: Anxious Speech Pattern: Clear and Appropriate Laboratory and Diagnostics 09/03/24 06:25 09/03/24 06:25 Labs: 09/02/24 11:46 Stool Stool Culture - Preliminary 09/02/24 11:46 Stool - Final 08/31/24 15:45 Blood Blood Culture - Preliminary 08/31/24 15:40 Blood Blood Culture - Preliminary Laboratory WBC 7.6 X10^3/uL (3.6-10.0) 09/03/24 06:25 RBC 3.73 X10^6/uL (3.5-5.4) 09/03/24 06:25 Hgb 11.6 g/dL (12.0-16.0) L 09/03/24 06:25 Hct 33.0 % (36.0-47.0) L 09/03/24 06:25 MCV 88.6 fL (80.0-100.0) 09/03/24 06:25 MCH 31.1 pg (27.0-34.0) 09/03/24 06:25 MCHC 35.2 g/dL (33.0-35.0) H 09/03/24 06:25 RDW 13.6 % (11.6-16.5) 09/03/24 06:25 Plt Count 212 X10^3/uL (150.0-450.0) 09/03/24 06:25 Plt Count Comment Adequate (ADEQUATE) 09/02/24 05:37 MPV 9.4 fL (7.4-11.0) 09/03/24 06:25 Neut % (Auto) 80.4 % (42.0-75.0) H 09/03/24 06:25 Lymph % (Auto) 9.3 % (21.0-51.0) L 09/03/24 06:25 [place] % (Auto) 9.7 % (0.0-13.0) 09/03/24 06:25 Eos % (Auto) 0.3 % (0.9-2.9) L 09/03/24 06:25 Baso % (Auto) 0.3 % (0.2-1.0) 09/03/24 06:25 Neut # (Auto) 6.1 x10^3/uL (2.2-4.8) H 09/03/24 06:25 Lymph # (Auto) 0.7 X10^3/uL (1.3-2.9) L 09/03/24 06:25 [place] # (Auto) 0.7 x10^3/uL (0.3-0.8) 09/03/24 06:25 Eos # (Auto) 0.0 x10^3/uL (0.0-0.2) 09/03/24 06:25 Baso # (Auto) 0.0 X10^3/uL (0.0-0.1) 09/03/24 06:25 Absolute Nucleated RBC 0.1 /100WBC 09/03/24 06:25 Total Counted 100 09/02/24 05:37 Neutrophils % (Manual) 80 % (39-76) H 09/02/24 05:37 Band Neutrophils % 9 % (0-10) 09/02/24 05:37 Lymphocytes % (Manual) 5 % (13-43) L 09/02/24 05:37 Monocytes % (Manual) 4 % (4-9) 09/02/24 05:37 Myelocytes % 2 09/02/24 05:37 Plt Morphology Comment Normal (NORMAL) 09/02/24 05:37 RBC Morphology Normal (NORMAL) 09/02/24 05:37 Sodium 139 mmol/L (136-145) 09/03/24 06:25 Corrected Sodium 140 mmol/L (136-145) 09/03/24 06:25 Potassium 3.6 mmol/L (3.5-5.1) 09/03/24 06:25 Chloride 103 mmol/L (98-107) 09/03/24 06:25 Carbon Dioxide 25.4 mmol/L (21-32) 09/03/24 06:25 BUN 22 mg/dL (7-18) H 09/03/24 06:25 Creatinine 1.57 mg/dL (0.55-1.02) H 09/03/24 06:25 Est GFR (MDRD) Af Amer 42 (>60) L 09/03/24 06:25 Est GFR (MDRD) Non-Af 34 (>60) L 09/03/24 06:25 Glucose 135 mg/dL (65-99) H 09/03/24 06:25 POC Glucose (mg/dL) 110 mg/dL (65-99) H 09/03/24 20:00 Calcium 9.3 mg/dL (8.5-10.1) 09/03/24 06:25 Corrected Calcium 10.2 mg/dL (8.5-10.1) H 09/03/24 06:25 Magnesium 2.2 mg/dL (2.0-2.9) 09/02/24 05:37 Total Bilirubin 0.50 mg/dL (0.2-1.0) 09/03/24 06:25 AST 36 Units/L (15-37) 09/03/24 06:25 ALT 43 Units/L (12-78) 09/03/24 06:25 Alkaline Phosphatase 90 Units/L (46-116) 09/03/24 06:25 B-Natriuretic Peptide 431 pg/mL (0-79) H 09/02/24 06:45 Total Protein 6.5 g/dL (6.4-8.2) 09/03/24 06:25 Albumin 2.9 g/dL (3.4-5.0) L 09/03/24 06:25 Globulin 3.6 g/dL (2.5-4.5) 09/03/24 06:25 Albumin/Globulin Ratio 0.8 Ratio (1.1-2.1) L 09/03/24 06:25 Amylase 36 Units/L (25-115) 09/01/24 05:45 Lipase 40 Units/L (16-77) 09/01/24 05:45 Specimen Type Clean catch urine 09/01/24 05:55 Urine Color [place] (YELLOW) 09/01/24 05:55 Urine Appearance Slightly hazy (CLEAR) 09/01/24 05:55 Urine pH Cancelled 09/01/24 05:55 Ur Specific [place] Cancelled 09/01/24 05:55 Urine Protein Cancelled 09/01/24 05:55 Urine Glucose (UA) Cancelled 09/01/24 05:55 Urine Ketones Cancelled 09/01/24 05:55 Urine Blood Cancelled 09/01/24 05:55 Urine Nitrite Cancelled 09/01/24 05:55 Urine Bilirubin Cancelled 09/01/24 05:55 Urine Urobilinogen Cancelled 09/01/24 05:55 Ur Leukocyte Esterase Cancelled 09/01/24 05:55 Urine RBC 5-10 /HPF (0-3) A 09/01/24 05:55 Urine WBC 20-30 /HPF (0-5) A 09/01/24 05:55 Ur Squamous Epith Cells Rare /HPF (NEGATIVE) 09/01/24 05:55 Urine Bacteria Trace /HPF (NEGATIVE) 09/01/24 05:55 Ur Culture Indicated? No/not indicated 09/01/24 05:55 Stl Occult Blood (IFOB) Negative (NEGATIVE) 09/02/24 11:46 Stl C. diff Tox B Gene Negative (NEGATIVE) 09/02/24 11:46 Stl C. diff [id number] Presumptive negative (NEGATIVE) 09/02/24 11:46 Stool H. pylori Ag Negative (NEGATIVE) 09/02/24 11:46 Plan (1) Pyelonephritis: Status: Acute Plan: BLOOD AND URINE CULTURES ON ADMISSION IV ATBX, IV HYDRATION WITH STRICT I&OS PAIN AND NAUSEA CONTROL BS CONTROL Plan/Recommendations I plan to keep Aneta Young in the hospital for at least one more day due to her persistent fever. We will reassess her condition tomorrow to determine if she can be discharged. The patient will continue to receive oxygen as her oxygen saturation has improved to 98% this morning. (2) ERICA (acute kidney injury): Status: Acute (3) Essential hypertension: Status: None Plan: Continue to monitor blood pressures and treat accordingly (4) CAD (coronary artery disease): Status: None (5) Diabetes: Status: Chronic (6) GERD (gastroesophageal reflux disease): Status: Chronic
[2024-09-04] MEDS: TIRZEPATIDE 5 MG/0.5 ML SUBCUT SCH (01:39)
[2024-09-04 06:24] LABS: BASOPHILS % (AUTO) 0.1 % (0.2-1.0); EOSINOPHILS % (AUTO) 0.2 % (0.9-2.9); HEMATOCRIT 30.6 % (36.0-47.0); HEMOGLOBIN 10.8 g/dL (12.0-16.0); LYMPHOCYTES # (AUTO) 0.8 X10^3/uL (1.3-2.9); LYMPHOCYTES % (AUTO) 7.8 % (21.0-51.0); MEAN CORPUSCULAR HEMOGLOBIN 31.2 pg (27.0-34.0); MEAN CORPUSCULAR HGB CONC 35.2 g/dL (33.0-35.0); MEAN CORPUSCULAR VOLUME 88.8 fL (80.0-100.0); MEAN PLATELET VOLUME 9.6 fL (7.4-11.0); MONOCYTES # (AUTO) 1.5 x10^3/uL (0.3-0.8); MONOCYTES % (AUTO) 15.7 % (0.0-13.0); NEUTROPHILS # (AUTO) 7.4 x10^3/uL (2.2-4.8); NEUTROPHILS % (AUTO) 76.2 % (42.0-75.0); PLATELET COUNT 209 X10^3/uL (150.0-450.0); RED BLOOD COUNT 3.44 X10^6/uL (3.5-5.4); RED CELL DISTRIBUTION WIDTH 13.5 % (11.6-16.5); WHITE BLOOD COUNT 9.7 X10^3/uL (3.6-10.0)
[2024-09-04 06:33] LABS: ALBUMIN 2.6 g/dL (3.4-5.0); CALCIUM 9.1 mg/dL (8.5-10.1); CARBON DIOXIDE 26.1 mmol/L (21-32); COR CA(FOR HYPOALB) 10.2 mg/dL (8.5-10.1); CREATININE 1.33 mg/dL (0.55-1.02); TOTAL PROTEIN 6.1 g/dL (6.4-8.2)
--- NOTE | 2024-09-04 22:34 | PCM.PROG ---
Progress Note Progress Note for Day of Date of Exam: 09/04/24 Subjective Subjective: PT IS 73 WF, ER ADMISSION WITH ACUTE PYELONEPHRITIS. PT HAD UC OBTAINED ON 08/30 +ECOLI, SENSATIVE TO ROCEPHIN WHICH PATIENT HAS BEEN ON SINCE ADMISSION, WBC 15.7 THIS AM, BUN 28 CREAT 1.74. PT HAD LOW GRADE FEVER LAST NIGHT AND CO CONTINUES TO HURT IN HER LOWER BACK AND RIGHT FLANK. PT CO NAUSEA ON ADMISSION, BUT IMPROVING ENCOUGH TO KEEP PO INTAKE DOWN. PT HAS DM AND HOME MEDICATIONS HAVE BEEN REVIEWED AND RESUMED Thursday, 04 September 2024 Subjective: - Currently admitted with UTI caused by E. coli, being treated with Rocephin (sensitive) - Last episode of high fever yesterday at 8:00 AM measuring 100.7F, highest temperature since then was 99.9F at 8:00 PM ("you're still having some fever that's all through the night") - Reports dry throat ("just let my throat's dry") - History of cardiac procedure with Dr. Maki 2 years ago for 95% blockage, no open heart surgery ("95% blocked") Review of Systems: - Constitutional symptoms: Fever present ("you're still having some fever") - Respiratory: O2 saturation 95% on 2L nasal cannula - Gastrointestinal: Negative stool culture, no enteric pathogens identified, negative for Campylobacter jejuni Objective: - Vital Signs: - Blood pressure 143/66 - Heart rate 73 - Respiratory rate 18 - Temperature 99.1F - O2 saturation 95% on 2L nasal cannula Head atraumatic normocephalic Neck trachea midline with no lymphadenopathy. - Chest: Clear breath sounds on auscultation Cardiovascular S1-S2 no murmur rub or gallop Abdomen soft nontender positive bowel sounds Extremities no bilateral lower extremity edema - Investigations: - Blood cultures: First and second sets negative so far - Stool culture: Negative for enteric pathogens and Campylobacter jejuni - Chest x-ray from 23 Jun 2023 noted (old study) Assessment & Plan: 1. Urinary Tract Infection - Confirmed E. coli infection - Continuing current antibiotic therapy with Rocephin - Plan to continue hospitalization due to persistent fever ("I'd be concerned going home with a fever") - Will reassess in 24 hours ("Let's give it another day, and, hopefully, we get this UTI cleared up") Past Medical Family Social History Allergies: Allergies adhesive Allergy (Verified 08/31/24 10:09) lisinopril Allergy (Verified 08/31/24 10:09) metoclopramide [From Reglan] Adverse Reaction (Intermediate, Verified 08/31/24 10:09) muscle weakness Review of Systems ROS: No change since H&P Vital Signs and I&O's Vital Signs: Vital Signs Temperature 98.6 F Temperature 98.1 F Pulse Rate [Right Brachial] 67 Pulse Rate [Right Brachial] 63 Pulse Rate 68 Respiratory Rate 18 Respiratory Rate 20 Blood Pressure [Right Arm] 171/74 Blood Pressure [Right Arm] 155/70 O2 Sat by Pulse Oximetry 93 O2 Sat by Pulse Oximetry 95 O2 Sat by Pulse Oximetry 93 Intake and Output: Intake & Output 09/02/24 09/03/24 09/04/24 09/05/24 11:59 11:59 11:59 11:59 Intake Total 3325 / 3325 1454 / 1454 3302 / 3302 1226 / 1226 Output Total 1920 / 1920 2350 / 2350 Balance 3325 / 3325 1454 / 1454 1382 / 1382 -1124 / -1124 Physical Exam Oriented: Normal Eyes: Normal Ear: Normal Nose: Normal Throat: Normal Respiratory: Diminished Cardiovascular: Normal : Dysuria and Hematuria Tenderness: Other (right cva tenderness) Musculoskeletal: Back:Thoracic and Back:Lumbar Psychiatric: Anxiety Mood Description: Anxious Affect: Anxious Speech Pattern: Clear and Appropriate Laboratory and Diagnostics 09/04/24 05:50 09/04/24 05:50 Labs: 09/02/24 11:46 Stool Stool Culture - Final 09/02/24 11:46 Stool - Final 08/31/24 15:45 Blood Blood Culture - Preliminary 08/31/24 15:40 Blood Blood Culture - Preliminary Laboratory WBC 9.7 X10^3/uL (3.6-10.0) 09/04/24 05:50 RBC 3.44 X10^6/uL (3.5-5.4) L 09/04/24 05:50 Hgb 10.8 g/dL (12.0-16.0) L 09/04/24 05:50 Hct 30.6 % (36.0-47.0) L 09/04/24 05:50 MCV 88.8 fL (80.0-100.0) 09/04/24 05:50 MCH 31.2 pg (27.0-34.0) 09/04/24 05:50 MCHC 35.2 g/dL (33.0-35.0) H 09/04/24 05:50 RDW 13.5 % (11.6-16.5) 09/04/24 05:50 Plt Count 209 X10^3/uL (150.0-450.0) 09/04/24 05:50 Plt Count Comment Adequate (ADEQUATE) 09/02/24 05:37 MPV 9.6 fL (7.4-11.0) 09/04/24 05:50 Neut % (Auto) 76.2 % (42.0-75.0) H 09/04/24 05:50 Lymph % (Auto) 7.8 % (21.0-51.0) L 09/04/24 05:50 [place] % (Auto) 15.7 % (0.0-13.0) H 09/04/24 05:50 Eos % (Auto) 0.2 % (0.9-2.9) L 09/04/24 05:50 Baso % (Auto) 0.1 % (0.2-1.0) L 09/04/24 05:50 Neut # (Auto) 7.4 x10^3/uL (2.2-4.8) H 09/04/24 05:50 Lymph # (Auto) 0.8 X10^3/uL (1.3-2.9) L 09/04/24 05:50 [place] # (Auto) 1.5 x10^3/uL (0.3-0.8) H 09/04/24 05:50 Eos # (Auto) 0.0 x10^3/uL (0.0-0.2) 09/04/24 05:50 Baso # (Auto) 0.0 X10^3/uL (0.0-0.1) 09/04/24 05:50 Absolute Nucleated RBC 0.1 /100WBC 09/04/24 05:50 Total Counted 100 09/02/24 05:37 Neutrophils % (Manual) 80 % (39-76) H 09/02/24 05:37 Band Neutrophils % 9 % (0-10) 09/02/24 05:37 Lymphocytes % (Manual) 5 % (13-43) L 09/02/24 05:37 Monocytes % (Manual) 4 % (4-9) 09/02/24 05:37 Myelocytes % 2 09/02/24 05:37 Plt Morphology Comment Normal (NORMAL) 09/02/24 05:37 RBC Morphology Normal (NORMAL) 09/02/24 05:37 Sodium 136 mmol/L (136-145) 09/04/24 05:50 Corrected Sodium 137 mmol/L (136-145) 09/04/24 05:50 Potassium 4.0 mmol/L (3.5-5.1) 09/04/24 05:50 Chloride 102 mmol/L (98-107) 09/04/24 05:50 Carbon Dioxide 26.1 mmol/L (21-32) 09/04/24 05:50 BUN 15 mg/dL (7-18) 09/04/24 05:50 Creatinine 1.33 mg/dL (0.55-1.02) H 09/04/24 05:50 Est GFR (MDRD) Af Amer 50 (>60) L 09/04/24 05:50 Est GFR (MDRD) Non-Af 42 (>60) L 09/04/24 05:50 Glucose 152 mg/dL (65-99) H 09/04/24 05:50 POC Glucose (mg/dL) 162 mg/dL (65-99) H 09/04/24 19:57 Calcium 9.1 mg/dL (8.5-10.1) 09/04/24 05:50 Corrected Calcium 10.2 mg/dL (8.5-10.1) H 09/04/24 05:50 Magnesium 2.2 mg/dL (2.0-2.9) 09/02/24 05:37 Total Bilirubin 0.60 mg/dL (0.2-1.0) 09/04/24 05:50 AST 26 Units/L (15-37) 09/04/24 05:50 ALT 35 Units/L (12-78) 09/04/24 05:50 Alkaline Phosphatase 80 Units/L (46-116) 09/04/24 05:50 B-Natriuretic Peptide 431 pg/mL (0-79) H 09/02/24 06:45 Total Protein 6.1 g/dL (6.4-8.2) L 09/04/24 05:50 Albumin 2.6 g/dL (3.4-5.0) L 09/04/24 05:50 Globulin 3.5 g/dL (2.5-4.5) 09/04/24 05:50 Albumin/Globulin Ratio 0.7 Ratio (1.1-2.1) L 09/04/24 05:50 Amylase 36 Units/L (25-115) 09/01/24 05:45 Lipase 40 Units/L (16-77) 09/01/24 05:45 Specimen Type Clean catch urine 09/01/24 05:55 Urine Color [place] (YELLOW) 09/01/24 05:55 Urine Appearance Slightly hazy (CLEAR) 09/01/24 05:55 Urine pH Cancelled 09/01/24 05:55 Ur Specific [place] Cancelled 09/01/24 05:55 Urine Protein Cancelled 09/01/24 05:55 Urine Glucose (UA) Cancelled 09/01/24 05:55 Urine Ketones Cancelled 09/01/24 05:55 Urine Blood Cancelled 09/01/24 05:55 Urine Nitrite Cancelled 09/01/24 05:55 Urine Bilirubin Cancelled 09/01/24 05:55 Urine Urobilinogen Cancelled 09/01/24 05:55 Ur Leukocyte Esterase Cancelled 09/01/24 05:55 Urine RBC 5-10 /HPF (0-3) A 09/01/24 05:55 Urine WBC 20-30 /HPF (0-5) A 09/01/24 05:55 Ur Squamous Epith Cells Rare /HPF (NEGATIVE) 09/01/24 05:55 Urine Bacteria Trace /HPF (NEGATIVE) 09/01/24 05:55 Ur Culture Indicated? No/not indicated 09/01/24 05:55 Stl Occult Blood (IFOB) Negative (NEGATIVE) 09/02/24 11:46 Stl C. diff Tox B Gene Negative (NEGATIVE) 09/02/24 11:46 Stl C. diff [id number] Presumptive negative (NEGATIVE) 09/02/24 11:46 Stool H. pylori Ag Negative (NEGATIVE) 09/02/24 11:46 Plan (1) Pyelonephritis: Status: Acute Plan: BLOOD AND URINE CULTURES ON ADMISSION IV ATBX, IV HYDRATION WITH STRICT I&OS PAIN AND NAUSEA CONTROL BS CONTROL Plan/Recommendations I plan to keep Aneta Young in the hospital for at least one more day due to her persistent fever. We will reassess her condition tomorrow to determine if she can be discharged. The patient will continue to receive oxygen as her oxygen saturation has improved to 98% this morning. (2) ERICA (acute kidney injury): Status: Acute (3) Essential hypertension: Status: None Plan: Continue to monitor blood pressures and treat accordingly (4) CAD (coronary artery disease): Status: None (5) Diabetes: Status: Chronic (6) GERD (gastroesophageal reflux disease): Status: Chronic
[2024-09-05 05:08] LABS: BASOPHILS % (AUTO) 0.4 % (0.2-1.0); EOSINOPHILS # (AUTO) 0.1 x10^3/uL (0.0-0.2); EOSINOPHILS % (AUTO) 1.5 % (0.9-2.9); HEMATOCRIT 32.1 % (36.0-47.0); HEMOGLOBIN 11.1 g/dL (12.0-16.0); LYMPHOCYTES # (AUTO) 1.8 X10^3/uL (1.3-2.9); LYMPHOCYTES % (AUTO) 20.5 % (21.0-51.0); MEAN CORPUSCULAR HEMOGLOBIN 30.6 pg (27.0-34.0); MEAN CORPUSCULAR HGB CONC 34.6 g/dL (33.0-35.0); MEAN CORPUSCULAR VOLUME 88.5 fL (80.0-100.0); MEAN PLATELET VOLUME 9.9 fL (7.4-11.0); MONOCYTES # (AUTO) 1.2 x10^3/uL (0.3-0.8); MONOCYTES % (AUTO) 13.4 % (0.0-13.0); NEUTROPHILS # (AUTO) 5.8 x10^3/uL (2.2-4.8); NEUTROPHILS % (AUTO) 64.2 % (42.0-75.0); PLATELET COUNT 259 X10^3/uL (150.0-450.0); RED BLOOD COUNT 3.62 X10^6/uL (3.5-5.4); RED CELL DISTRIBUTION WIDTH 13.6 % (11.6-16.5)
[2024-09-05 05:20] LABS: ALANINE AMINOTRANSFERASE 38 Units/L (12-78); ALBUMIN 2.6 g/dL (3.4-5.0); ALKALINE PHOSPHATASE 86 Units/L (46-116); ASPARTATE AMINO TRANSFERASE 26 Units/L (15-37); BLOOD UREA NITROGEN 15 mg/dL (7-18); CALCIUM 9.6 mg/dL (8.5-10.1); CARBON DIOXIDE 26.1 mmol/L (21-32); CHLORIDE 106 mmol/L (98-107); COR CA(FOR HYPOALB) 10.7 mg/dL (8.5-10.1); CREATININE 1.25 mg/dL (0.55-1.02); GLUCOSE 108 mg/dL (65-99); POTASSIUM 3.8 mmol/L (3.5-5.1); SODIUM 141 mmol/L (136-145); TOTAL PROTEIN 6.7 g/dL (6.4-8.2); eGFR NON BLACK RACES 45 (>60)
[2024-09-05 08:09] VITALS: BP 158/68; PULSE 60; RESP 19; TEMP 97; O2SAT 97
== END 2024-09-05 12:00 | disposition home or self-care (01) | DRG 690 ==
LOC: ER 09:58 → MED/SURG 09:58 → OBSVTOIN 13:29 → MED/SURG 14:20
PROVIDERS: ADMIT Internal Medicine; ATTEND Internal Medicine
DX: R31.9 Hematuria, unspecified; K21.9 Gastro-esophageal reflux disease without esophagitis; Z16.29 Resistance to other single specified antibiotic; M06.80 Other specified rheumatoid arthritis, unspecified site; I25.10 Atherosclerotic heart disease of native coronary artery without angina pectoris; N17.8 Other acute kidney failure; B96.29 Other Escherichia coli [E. coli] as the cause of diseases classified elsewhere; E78.5 Hyperlipidemia, unspecified; N39.0 Urinary tract infection, site not specified; Z16.23 Resistance to quinolones and fluoroquinolones; I10 Essential (primary) hypertension; E11.65 Type 2 diabetes mellitus with hyperglycemia; N12 Tubulo-interstitial nephritis, not specified as acute or chronic; E86.0 Dehydration; E83.42 Hypomagnesemia; E03.8 Other specified hypothyroidism

== ENCOUNTER 2025-05-02 16:38 | Inpatient (IN) ==
[2025-05-02 16:57] VITALS: BMI 26.1
[2025-05-02 17:14] LABS: MEAN PLATELET VOLUME 8.2 fL (7.4-11.0)
[2025-05-02 17:17] LABS: RED CELL DISTRIBUTION WIDTH 13.6 % (11.6-16.5)
[2025-05-02 17:27] LABS: COR CA(FOR HYPOALB) 10.3 mg/dL (8.5-10.1); COR NA(FOR HYPERGLY) 143.0 mmol/L (136-145); CREATININE 1.52 mg/dL (0.55-1.02); eGFR NON BLACK RACES 36.0 (>60)
[2025-05-02] MEDS: NS 250 ML IV 25 ML IV PRN (18:54)
[2025-05-02] MEDS: ZOSYN VIAL 3.375 GRAMS 3.375 G in NS 100 ML IV 100 ML IV ONE (18:55)
[2025-05-02 19:03] LABS: BLOOD/HEMOGLOBIN,URINE 2+ (NEGATIVE); LEUKOCYTE ESTERASE ,URINE 2+ (NEGATIVE); NITRITES,URINE NEGATIVE (NEGATIVE)
[2025-05-02 19:15] LABS: APPEARANCE,URINE CLEAR (CLEAR); SQUAMOUS EPITHELIAL CELL,UR NEGATIVE /HPF (NEGATIVE)
--- NOTE | 2025-05-02 20:32 | DR.EXTPAIN ---
HPI Time seen Time Seen by Provider: 05/02/25 16:45 PCP Primary Care Physician: TIM Tena HPI Comment HPI Comment: Patient with recurrent UTIs, was treated on the for UTI with cefdinir. Patient states she did not get much improvement but saw her PCP recently and was started on Augmentin. Patient states she is taking the Augmentin for about 3 or 4 days with no improvement. On review of her urine culture she does have ESBL resistant to most medications except some IV medications. Patient states she feels wore out and continues to be uncomfortable. Patient states her symptoms have not changed since last time when she was seen and had her CT scan. Patient states she understands that she was supposed to follow-up with her PCP about the liver cysts on the CT scan with need for rule out of cancer but she states she did not get around to it yet. Complaint/Symptoms Chief Complaint:: Patient c/o being tired recently and that her "nose smells different things" reports the last time she had NV was 2 days ago, reports having a productive cough but can not say what it looked like "I was in the dark". reports shortness of breath with exertion, however none noted at this time. Self Treatment fo Chief Complaint: was at ER last and was DX with UTI, URI and was put on an ABX, reports she took all of those and then called her PCP and was started on a different ABX. has not seen PCP recently. COVID-19 Coronavirus risk:travel/contact w/high risk person: No Has patient experienced Coronavirus symptoms: No Source History Provided: Patient and Family Member Mode of arrival Mode of Arrival: Ambulatory Timing Onset of Chief Complaint: 04/25/25 PMH PMH Past Medical History: Yes Past Medical History: Arthritis, Coronary Artery Disease, Diabetes, Dyslipidemia, GERD, Headaches, Hypertension, Hypothyroidism, Liver Disease and PUD Past Surgical History: Yes Surgical History: Angioplasty/Stents, Appendectomy, Cholecystectomy, Hysterectomy and Ortho Surgery Family History History of Family Medical Conditions: Yes Family Medical History: Diabetes Mellitus, Cancer, [place], Coronary Artery Disease, Heart Failure and Hypertension Social History Type of Tobacco Use: None Alcohol Use: None Do you use any recreational Drugs:: No Lives With: Family Lives Where: Home Travel Risk Coronavirus risk:travel/contact w/high risk person: No Has patient experienced Coronavirus symptoms: No Infectious screening Have you traveled outside the country in the last 6 months?: No Isolation: Standard ROS Review of Systems Constitutional: No Symptoms Reported; negative Fever Eyes: No Symptoms Reported ENTM: No Symptoms Reported Respiratoy: No Symptoms Reported Cardiovascular: No Symptoms Reported Gastrointestinal/Abdominal: No Symptoms Reported Genitourinary: See HPI, Dysuria and Frequency Neurological: No Symptoms Reported Musculoskeletal: No Symptoms Reported Integumentary: No Symptoms Reported Hematologic/Lymphatic: No Symptoms Reported Endocrine: No Symptoms Reported Psychiatric: No Symptoms Reported All Other Systems: Reviewed and Negative PE Vital Signs Vitals: Vital Signs Temperature 97.7 F Pulse Rate 81 Pulse Rate 93 Respiratory Rate 20 Respiratory Rate 16 Blood Pressure 159/69 Blood Pressure 159/65 O2 Sat by Pulse Oximetry 100 O2 Sat by Pulse Oximetry 100 General Limitations: No Limitations General Appearance: Alert and In No Apparent Distress Head Head Exam: Normal Inspection Eyes Eye exam: Normal Appearance ENT ENT Exam: Normal Exam Neck Neck Exam: Normal Inspection Chest Chest Inspection: Normal Inspection Respiratory Respiratory Exam: Normal Lung Sounds Bilat Cardiovascular Cardiovascular Exam: Regular Rate and Normal Rhythm Abdominal Exam Abdominal Exam: Normal Inspection, Normal Bowel Sounds and Soft; negative Distention, Tenderness, Guarding, Rebound or Rigidity Extremities Extremities Exam: Normal Inspection Back Back Exam: Normal Inspection Neurological Neurological Exam: Alert, Oriented X3 and CN II-XII Intact Psychiatric Psychiatric Exam: Normal Affect and Normal Mood Skin Skin Exam: Warm, Dry, Intact and Normal Color COURSE Treatment Treatment: Patient with ESBL UTI and elevated white count. Discussed results of workup with patient. Encouraged to follow-up for further workup of her CT findings on last visit. Patient states she continues to feel no improvement and that it has been going on for over a month. Zosyn given in ER. Consultation Called: 20:34 Consultation Comments: Discussed case with Dr. Rodriguez and he is agreeable to admission. ROR Labs Reviewed Laboratory Results Reviewed?: Yes 05/02/25 17:00 05/02/25 17:00 Laboratory: WBC 17.6 X10^3/uL (3.6-10.0) H 05/02/25 17:00 RBC 4.05 X10^6/uL (3.5-5.4) 05/02/25 17:00 Hgb 11.8 g/dL (12.0-16.0) L 05/02/25 17:00 Hct 35.1 % (36.0-47.0) L 05/02/25 17:00 MCV 86.7 fL (80.0-100.0) 05/02/25 17:00 MCH 29.2 pg (27.0-34.0) 05/02/25 17:00 MCHC 33.7 g/dL (33.0-35.0) 05/02/25 17:00 RDW 13.6 % (11.6-16.5) 05/02/25 17:00 Plt Count 590 X10^3/uL (150.0-450.0) H 05/02/25 17:00 MPV 8.2 fL (7.4-11.0) 05/02/25 17:00 Neut % (Auto) 84.8 % (42.0-75.0) H 05/02/25 17:00 Lymph % (Auto) 9.4 % (21.0-51.0) L 05/02/25 17:00 [place] % (Auto) 5.1 % (0.0-13.0) 05/02/25 17:00 Eos % (Auto) 0.3 % (0.9-2.9) L 05/02/25 17:00 Baso % (Auto) 0.4 % (0.2-1.0) 05/02/25 17:00 Neut # (Auto) 15.0 x10^3/uL (2.2-4.8) H 05/02/25 17:00 Lymph # (Auto) 1.7 X10^3/uL (1.3-2.9) 05/02/25 17:00 [place] # (Auto) 0.9 x10^3/uL (0.3-0.8) H 05/02/25 17:00 Eos # (Auto) 0.0 x10^3/uL (0.0-0.2) 05/02/25 17:00 Baso # (Auto) 0.1 X10^3/uL (0.0-0.1) 05/02/25 17:00 Absolute Nucleated RBC 0.1 /100WBC 05/02/25 17:00 Sodium 141 mmol/L (136-145) 05/02/25 17:00 Corrected Sodium 143 mmol/L (136-145) 05/02/25 17:00 Potassium 3.9 mmol/L (3.5-5.1) 05/02/25 17:00 Chloride 103 mmol/L (98-107) 05/02/25 17:00 Carbon Dioxide 24.8 mmol/L (21-32) 05/02/25 17:00 BUN 16 mg/dL (7-18) 05/02/25 17:00 Creatinine 1.52 mg/dL (0.55-1.02) H 05/02/25 17:00 Est GFR (MDRD) Af Amer 43 (>60) L 05/02/25 17:00 Est GFR (MDRD) Non-Af 36 (>60) L 05/02/25 17:00 Glucose 180 mg/dL (65-99) H 05/02/25 17:00 Lactic Acid 1.7 mmol/L (0.4-2.0) 05/02/25 17:50 Calcium 9.3 mg/dL (8.5-10.1) 05/02/25 17:00 Corrected Calcium 10.3 mg/dL (8.5-10.1) H 05/02/25 17:00 Total Bilirubin 0.60 mg/dL (0.2-1.0) 05/02/25 17:00 AST 15 Units/L (15-37) 05/02/25 17:00 ALT 18 Units/L (12-78) 05/02/25 17:00 Alkaline Phosphatase 94 Units/L (46-116) 05/02/25 17:00 Total Protein 7.3 g/dL (6.4-8.2) 05/02/25 17:00 Albumin 2.7 g/dL (3.4-5.0) L 05/02/25 17:00 Globulin 4.6 g/dL (2.5-4.5) H 05/02/25 17:00 Albumin/Globulin Ratio 0.6 Ratio (1.1-2.1) L 05/02/25 17:00 Specimen Type Clean catch urine 05/02/25 18:47 Urine Color Yellow (YELLOW) 05/02/25 18:47 Urine Appearance Clear (CLEAR) 05/02/25 18:47 Urine pH 6.0 (5.0 - 8.0) 05/02/25 18:47 Ur Specific [place] 1.015 (1.000-1.030) 05/02/25 18:47 Urine Protein 2+ (NEGATIVE) 05/02/25 18:47 Urine Glucose (UA) 4+ (NEGATIVE) 05/02/25 18:47 Urine Ketones Negative (NEGATIVE) 05/02/25 18:47 Urine Blood 2+ (NEGATIVE) 05/02/25 18:47 Urine Nitrite Negative (NEGATIVE) 05/02/25 18:47 Urine Bilirubin Negative (NEGATIVE) 05/02/25 18:47 Urine Urobilinogen Normal (NORMAL) 05/02/25 18:47 Ur Leukocyte Esterase 2+ (NEGATIVE) 05/02/25 18:47 Urine RBC 0-2 /HPF (0-3) 05/02/25 18:47 Urine WBC 30-50 /HPF (0-5) A 05/02/25 18:47 Ur Squamous Epith Cells Negative /HPF (NEGATIVE) 05/02/25 18:47 Urine Bacteria Negative /HPF (NEGATIVE) 05/02/25 18:47 Ur Culture Indicated? Yes/culture set up 05/02/25 18:47 SARS-CoV-2 (PCR) Negative (NEGATIVE) 05/02/25 17:00 Influenza Type A (PCR) Negative (NEGATIVE) 05/02/25 17:00 Influenza Type B (PCR) Negative (NEGATIVE) 05/02/25 17:00 RSV (PCR) Negative (NEGATIVE) 05/02/25 17:00 Opioid Opioid Risk Tool Age (Shay box if 16-45): No History of Preadolescent Sexual Abuse: No Total: 0 Total Score Risk Category: Low Risk Copyright: Eric TODD predicting aberrant behaviors Discharge Plan Diagnosis Discharge Problem: Urinary tract infection due to extended-spectrum beta lactamase (ESBL) producing Escherichia coli Discharge Plan Patient Disposition: 09 ADMITTED INPATIENT Condition: Stable Prescriptions: No Action metoprolol tartrate 25 mg tablet 25 mg PO BID Qty: 180 3RF famotidine 40 mg tablet 40 mg PO DAILY gabapentin 400 mg capsule 400 mg PO QPM erythromycin 250 mg tablet,delayed release (DR/EC) 250 mg PO QID levothyroxine 50 mcg tablet 50 mcg PO QDAY pantoprazole 40 mg tablet,delayed release (DR/EC) 40 mg PO BID nitroglycerin 0.4 mg tablet, sublingual 0.4 mg sublingual Q5-15M PRN hydroxychloroquine 200 mg tablet 200 mg PO QDAY duloxetine 60 mg capsule,delayed release(DR/EC) 60 mg PO QAM levocetirizine 5 mg tablet 5 mg PO QDAY Jardiance 25 mg tablet 25 mg PO QDAY Nexlizet 180-10 mg tablet 1 tab PO QDAY Mounjaro 5 mg/0.5 mL pen injector 5 mg SUBCUT QWEEK aspirin 81 mg tablet,delayed release (DR/EC) 81 mg PO QDAY losartan 50 mg tablet 50 mg PO BID nifedipine 60 mg tablet extended release 24hr 60 mg PO BID tizanidine 2 mg tablet 2 mg PO QPM levocetirizine 5 mg tablet 5 mg PO QDAY atorvastatin 80 mg tablet 80 mg PO HS Health Concerns: Post Hospitalization: new medications and changes needed to prevent readmission or further decline. Pt educated and given instructions on all concerns. Plan of Treatment: Continue with present treatment and follow up plan. Pt is to keep follow up appointment as instructed and take medications as ordered. Orders to Discharge Patient Discharge Orders: Transfer (Routine); Ordered 05/02/25 Ordered By: Yunier Nick Follow ups/Referrals Follow ups/Referrals: AURELIANO ALLRED [Primary Care Provider, MEDICAL] - 3 days Instructions Stand Alone Forms: Find Help Web Site, Post Hospital Follow Up Care Print Language: WELSH
[2025-05-02] MEDS ORDERED: NS 250 ML IV 25 ML IV PRN (21:00)
[2025-05-02] MEDS ORDERED: CONSULT PHARMACY - POTASSIUM & MAGNESIUM XX SCH (21:00)
[2025-05-02] MEDS ORDERED: MORPHINE SULFATE INJ 2 MG INJ IVP PRN (21:00)
[2025-05-02] MEDS: K-DUR TAB 20 MEQ PO SCH (22:16)
[2025-05-02] MEDS: LOPRESSOR TAB 25 MG PO SCH (22:16)
[2025-05-02] MEDS: PROTONIX TAB 40 MG PO SCH (22:18)
[2025-05-02] MEDS: COZAAR PO SCH (22:18)
[2025-05-02] MEDS: LIPITOR TAB 80 MG PO SCH (22:18)
[2025-05-02] MEDS: NEURONTIN CAP 400 MG PO SCH (22:30)
[2025-05-03] MEDS: CATAPRES TAB 0.1 MG PO ONE (00:14)
--- NOTE | 2025-05-03 00:45 | EKG ---
Test Reason : HYPERTENSION PROTOCOL Blood Pressure : */* mmHG Vent. Rate : 69 BPM Atrial Rate : 69 BPM P-R Int : 178 ms QRS Dur : 94 ms QT Int : 430 ms P-R-T Axes : 30 -29 1 degrees QTc Int : 460 ms Normal sinus rhythm Moderate voltage criteria for LVH, may be normal variant ( R in aVL , [place] product ) Cannot rule out Anterior infarct (cited on or before 03-MAY-2025) Abnormal ECG When compared with ECG of 19-APR-2025 18:14, Criteria for Inferior infarct are no longer present Questionable change in initial forces of Anterior leads ST no longer depressed in Inferior leads Non-specific change in ST segment in Anterior leads Confirmed by Murali Haro MD ([id number]) on 05/03/2025 7:21:30 AM Referred By: Confirmed By: Murali Haro MD
[2025-05-03] MEDS: APRESOLINE INJ 20 MG VIAL IVP ONE (01:44)
[2025-05-03] MEDS: NORVASC TAB 10 MG PO SCH (03:01)
[2025-05-03] MEDS: NORCO 5/325 MG TAB PO PRN (03:10)
[2025-05-03] MEDS: ZOSYN VIAL 3.375 GRAMS 3.375 G in NS 100 ML IV 100 ML IV SCH (05:43)
[2025-05-03 05:56] LABS: MEAN PLATELET VOLUME 8.5 fL (7.4-11.0); RED CELL DISTRIBUTION WIDTH 13.5 % (11.6-16.5)
[2025-05-03 06:13] LABS: COR CA(FOR HYPOALB) 10.2 mg/dL (8.5-10.1); COR NA(FOR HYPERGLY) 141.0 mmol/L (136-145); CREATININE 1.47 mg/dL (0.55-1.02); eGFR NON BLACK RACES 37.0 (>60)
--- NOTE | 2025-05-03 08:17 | DR.H&P ---
H&P History & Physical for Day of: H&P Date: 05/02/25 Chief Complaint Chief Complaint: weakness, loss of appetite, sob, UTI History of Present Illness History of Present Illness: Patient with recurrent UTIs, was treated on the for UTI with cefdinir. Patient states she did not get much improvement but saw her PCP recently and was started on Augmentin. Patient states she is taking the Augmentin for about 3 or 4 days with no improvement. On review of her urine culture she does have ESBL resistant to most medications except some IV medications. Patient states she feels wore out and continues to be uncomfortable. Patient states her symptoms have not changed since last time when she was seen and had her CT scan. Patient states she understands that she was supposed to follow-up with her PCP about the liver cysts on the CT scan with need for rule out of cancer but she states she did not get around to it yet. Past Medical History Past Medical History: Arthritis, Coronary Artery Disease, Diabetes, Dyslipidemia, GERD, Headaches, Hypertension, Hypothyroidism, Liver Disease and PUD Past Surgical History Surgical History: Angioplasty/Stents, Hysterectomy, Ortho Surgery and Tonsillectomy Family History Family Medical History: Diabetes Mellitus, Cancer, Heart Failure and Hypertension Social History Does patient currently use any type of tobacco product: No Type of Tobacco Use: None Does any household member use tobacco: No Alcohol Use: Occasionally Drug Use: None Medications Home Medications: Home Medications Medication Instructions Recorded Confirmed Type aspirin 81 mg tablet,delayed 81 mg PO QDAY 08/30/24 History release bempedoic acid 180 mg-ezetimibe 10 1 tab PO QDAY 08/3005/02/25 History mg tablet (Nexlizet) duloxetine 60 mg capsule,delayed 60 mg PO QAM 08/30/24 05/02/25 History release empagliflozin 25 mg tablet 25 mg PO QDAY 08/30/2404/12 History (Jardiance) erythromycin 250 mg tablet,delayed 250 mg PO QID 08/3005/02/25 History release famotidine 40 mg tablet 40 mg PO DAILY 08/30/2404/12 History gabapentin 400 mg capsule 400 mg PO QPM 08/30/2405/02 History hydroxychloroquine 200 mg tablet 200 mg PO QDAY 05/02/25 History levocetirizine 5 mg tablet 5 mg PO QDAY 08/30/2405/02 History levothyroxine 50 mcg tablet 50 mcg PO QDAY 08/30/24 History nitroglycerin 0.4 mg sublingual 0.4 mg sublingual Q5-1 5M PRN 08/30/24 05/02/25 History tablet pantoprazole 40 mg tablet,delayed 40 mg PO BID 4 05/02/25 History release tirzepatide 5 mg/0.5 mL 5 mg subcut QWEEK 08/30/24 0 05/02/25 History subcutaneous pen injector (Dilan) losartan 50 mg tablet 50 mg PO BID 04/19/25 History nifedipine 60 mg tablet,extended 60 mg PO BID 04/19/25 05/02/25 History release 24 hr atorvastatin 80 mg tablet 80 mg PO HS 05/02/25 5 History levocetirizine 5 mg tablet 5 mg PO QDAY 05/02/2505/02 History tizanidine 2 mg tablet 2 mg PO QPM 05/02/25 5 History Allergies Allergies Allergy/AdvReac Type Severity Reaction Status Date / Time adhesive Allergy Verified 05/02/25 16:58 lisinopril Allergy Verified 05/02/25 16:58 metoclopramide (From Reglan) AdvReac Intermediate muscle Verified 05/02/25 16:58 weakness Labs 05/03/25 05:26 05/03/25 05:26 Labs: Laboratory WBC 17.5 X10^3/uL (3.6-10.0) H 05/03/25 05:26 RBC 3.74 X10^6/uL (3.5-5.4) 05/03/25 05:26 Hgb 11.1 g/dL (12.0-16.0) L 05/03/25 05:26 Hct 32.3 % (36.0-47.0) L 05/03/25 05:26 MCV 86.4 fL (80.0-100.0) 05/03/25 05:26 MCH 29.6 pg (27.0-34.0) 05/03/25 05:26 MCHC 34.3 g/dL (33.0-35.0) 05/03/25 05:26 RDW 13.5 % (11.6-16.5) 05/03/25 05:26 Plt Count 554 X10^3/uL (150.0-450.0) H 05/03/25 05:26 MPV 8.5 fL (7.4-11.0) 05/03/25 05:26 Neut % (Auto) 86.2 % (42.0-75.0) H 05/03/25 05:26 Lymph % (Auto) 8.4 % (21.0-51.0) L 05/03/25 05:26 [place] % (Auto) 4.9 % (0.0-13.0) 05/03/25 05:26 Eos % (Auto) 0.3 % (0.9-2.9) L 05/03/25 05:26 Baso % (Auto) 0.2 % (0.2-1.0) 05/03/25 05:26 Neut # (Auto) 15.1 x10^3/uL (2.2-4.8) H 05/03/25 05:26 Lymph # (Auto) 1.5 X10^3/uL (1.3-2.9) 05/03/25 05:26 [place] # (Auto) 0.9 x10^3/uL (0.3-0.8) H 05/03/25 05:26 Eos # (Auto) 0.1 x10^3/uL (0.0-0.2) 05/03/25 05:26 Baso # (Auto) 0.0 X10^3/uL (0.0-0.1) 05/03/25 05:26 Absolute Nucleated RBC 0.0 /100WBC 05/03/25 05:26 Sodium 138 mmol/L (136-145) 05/03/25 05:26 Corrected Sodium 141 mmol/L (136-145) 05/03/25 05:26 Potassium 3.7 mmol/L (3.5-5.1) 05/03/25 05:26 Chloride 103 mmol/L (98-107) 05/03/25 05:26 Carbon Dioxide 25.4 mmol/L (21-32) 05/03/25 05:26 BUN 16 mg/dL (7-18) 05/03/25 05:26 Creatinine 1.47 mg/dL (0.55-1.02) H 05/03/25 05:26 Est GFR (MDRD) Af Amer 45 (>60) L 05/03/25 05:26 Est GFR (MDRD) Non-Af 37 (>60) L 05/03/25 05:26 Glucose 218 mg/dL (65-99) H 05/03/25 05:26 POC Glucose (mg/dL) 202 mg/dL (65-99) H 05/03/25 05:36 Lactic Acid 1.7 mmol/L (0.4-2.0) 05/02/25 17:50 Calcium 9.0 mg/dL (8.5-10.1) 05/03/25 05:26 Corrected Calcium 10.2 mg/dL (8.5-10.1) H 05/03/25 05:26 Total Bilirubin 0.50 mg/dL (0.2-1.0) 05/03/25 05:26 AST 12 Units/L (15-37) L 05/03/25 05:26 ALT 17 Units/L (12-78) 05/03/25 05:26 Alkaline Phosphatase 84 Units/L (46-116) 05/03/25 05:26 Total Protein 6.6 g/dL (6.4-8.2) 05/03/25 05:26 Albumin 2.5 g/dL (3.4-5.0) L 05/03/25 05:26 Globulin 4.1 g/dL (2.5-4.5) 05/03/25 05:26 Albumin/Globulin Ratio 0.6 Ratio (1.1-2.1) L 05/03/25 05:26 Specimen Type Clean catch urine 05/02/25 18:47 Urine Color Yellow (YELLOW) 05/02/25 18:47 Urine Appearance Clear (CLEAR) 05/02/25 18:47 Urine pH 6.0 (5.0 - 8.0) 05/02/25 18:47 Ur Specific [place] 1.015 (1.000-1.030) 05/02/25 18:47 Urine Protein 2+ (NEGATIVE) 05/02/25 18:47 Urine Glucose (UA) 4+ (NEGATIVE) 05/02/25 18:47 Urine Ketones Negative (NEGATIVE) 05/02/25 18:47 Urine Blood 2+ (NEGATIVE) 05/02/25 18:47 Urine Nitrite Negative (NEGATIVE) 05/02/25 18:47 Urine Bilirubin Negative (NEGATIVE) 05/02/25 18:47 Urine Urobilinogen Normal (NORMAL) 05/02/25 18:47 Ur Leukocyte Esterase 2+ (NEGATIVE) 05/02/25 18:47 Urine RBC 0-2 /HPF (0-3) 05/02/25 18:47 Urine WBC 30-50 /HPF (0-5) A 05/02/25 18:47 Ur Squamous Epith Cells Negative /HPF (NEGATIVE) 05/02/25 18:47 Urine Bacteria Negative /HPF (NEGATIVE) 05/02/25 18:47 Ur Culture Indicated? Yes/culture set up 05/02/25 18:47 SARS-CoV-2 (PCR) Negative (NEGATIVE) 05/02/25 17:00 Influenza Type A (PCR) Negative (NEGATIVE) 05/02/25 17:00 Influenza Type B (PCR) Negative (NEGATIVE) 05/02/25 17:00 RSV (PCR) Negative (NEGATIVE) 05/02/25 17:00 Physical Exam Vital Signs: Vital Signs Temperature 97.6 F Pulse Rate [Bilateral Radial] 73 Respiratory Rate 18 Blood Pressure [Right Arm] 188/92 Blood Pressure [Right Arm] 197/82 Blood Pressure [Right Arm] 218/89 Blood Pressure [Right Arm] 217/93 Blood Pressure [Right Arm] 219/91 Blood Pressure [Right Arm] 207/85 Blood Pressure [Right Arm] 217/97 Blood Pressure [Right Arm] 205/96 Blood Pressure [Right Arm] 205/85 Blood Pressure [Right Arm] 221/95 Blood Pressure [Right Arm] 226/95 Blood Pressure [Right Arm] 226/97 Blood Pressure [Right Arm] 230/96 O2 Sat by Pulse Oximetry 99 Oriented: Normal Eyes: Blurred Vision (vague co vision changes) Ear: Normal Nose: Discharge Throat: Normal Respiratory: RLL Diminished and LLL Diminished Cardiovascular: Normal : Frequency Auscultation: Bowel Sounds: Normal Palpation: Normal Tenderness: Suprapubic and Mild Skin: Decreased Turgur Psychiatric: Depression Mood Description: Depressed Speech Pattern: Clear and Appropriate Assessment/Plan (1) Urinary tract infection due to extended-spectrum beta lactamase (ESBL) producing Escherichia coli: Status: Acute Plan: ADMIT, UC AND BC ON ADMISSION IV HYDRATION, BP AND BS CONTROL IV ATBX THERAPY, VERIFY HOME MEDICATIONS (2) Upper respiratory infection: Status: Acute (3) ERICA (acute kidney injury): Status: Acute (4) Essential hypertension: Status: None (5) CAD (coronary artery disease): Status: None (6) HLD (hyperlipidemia): Status: None
[2025-05-03] MEDS ORDERED: PHARMACY CONSULT - MEROPENEM XX SCH (09:00)
[2025-05-03] MEDS ORDERED: [UNRECOGNIZED DRUG - OTHER] PO SCH (09:00)
[2025-05-03] MEDS: CYMBALTA PO SCH (09:06)
[2025-05-03] MEDS: PLAQUENIL PO SCH (09:08)
[2025-05-03] MEDS: ASPIRIN EC 81 MG PO SCH (09:09)
[2025-05-03] MEDS: PEPCID TAB 40 MG PO SCH (09:09)
[2025-05-03] MEDS ORDERED: NovoLIN R (or HumuLIN R) SUBCUT PRN (09:56)
[2025-05-03] MEDS: FARXIGA PO SCH (10:14)
[2025-05-03] MEDS: NS 1,000 ML IV 1,000 ML IV SCH (10:15)
[2025-05-03] MEDS ORDERED: PHARMACY CONSULT XX SCH (11:00)
[2025-05-03] MEDS: LOVENOX INJ 40 MG SYR SC SCH (11:31)
[2025-05-03] MEDS: INVanz INJ 1 GRAM VIAL 1 G in NS 100 ML IV 100 ML IV SCH (11:31)
[2025-05-03] MEDS: NS 250 ML IV 250 ML IV ONE (11:59)
[2025-05-03] MEDS: ZOFRAN INJ 4 MG VIAL IVP PRN (12:57)
--- NOTE | 2025-05-03 15:54 | RAD ---
EXAM: ACUTE ABDOMEN SERI ES HISTORY: ABD PAIN; STENTS, SHOULDER, BACK, HTN COMPARISON: Chest x-ray and CT abdomen/pelvis dated 04/19/2025 TECHNIQUE: AP chest; AP abdomen, supine and upright FINDINGS: Unremarkable cardiac silhouette. No focal consolidation, pleural effusion, or visible pneumothorax. No abnormally distended bowel loops. No free peritoneal air. Mild colonic stool burden. Right upper quadrant metallic surgical clips. IMPRESSION: No acute findings. Unremarkable bowel gas pattern. THIS IS AN ELECTRONICALLY VERIFIED FINAL REPORT 05/03/2025 3:51 PM - Electronically signed by Jeromy Carr MD
[2025-05-03] MEDS: SNACK - Diabetic Appropriate PO SCH (20:23)
[2025-05-03] MEDS: TYLENOL 325 MG TAB PO PRN (20:45)
[2025-05-03] MEDS: [UNRECOGNIZED DRUG - OTHER] PO SCH (20:48)
[2025-05-04] MEDS: CATAPRES TAB 0.1 MG PO ONE (00:57)
[2025-05-04 05:52] LABS: MEAN PLATELET VOLUME 8.2 fL (7.4-11.0); RED CELL DISTRIBUTION WIDTH 13.8 % (11.6-16.5)
[2025-05-04 06:09] LABS: COR NA(FOR HYPERGLY) 145.0 mmol/L (136-145); CREATININE 1.46 mg/dL (0.55-1.02); eGFR NON BLACK RACES 37.0 (>60)
[2025-05-04 06:13] LABS: COR CA(FOR HYPOALB) 10.6 mg/dL (8.5-10.1)
[2025-05-04] MEDS: LASIX PO SCH (08:22)
[2025-05-04] MEDS: LASIX PO ONE (09:34)
[2025-05-04] MEDS: COLACE CAP 100 MG PO PRN (20:19)
[2025-05-05 06:12] LABS: MEAN PLATELET VOLUME 8.6 fL (7.4-11.0); RED CELL DISTRIBUTION WIDTH 13.5 % (11.6-16.5)
[2025-05-05 06:26] LABS: COR CA(FOR HYPOALB) 10.7 mg/dL (8.5-10.1); COR NA(FOR HYPERGLY) 139.0 mmol/L (136-145); CREATININE 1.56 mg/dL (0.55-1.02); eGFR NON BLACK RACES 34.0 (>60)
[2025-05-05] MEDS ORDERED: CONSULT PHARMACY - POTASSIUM & MAGNESIUM XX SCH (08:00)
[2025-05-05] MEDS: NS 1,000 ML IV 1,000 ML with MAGNESIUM SULFATE 50% INJ VIAL 1 G IV SCH (08:41)
[2025-05-05] MEDS: CATAPRES TAB 0.1 MG PO ONE (12:40)
[2025-05-06 07:00] LABS: MEAN PLATELET VOLUME 8.7 fL (7.4-11.0); RED CELL DISTRIBUTION WIDTH 13.2 % (11.6-16.5)
[2025-05-06 07:05] LABS: COR CA(FOR HYPOALB) 10.6 mg/dL (8.5-10.1); COR NA(FOR HYPERGLY) 140.0 mmol/L (136-145); CREATININE 1.48 mg/dL (0.55-1.02); eGFR NON BLACK RACES 37.0 (>60)
[2025-05-06] MEDS: ULTRAM PO PRN (09:06)
[2025-05-07 06:55] LABS: MEAN PLATELET VOLUME 8.4 fL (7.4-11.0); RED CELL DISTRIBUTION WIDTH 13.4 % (11.6-16.5)
[2025-05-07 07:03] LABS: COR CA(FOR HYPOALB) 10.4 mg/dL (8.5-10.1); COR NA(FOR HYPERGLY) 139.0 mmol/L (136-145); CREATININE 1.33 mg/dL (0.55-1.02); eGFR NON BLACK RACES 41.0 (>60)
[2025-05-07] MEDS: NS 1,000 ML IV 1,000 ML IV SCH (10:06)
[2025-05-07] MEDS: LINZESS PO SCH (11:48)
[2025-05-08 05:55] LABS: MEAN PLATELET VOLUME 8.7 fL (7.4-11.0); RED CELL DISTRIBUTION WIDTH 13.6 % (11.6-16.5)
[2025-05-08 06:11] LABS: COR CA(FOR HYPOALB) 10.2 mg/dL (8.5-10.1); COR NA(FOR HYPERGLY) 140.0 mmol/L (136-145); CREATININE 1.19 mg/dL (0.55-1.02); eGFR NON BLACK RACES 47.0 (>60)
[2025-05-08 07:55] VITALS: BP 170/72; PULSE 62; RESP 15; TEMP 97.7; O2SAT 98
[2025-05-08] MEDS ORDERED: LINZESS PO SCH (09:00)
== END 2025-05-08 10:59 | disposition swing bed (61) | DRG 690 ==
LOC: ER 16:38 → MED/SURG 16:38 → OBSVTOIN 20:44 → MED/SURG 21:08
PROVIDERS: ADMIT Obstetrics & Gynecology Obstetrics; ATTEND Internal Medicine
DX: E78.5 Hyperlipidemia, unspecified; E86.0 Dehydration; E11.65 Type 2 diabetes mellitus with hyperglycemia; R10.84 Generalized abdominal pain; Z16.23 Resistance to quinolones and fluoroquinolones; I25.10 Atherosclerotic heart disease of native coronary artery without angina pectoris; E03.8 Other specified hypothyroidism; E83.42 Hypomagnesemia; R26.89 Other abnormalities of gait and mobility; M06.8A Other specified rheumatoid arthritis, other specified site; K27.9 Peptic ulcer, site unspecified, unspecified as acute or chronic, without hemorrhage or perforation; Z16.12 Extended spectrum beta lactamase (ESBL) resistance; N39.0 Urinary tract infection, site not specified; J06.9 Acute upper respiratory infection, unspecified; Z16.29 Resistance to other single specified antibiotic; K76.0 Fatty (change of) liver, not elsewhere classified; K21.9 Gastro-esophageal reflux disease without esophagitis; N17.8 Other acute kidney failure; R53.1 Weakness; M19.90 Unspecified osteoarthritis, unspecified site; I12.9 Hypertensive chronic kidney disease with stage 1 through stage 4 chronic kidney disease, or unspecified chronic kidney disease; R06.02 Shortness of breath; R94.31 Abnormal electrocardiogram [ECG] [EKG]; B96.29 Other Escherichia coli [E. coli] as the cause of diseases classified elsewhere; Z29.89 Encounter for other specified prophylactic measures; Z03.818 Encounter for observation for suspected exposure to other biological agents ruled out; N18.9 Chronic kidney disease, unspecified

== ENCOUNTER 2025-05-08 11:00 | Inpatient (IN) ==
[2025-05-08] MEDS ORDERED: MORPHINE SULFATE INJ 2 MG INJ IVP PRN (12:10)
[2025-05-08] MEDS ORDERED: COLACE CAP 100 MG PO PRN (12:10)
[2025-05-08] MEDS ORDERED: NovoLIN R (or HumuLIN R) SUBCUT PRN (12:10)
[2025-05-08] MEDS ORDERED: NORCO 5/325 MG TAB PO PRN (12:10)
--- NOTE | 2025-05-08 12:14 | PT/OTEVAL ---
PT/OT OBJECTIVES - HISTORY Prescription: OT Consult Diagnosis: Swingbed - UTI w/ Ecoli ESBL Precautions: ESBL PMH: Arthritis, Coronary Artery Disease, Diabetes, Dyslipidemia, GERD, Headaches, Hypertension, Hypothyroidism, Liver Disease, PUD, Angioplasty/Stents, Hysterectomy, Ortho Surgery and Tonsillectomy Prior Level of Function: Independent Other: Per pt report, pt lives at home with family in a 1 story home with ~ 3 steps at the main entrance with a rail. Pt reports that she was (I) prior to hospital stay. Pt reports no pain at time of eval. History of Present Illness: Pt is in the swingbed program at this hospital. Pt is a 74 year old female who came to this hospital for treatment for UTI. Patient reports taking the Augmentin for about 3 or 4 days with no improvement. On review of her urine culture she has have ESBL resistant to most medications except some IV medications. Patient states she feels wore out and continues to be uncomfortable. Patient states her symptoms have not changed since last time when she was seen and had her CT scan. Patient states she understands that she was supposed to follow-up with her PCP about the liver cysts on the CT scan with need for rule out of cancer but she states she did not get around to it yet. Pt will be receiving IV medication while on swingbed protocol. - COGNITION Mental Status: Alert, Oriented, Purpose Communication Status: Verbal Affect: Appropriate - PAIN R Leg burning Pain Scale: Mild - BED MOBILITY Scooting: Independent - TRANSFERS Supine to Sit: Independent Sit to Stand: Supervision Toileting: Independent - ADL'S Upper Body ADL: Supervision Upper Body ADL Comment: while standing, (I) with ADLs - BALANCE Static Sitting: Good Standing: Good Dynamic Sitting: Good Standing: Fair Balance Comment: CGA/SBA - NEUROMOTOR/SENSATION Bill. Upper Ext Sensation: WFL Coordination: WFL - ROM Bilateral UE ROM: WFL - STRENGTH Bilateral UE Strength Number: 5 - GAIT Pt. ambulates how many feet?: 50 Amount of Assistance Required: Supervision Type of Assistive Device: None - TREATMENT Date: 05/08/25 Time: 11:30 Treatment Type: Evaluation Treatment Provided: Therapeutic Activities, Other - TOTAL TREATMENT TIME Total Time: 30 - POST ASSESSMENT Post Assessment Comment: Pt seen for OT eval to assess CLOF. Pt t/f supine to EOB (I). Pt verbalized that her stomach had been upset today. Demonstrates good sitting balance. Pt donned slip on shoes (I) and completed sit to stand t/f with CGA/SBA for safety. Pt completed functional mobility for ~50 feet. Pt completed toileting tasks (I) for toilet t/f and toileting hygiene. Standing while donning gown with SBA/CGA for safety. Pt sat in recliner with call light in reach and needs met. OT eval and one treat only. Pt is independent with ADLs would not benefit from skilled OT at this time. - EXIT DISPOSITION Exit Position: CHAIR Call light in reach: Yes PT/OT ASSESSMENT - OT Problem List: Other Other, comment: OT Eval and one treatment - PATIENT GOALS Patient/Family Goals: To return home Rehabilitation Potential: OT Eval and one treatment Justification for Potential: OT Eval and one treatment - PLAN Suggested Treatment Plan: Other Other comment: OT eval and 1 tx only - FREQUENCY AND DURATION PT: - OT: OT eval and 1 tx only Expected Continuation of Care at Discharge: Home
[2025-05-08 13:30] VITALS: BMI 27.1
--- NOTE | 2025-05-08 15:19 | PT/OTEVAL ---
PT/OT OBJECTIVES - HISTORY Prescription: PT Consult Diagnosis: ESBL UTI Precautions: Fall Risk PMH: Arthritis, Coronary Artery Disease, Diabetes, Dyslipidemia, GERD, Headaches, Hypertension, Hypothyroidism, Liver Disease, PUD, Angioplasty/Stents, Hysterectomy, Ortho Surgery and Tonsillectomy Prior Level of Function: Independent Other: Per patient report- she resides at home in single story home with 3 steps to enter with RHR and her family is residing with her (neice, nephew and their children). PLOF: Independent within home and community without a device. DME: Walker, Cane, Wheelchair, BSC, SC History of Present Illness: Ms. Young is a 74 year old female who was admitted to [facility] on 05/02/2025 due to failed outpatient treatment for UTI. Pt was diagnosed with ESBL UTI and is being treated with IV antibiotics. Pt was transitioned to swing bed admission on 05/08/2025 to finish out course of IV antibiotics. Pt is noted with BLE strength, balance, functional activity tolerance and overall independence with gait tasks from PLOF and would benefit from participation in PT during swing bed admission to maximize independence and safety with mobility tasks. - COGNITION Mental Status: Alert, Oriented, Name, Date, Place, Purpose Communication Status: Verbal, Hard of Hearing - PAIN Bilateral Feet Pain Scale: Discomfort Comments: Pt reports burning due to neuropathy. - BED MOBILITY Rolling: Independent - TRANSFERS Supine to Sit: Independent Sit to Stand: Independent Sit or Stand Pivot: Independent Toileting: Independent - BALANCE Static Sitting: Good Standing: Good Dynamic Sitting: Good Standing: Fair Balance Comment: Fair/Fair- - NEUROMOTOR/SENSATION Bill. Lower Ext Sensation: WFL Coordination: WFL Proprioception: WFL Comments: Sensation intact to BLEs; however, with reports of burning to B feet due to neuropathy. - ROM Bilateral LE ROM: WFL Muscle Tone: WFL - STRENGTH Bilateral LE Strength Number: 4 Other comment: B Hip Abductors: 3+/5; All other joints: 4/5 - GAIT Pt. ambulates how many feet?: 200 Amount of Assistance Required: Supervision Type of Assistive Device: None Comments: Wide LUIS EDUARDO, decreased step length, path deviation - TREATMENT Date: 05/08/25 Time: 12:00 Treatment Type: Evaluation Treatment Provided: Gait, Therapeutic Activities - TOTAL TREATMENT TIME Total Time: 60 - POST ASSESSMENT Post Assessment Comment: Pt was found supine in bed in room and agreeable to participation in PT services. Pt reviewed history and PLOF information- no changes noted from acute care evaluation. Pt reports burning sensation to B feet from neuropathy and complaints of nausea. Pt able to perform bed mobility tasks with mod I and functional transfers (EOB, commode, recliner chair) with mod I. Pt ambulated without a device with SBA for 200ft before fatigue. Pt noted with wide LUIS EDUARDO, decreased step length and path deviation. Slight signs of trendelenberg gait noted due to hip weakness. Pt does easily fatigue and require frequent therapeutic breaks throughout. Pt agreeable to sit in chair post session, left with call holliday in reach and all needs met. Pt would benefit from continued participation in PT services to address remaining deficits and facilitate highest level of function. - EXIT DISPOSITION Exit Position: CHAIR Call light in reach: Yes PT/OT ASSESSMENT - PT Problem List: Decreased Gait, Decreased Balance, Decreased LE Strength - PT GOALS Short Term Goals Days: 10 Gait: Pt will ambulate 500ft without a device with mod I Balance: Pt will increase dynamic standing balance to fair+/good- Baby Formula Mixer Goals Days: 20 Gait: Pt will ambulate 1000ft without a device with mod I Balance: Pt will increase dynamic standing balance to good ROM/Strength: Pt will increase BLE strength to 5/5 Others: Pt will ascend/descend 3 with RHR to mod I - PATIENT GOALS Patient/Family Goals: "I want to get better so I can go home" Goals Discussed with Patient/Family: Yes Rehabilitation Potential: Good to meet stated goals Justification for Potential: Facilitate highest level of function and safe discharge planning Weakness and Barriers: None - PLAN Suggested Treatment Plan: Therapeutic Activity, Gait Training, Neuro Re- education, Therapeutic Ex with HEP, Patient Education, Family Education - FREQUENCY AND DURATION PT: 5x per week x 20 days Expected Continuation of Care at Discharge: Home
[2025-05-08] MEDS: NS 1,000 ML IV 1,000 ML ONE (16:09)
[2025-05-08] MEDS: PROTONIX TAB 40 MG PO SCH (20:13)
[2025-05-08] MEDS: LOPRESSOR TAB 25 MG PO SCH (20:13)
[2025-05-08] MEDS: LIPITOR TAB 80 MG PO SCH (20:14)
[2025-05-08] MEDS: COZAAR PO SCH (20:14)
[2025-05-08] MEDS: [UNRECOGNIZED DRUG - OTHER] PO SCH (20:16)
[2025-05-08] MEDS: NEURONTIN CAP 400 MG PO SCH (20:17)
[2025-05-08] MEDS: NS 1,000 ML IV 1,000 ML IV SCH (21:08)
[2025-05-08] MEDS: SNACK - Diabetic Appropriate PO SCH (21:08)
[2025-05-08] MEDS: CATAPRES TAB 0.1 MG PO ONE (22:25)
[2025-05-08] MEDS: APRESOLINE INJ 20 MG VIAL IVP ONE (23:20)
--- NOTE | 2025-05-09 08:08 | DR.UPDATE ---
H&P UPDATE (1) Urinary tract infection due to extended-spectrum beta lactamase (ESBL) producing Escherichia coli: History and Physical Update: EXAMINATION ON 05/08/25, DC TO SWINGBED STATUS (2) Essential hypertension: (3) HLD (hyperlipidemia): (4) CAD (coronary artery disease): (5) Diabetes: (6) GERD (gastroesophageal reflux disease): Review Yes Any changes to H&P?: No Patient was examined?: Yes
[2025-05-09] MEDS: LOVENOX INJ 40 MG SYR SC SCH (08:30)
[2025-05-09] MEDS: ASPIRIN EC 81 MG PO SCH (08:31)
[2025-05-09] MEDS: FARXIGA PO SCH (08:31)
[2025-05-09] MEDS: PEPCID TAB 40 MG PO SCH (08:31)
[2025-05-09] MEDS: PLAQUENIL PO SCH (08:32)
[2025-05-09] MEDS: CYMBALTA PO SCH (08:32)
[2025-05-09] MEDS: INVanz INJ 1 GRAM VIAL 1 G in NS 100 ML IV 100 ML IV SCH (08:32)
[2025-05-09] MEDS: ZOFRAN INJ 4 MG VIAL IVP PRN (08:39)
[2025-05-09] MEDS: LINZESS PO SCH (09:59)
[2025-05-10 05:50] LABS: MEAN PLATELET VOLUME 8.1 fL (7.4-11.0); RED CELL DISTRIBUTION WIDTH 13.5 % (11.6-16.5)
[2025-05-10 06:11] LABS: COR CA(FOR HYPOALB) 10.8 mg/dL (8.5-10.1); CREATININE 1.19 mg/dL (0.55-1.02); eGFR NON BLACK RACES 47 (>60)
[2025-05-10] MEDS ORDERED: CONSULT PHARMACY - POTASSIUM & MAGNESIUM XX SCH (07:00)
[2025-05-10] MEDS: MAG-OX TAB PO SCH (09:03)
[2025-05-10] MEDS: K-DUR TAB 20 MEQ PO SCH (09:03)
[2025-05-11] MEDS: VISBIOME PROBIOTIC CAP 112.5 B or equivalent PO SCH (11:31)
[2025-05-11] MEDS: PEPCID 20 MG VIAL IVP ONE (11:31)
[2025-05-12] MEDS: TYLENOL 325 MG TAB PO PRN (03:12)
[2025-05-12 05:13] LABS: MEAN PLATELET VOLUME 8.3 fL (7.4-11.0); RED CELL DISTRIBUTION WIDTH 13.5 % (11.6-16.5)
[2025-05-12 05:24] LABS: COR CA(FOR HYPOALB) 10.3 mg/dL (8.5-10.1); COR NA(FOR HYPERGLY) 139.0 mmol/L (136-145); CREATININE 1.18 mg/dL (0.55-1.02); eGFR NON BLACK RACES 48.0 (>60)
[2025-05-12] MEDS ORDERED: CONSULT PHARMACY - POTASSIUM & MAGNESIUM XX SCH (07:00)
[2025-05-12 07:44] VITALS: BP 190/92; PULSE 74; RESP 14; TEMP 98.4; O2SAT 98
[2025-05-12] MEDS: K-DUR TAB 20 MEQ PO SCH (08:19)
[2025-05-12] MEDS: MAG-OX TAB PO SCH (08:19)
[2025-05-12] MEDS ORDERED: PEPCID 20 MG VIAL IVP ONE (09:29)
== END 2025-05-12 11:45 | disposition home or self-care (01) | DRG 690 ==
LOC: MED/SURG 11:00
PROVIDERS: ADMIT Internal Medicine; ATTEND Internal Medicine
DX: B96.29 Other Escherichia coli [E. coli] as the cause of diseases classified elsewhere; N39.0 Urinary tract infection, site not specified; R26.89 Other abnormalities of gait and mobility; K21.9 Gastro-esophageal reflux disease without esophagitis; I25.10 Atherosclerotic heart disease of native coronary artery without angina pectoris; M06.8A Other specified rheumatoid arthritis, other specified site; Z51.89 Encounter for other specified aftercare; E11.65 Type 2 diabetes mellitus with hyperglycemia; E83.42 Hypomagnesemia; I10 Essential (primary) hypertension; Z16.12 Extended spectrum beta lactamase (ESBL) resistance; Z16.24 Resistance to multiple antibiotics; E78.5 Hyperlipidemia, unspecified

== ENCOUNTER 2025-05-26 12:42 | Observation (INO) ==
--- NOTE | 2025-05-26 13:23 | ED.ABDFE ---
HPI Time Seen Time Seen by Provider: 05/26/25 13:20 PCP Primary Care Physician: Linsey Bedoya Complaint Doctors Chief Complaint Comments: Patient complaining of abdominal pain with some vomiting. Patient was discharged from this hospital on 05/15/2025 with similar complaints. The patient states she was constipated for a while but today she did have a soupy stool. Chief Complaint:: EMS report they were called to the home d/t pt c/o vomiting and abdominal burning. On arrival to ED, pt smiling, talkative, not actively vomitingphlegm since 10am this morning and "burning" in lower abdomen and epigastric region; rates pain 5/10. Pt also report she has been constipated for approx 1 week and this morning she had "soupy" stools. She states she is compliant with her medications and has f/u with GI (Irfan) at the end of the month Self Treatment fo Chief Complaint: Pt states she took 3 laxatives this morning COVID-19 Coronavirus risk:travel/contact w/high risk person: No Has patient experienced Coronavirus symptoms: No Source History Provided: Patient and EMS Mode of arrival Mode of Arrival: EMS Timing Onset of Chief Complaint: 05/26/25 PMH PMH Past Medical History: Yes Past Medical History: Arthritis, Coronary Artery Disease, Diabetes, Dyslipidemia, GERD, Headaches, Hypertension, Hypothyroidism, Liver Disease and PUD Past Surgical History: Yes Surgical History: Angioplasty/Stents, Hysterectomy, Ortho Surgery and Tonsillectomy Family History History of Family Medical Conditions: Yes Family Medical History: Diabetes Mellitus, Cancer, Heart Failure and Hypertension Social History Alcohol Use: None Do you use any recreational Drugs:: No Lives Where: Home Travel Risk Coronavirus risk:travel/contact w/high risk person: No Has patient experienced Coronavirus symptoms: No Infectious screening In the last 2 months have you had wt loss of >10#?: NO Have you had fever, night sweats or hemotysis?: No Have you traveled outside the country in the last 6 months?: No Isolation: Standard ROS Review of Systems Constitutional: Other (Abdominal pain with nausea and vomiting) Eyes: No Symptoms Reported ENTM: No Symptoms Reported Respiratoy: No Symptoms Reported Cardiovascular: No Symptoms Reported Gastrointestinal/Abdominal: Abdominal Pain, Nausea and Vomiting Genitourinary: No Symptoms Reported Neurological: No Symptoms Reported Musculoskeletal: No Symptoms Reported Integumentary: No Symptoms Reported Hematologic/Lymphatic: No Symptoms Reported Endocrine: No Symptoms Reported Psychiatric: No Symptoms Reported All Other Systems: Reviewed and Negative PE Vital Signs Vitals: Vital Signs Pulse Rate 72 Pulse Rate 75 Pulse Rate 75 Pulse Rate 69 Pulse Rate 70 Pulse Rate 68 Respiratory Rate 16 Blood Pressure 165/71 Blood Pressure 172/72 Blood Pressure 190/81 Blood Pressure 182/78 Blood Pressure 157/68 Blood Pressure 156/67 Blood Pressure 159/67 Blood Pressure 159/67 Blood Pressure 143/65 O2 Sat by Pulse Oximetry 99 O2 Sat by Pulse Oximetry 100 O2 Sat by Pulse Oximetry 100 O2 Sat by Pulse Oximetry 97 O2 Sat by Pulse Oximetry 99 O2 Sat by Pulse Oximetry 100 O2 Sat by Pulse Oximetry 100 General Limitations: No Limitations General Appearance: In Distress (mild distress) Head Head Exam: Normal Inspection, Atraumatic and Normocephalic Eyes Eye exam: Normal Appearance, PERRL and EOMI ENT ENT Exam: Normal Exam Neck Neck Exam: Normal Inspection Chest Chest Inspection: Normal Inspection and Symmetric Chest Wall Rise Respiratory Respiratory Exam: Normal Lung Sounds Bilat Respiratory Exam: Bilateral: Clear to Auscultation Cardiovascular Cardiovascular Exam: Regular Rate and Normal Rhythm Abdominal Exam Abdominal Exam: Normal Inspection, Normal Bowel Sounds, Soft and Tenderness (globally) Rectal Rectal Exam: Deferred Back Back Exam: Normal Inspection Extremeties Extremities Exam: Normal Inspection Neurologic Neurological Exam: Alert, Oriented X3 and CN II-XII Intact Psychiatric Psychiatric Exam: Normal Affect Skin Skin Exam: Warm, Dry and Intact MDM Differential Diagnosis Differential Diagnosis- Considerations may include:: Constipation, Diverticular disease, Urinary tract infection, Urolithiasis and Other (comments) (enteritis) COURSE Treatment Treatment: This patient may relatively stable during ER evaluation. We did do a CT scan of her abdomen pelvis that showed fluid-filled small bowel with no air- fluid levels this may represent an ileus or nonspecific enteritis. We did a urine that showed 3+ leukocyte esterase 10-20 WBCs 2+ bacteria we did a CBC that showed 19.7 WBC hemoglobin was 12.2 hematocrit 36.4 platelets were 407 the metabolic panel showed that BUN is 23 creatinine was 1.96 her blood sugar was 142 her GFR was 26. This patient was given Zosyn 3.375 mg IV in the ER and I spoke to Dr. Wang at 2130 and he said he would assess the patient to admission they called the case's med team and they said that she could be referred to observation. Patient was told of the referral to observation and was agreeable to the referral. ROR Labs Reviewed Laboratory Results Reviewed?: Yes 05/26/25 13:58 05/26/25 13:58 Laboratory: WBC 19.7 X10^3/uL (3.6-10.0) H 05/26/25 13:58 RBC 4.19 X10^6/uL (3.5-5.4) 05/26/25 13:58 Hgb 12.2 g/dL (12.0-16.0) 05/26/25 13:58 Hct 36.4 % (36.0-47.0) 05/26/25 13:58 MCV 87.0 fL (80.0-100.0) 05/26/25 13:58 MCH 29.1 pg (27.0-34.0) 05/26/25 13:58 MCHC 33.5 g/dL (33.0-35.0) 05/26/25 13:58 RDW 14.3 % (11.6-16.5) 05/26/25 13:58 Plt Count 401 X10^3/uL (150.0-450.0) 05/26/25 13:58 MPV 9.7 fL (7.4-11.0) 05/26/25 13:58 Neut % (Auto) 89.7 % (42.0-75.0) H 05/26/25 13:58 Lymph % (Auto) 6.1 % (21.0-51.0) L 05/26/25 13:58 [place] % (Auto) 3.3 % (0.0-13.0) 05/26/25 13:58 Eos % (Auto) 0.3 % (0.9-2.9) L 05/26/25 13:58 Baso % (Auto) 0.6 % (0.2-1.0) 05/26/25 13:58 Neut # (Auto) 17.7 x10^3/uL (2.2-4.8) H 05/26/25 13:58 Lymph # (Auto) 1.2 X10^3/uL (1.3-2.9) L 05/26/25 13:58 [place] # (Auto) 0.7 x10^3/uL (0.3-0.8) 05/26/25 13:58 Eos # (Auto) 0.1 x10^3/uL (0.0-0.2) 05/26/25 13:58 Baso # (Auto) 0.1 X10^3/uL (0.0-0.1) 05/26/25 13:58 Absolute Nucleated RBC 0.0 /100WBC 05/26/25 13:58 Sodium 141 mmol/L (136-145) 05/26/25 13:58 Corrected Sodium 142 mmol/L (136-145) 05/26/25 13:58 Potassium 3.8 mmol/L (3.5-5.1) 05/26/25 13:58 Chloride 105 mmol/L (98-107) 05/26/25 13:58 Carbon Dioxide 23.5 mmol/L (21-32) 05/26/25 13:58 BUN 23 mg/dL (7-18) H 05/26/25 13:58 Creatinine 1.96 mg/dL (0.55-1.02) H 05/26/25 13:58 Est GFR (MDRD) Af Amer 32 (>60) L 05/26/25 13:58 Est GFR (MDRD) Non-Af 26 (>60) L 05/26/25 13:58 Glucose 142 mg/dL (65-99) H 05/26/25 13:58 Calcium 10.1 mg/dL (8.5-10.1) 05/26/25 13:58 Corrected Calcium TNP 05/26/25 13:58 Total Bilirubin 0.80 mg/dL (0.2-1.0) 05/26/25 13:58 AST 26 Units/L (15-37) 05/26/25 13:58 ALT 27 Units/L (12-78) 05/26/25 13:58 Alkaline Phosphatase 103 Units/L (46-116) 05/26/25 13:58 Total Protein 7.8 g/dL (6.4-8.2) 05/26/25 13:58 Albumin 4.0 g/dL (3.4-5.0) 05/26/25 13:58 Globulin 3.8 g/dL (2.5-4.5) 05/26/25 13:58 Albumin/Globulin Ratio 1.1 Ratio (1.1-2.1) 05/26/25 13:58 Specimen Type Clean catch urine 05/26/25 14:37 Urine Color Yellow (YELLOW) 05/26/25 14:37 Urine Appearance Hazy (CLEAR) 05/26/25 14:37 Urine pH 6.0 (5.0 - 8.0) 05/26/25 14:37 Ur Specific [place] 1.020 (1.000-1.030) 05/26/25 14:37 Urine Protein 3+ (NEGATIVE) 05/26/25 14:37 Urine Glucose (UA) 4+ (NEGATIVE) 05/26/25 14:37 Urine Ketones Negative (NEGATIVE) 05/26/25 14:37 Urine Blood 2+ (NEGATIVE) 05/26/25 14:37 Urine Nitrite Negative (NEGATIVE) 05/26/25 14:37 Urine Bilirubin Negative (NEGATIVE) 05/26/25 14:37 Urine Urobilinogen Normal (NORMAL) 05/26/25 14:37 Ur Leukocyte Esterase 3+ (NEGATIVE) 05/26/25 14:37 Urine RBC 3-5 /HPF (0-3) A 05/26/25 14:37 Urine WBC 10-20 /HPF (0-5) A 05/26/25 14:37 Ur Squamous Epith Cells Rare /HPF (NEGATIVE) 05/26/25 14:37 Urine Bacteria 2+ /HPF (NEGATIVE) 05/26/25 14:37 Ur Culture Indicated? Yes/culture set up 05/26/25 14:37 Opioid Opioid Risk Tool Age (Shay box if 16-45): No History of Preadolescent Sexual Abuse: No Total: 0 Total Score Risk Category: Low Risk Copyright: Eric TODD predicting aberrant behaviors Discharge Plan Diagnosis Discharge Problem: UTI (urinary tract infection), Ileus, Enteritis Discharge Plan Patient Disposition: 09 ADMITTED INPATIENT Condition: Stable Orders to Discharge Patient Discharge Orders: Transfer (Routine); Ordered 05/26/25 Ordered By: Nolan Lundberg
--- NOTE | 2025-05-26 13:59 | CT ---
EXAMINATION: ABDOMEN/PELVIS W/O CON HISTORY: abdominal burning, vomiting phlegm; . COMPARISON: CT abdomen and pelvis 04/19/2025 TECHNIQUE: Unenhanced axial images were obtained through the abdomen and pelvis using renal stone protocol. Reformatted images were obtained as well. Lack of oral and IV contrast limits diagnostic sensitivity The above CT scan was done with automated exposure control and the mA and kV was adjusted to obtain quality images according to patient size. FINDINGS: Lung bases: No acute findings Liver: Multiple hepatic cysts are noted. These are unchanged. No acute findings GB/Biliary: Cholecystectomy. No dilated duct Spleen: Normal size and density Pancreas: No acute findings. No pseudocyst or dilated duct Adrenal Glands: No mass Kidneys: No obstructing stone, hydronephrosis or solid lesion. Slightly atrophic left kidney. Renal cysts unchanged. Abdominal aorta: Tapers normally. Extensive atherosclerotic disease noted. Retroperitoneum: No pathologically enlarged lymph nodes Bowel: No thickened or dilated loops of bowel, free fluid, free air, pneumatosis or abscess. Moderate stool. Unremarkable appendix. No CT evidence for appendicitis, diverticulitis or obstruction. Fluid-filled small bowel may represent ileus or enteritis. Bladder/: Ureters and bladder are unremarkable. Hysterectomy. No pelvic or adnexal mass. Osseous: Vertebroplasty at T12 with chronic vertebral body fracture greater than 50%. Multilevel degenerative changes. No acute findings or bony lesions. IMPRESSION: Fluid-filled small bowel with no air-fluid levels may represent ileus or nonspecific enteritis. Stable hepatic and renal cysts No CT evidence for appendicitis, diverticulitis, obstruction or obstructing renal stone. THIS IS AN ELECTRONICALLY VERIFIED FINAL REPORT 05/26/2025 1:56 PM - Electronically signed by Elfego Adams MD
[2025-05-26 14:08] LABS: MEAN PLATELET VOLUME 9.7 fL (7.4-11.0); RED CELL DISTRIBUTION WIDTH 14.3 % (11.6-16.5)
[2025-05-26 14:18] LABS: COR NA(FOR HYPERGLY) 142 mmol/L (136-145); CREATININE 1.96 mg/dL (0.55-1.02); eGFR NON BLACK RACES 26 (>60)
[2025-05-26 14:48] LABS: BLOOD/HEMOGLOBIN,URINE 2+ (NEGATIVE); LEUKOCYTE ESTERASE ,URINE 3+ (NEGATIVE); NITRITES,URINE NEGATIVE (NEGATIVE)
[2025-05-26 14:53] LABS: APPEARANCE,URINE HAZY (CLEAR)
[2025-05-26 15:00] LABS: SQUAMOUS EPITHELIAL CELL,UR RARE /HPF (NEGATIVE)
[2025-05-26] MEDS: ZOSYN VIAL 3.375 GRAMS 3.375 G in NS 100 ML IV 100 ML IV ONE (21:10)
[2025-05-26] MEDS ORDERED: NS 250 ML IV 25 ML IV PRN (21:43)
[2025-05-26] MEDS ORDERED: NITROSTAT SL PRN (21:48)
[2025-05-26] MEDS ORDERED: AMITRIPTYLINE 50 MG PO PRN (21:48)
[2025-05-26] MEDS ORDERED: VENTOLIN or PROAIR HFA IN PRN (21:48)
[2025-05-26] MEDS: ZOSYN VIAL 3.375 GRAMS 3.375 G in NS 100 ML IV 100 ML IV SCH (22:25)
[2025-05-26 22:50] VITALS: BMI 24.2
[2025-05-27 05:23] LABS: MEAN PLATELET VOLUME 10.0 fL (7.4-11.0); RED CELL DISTRIBUTION WIDTH 14.2 % (11.6-16.5)
[2025-05-27] MEDS: NS 250 ML IV 250 ML IV ONE (05:25)
[2025-05-27 05:40] LABS: CREATININE 1.59 mg/dL (0.55-1.02); eGFR NON BLACK RACES 34 (>60)
[2025-05-27] MEDS ORDERED: CONSULT PHARMACY - POTASSIUM & MAGNESIUM XX SCH (07:00)
[2025-05-27] MEDS: ZOSYN VIAL 3.375 GRAMS IV ONE (08:16)
[2025-05-27] MEDS: NS 100 ML IV 100 ML ONE (08:16)
[2025-05-27] MEDS: PULMICORT NEB TX 0.5 MG NEB SCH (08:24)
[2025-05-27] MEDS: PROVENTIL NEB TX 0.083% 2.5MG/ 3ML NEB PRN (08:24)
[2025-05-27] MEDS: MAG-OX TAB PO SCH (08:38)
[2025-05-27] MEDS: KLOR-CON 10 MEQ TAB PO ONE (08:39)
[2025-05-27] MEDS: VITAMIN D3 25 mcg (1,000 UNITS) PO SCH (08:39)
[2025-05-27] MEDS: LOPRESSOR TAB 25 MG PO SCH (08:39)
[2025-05-27] MEDS: TYLENOL 500 MG TAB EXTRA STRENGTH PO SCH (08:40)
[2025-05-27] MEDS: VITAMIN C PO SCH (08:40)
[2025-05-27] MEDS: PROTONIX TAB 40 MG PO SCH (08:40)
[2025-05-27] MEDS: COZAAR PO SCH (08:41)
[2025-05-27] MEDS: PEPCID TAB 40 MG PO SCH (08:41)
[2025-05-27] MEDS: CYMBALTA PO SCH (08:42)
[2025-05-27] MEDS: VITAMIN B-12 PO SCH (08:42)
[2025-05-27] MEDS: CATAPRES TAB 0.1 MG PO ONE (09:57)
--- NOTE | 2025-05-27 10:03 | EKG ---
Test Reason : Hypertensive protocol Blood Pressure : */* mmHG Vent. Rate : 65 BPM Atrial Rate : 65 BPM P-R Int : 180 ms QRS Dur : 106 ms QT Int : 444 ms P-R-T Axes : 19 -27 2 degrees QTc Int : 461 ms Normal sinus rhythm Moderate voltage criteria for LVH, may be normal variant ( R in aVL , [place] product ) Borderline ECG When compared with ECG of 03-MAY-2025 00:44, No significant change was found Confirmed by Murali Haro MD ([id number]) on 05/27/2025 7:30:08 PM Referred By: Confirmed By: Murali Haro MD
[2025-05-27] MEDS: PULMICORT NEB TX 0.5 MG NEB ONE (11:41)
[2025-05-27] MEDS: PLAQUENIL PO SCH (11:58)
--- NOTE | 2025-05-27 12:42 | DR.H&P ---
H&P History & Physical for Day of: H&P Date: 05/26/25 Chief Complaint Chief Complaint: ADBOMINAL PAIN, VOMITING History of Present Illness History of Present Illness: PT IS 74 WF, ER ADMISSION AFTER FAMILY CALLING EMS FOR PATIENT WITH CO SUDDEN ONSET OF VOMITING AND UPPER ABDOMINAL PAIN. PT REPORTS SHE TOOK HER "HANDFUL" OF MORNING MEDICATION AND < 3OMINS BECAME VERY NAUSEATED WITH UPPER ADOMINAL PAIN AND PROFUSE VOMITING. PT WAS IN [facility] ~2 WEEKS AGO WITH UROSEPSIS AND COMPLETED IV ATBX THERAPY. PT WAS SEEN BY PCP AT DR BUCK OFFICE ON THURSDAY WITH CO FALL AND RIGHT ARM INJURY AND LATER THAT DAY DX FRACTURE PER DR POOL AND SPLINTED . PT'S LABS OBTAINED ON THURSDAY REVEALED BASELINE RENAL FUNCTION AND WBC ~12K. PT WAS ADMITTED FROM THE ER FOR TREATMENT AND EVALUATION OF ACUTE ILLNESS AND PLAN TO CONTINUE TREATMENT OF CHRONIC DISEASES INCLUDING DM, HTN, GASTROPARESIS, OA, RA, JIL, GERD, CAD AND HYPERLIPIDEMIA Past Medical History Past Medical History: Arthritis, Coronary Artery Disease, Diabetes, Dyslipidemia, GERD, Headaches, Hypertension, Hypothyroidism, Liver Disease and PUD Past Surgical History Surgical History: Angioplasty/Stents, Ortho Surgery and Tonsillectomy Family History Family Medical History: Diabetes Mellitus, Cancer, Heart Failure and Hypertension Social History Alcohol Use: Occasionally Drug Use: None Medications Home Medications: Home Medications Medication Instructions Recorded Confirmed Type aspirin 81 mg tablet,delayed 81 mg PO QPM 08/30/24 History release bempedoic acid 180 mg-ezetimibe 10 1 tab PO QPM 05/26/25 History mg tablet (Nexlizet) duloxetine 60 mg capsule,delayed 60 mg PO QAM 08/30/24 05/26/25 History release famotidine 40 mg tablet (Pepcid) 40 mg PO BID 08/30/24 05/26/25 History gabapentin 400 mg capsule 400 mg PO QPM 08/30/2405/26 History (Neurontin) hydroxychloroquine 200 mg tablet 200 mg PO QNOON 08/3005/26/25 History (Plaquenil) levocetirizine 5 mg tablet (Xyzal) 5 mg PO QPM 4 05/26/25 History levothyroxine 50 mcg tablet 50 mcg PO QAM 08/30/24 History nitroglycerin 0.4 mg sublingual 0.4 mg sublingual Q5-1 5M PRN 08/30/24 05/26/25 History tablet pantoprazole 40 mg tablet,delayed 40 mg PO BID 4 05/26/25 History release tirzepatide 5 mg/0.5 mL 5 mg subcut QWEEK 08/30/24 0 05/26/25 History subcutaneous pen injector (Mounjaro) losartan 50 mg tablet 50 mg PO BID 04/19/25 History nifedipine 60 mg tablet,extended 60 mg PO BID 04/19/25 05/26/25 History release 24 hr atorvastatin 80 mg tablet (Lipitor) 80 mg PO HS 05/26/25 History tizanidine 2 mg tablet 2 mg PO QPM 05/02/25 5 History Lactobacillus acidophilus 10 10,000 mmu cells PO QDAY 05/26/25 05/26/25 History billion cell capsule (Probiotic) acetaminophen 500 mg capsule 500 mg PO BID 05/26/25 History albuterol sulfate 90 mcg/actuation 2 puff inhalation Q ID PRN 05/26/25 05/26/25 History aerosol inhaler amitriptyline 50 mg tablet 50 mg PO QHS PRN 05/26/25 0 05/26/25 History ascorbic acid (vitamin C) 1,000 mg 1,000 mg PO QDAY 05/26/25 History tablet (Vitamin C) astragalus root 470 mg capsule 3,000 mg PO DAILY 05/2605/26/25 History betamethasone valerate 0.1 % 1 applic topical BID PRN 05/26/25 05/26/25 History topical ointment budesonide-formoterol HFA 160 2 puff inhalation Q12H 0 05/26/25 05/26/25 History mcg-4.5 mcg/actuation aerosol inhaler (Symbicort) cetirizine 10 mg tablet 10 mg PO QPM 05/26/25 History cevimeline 30 mg capsule 1 cap PO DAILY PRN 05/26/25 05/26/25 History cholecalciferol (vitamin D3) 50 100 mcg PO QDAY 05/26/25 History mcg (2,000 unit) capsule (Vitamin D3) cyanocobalamin (vitamin B-12) 1,000 mcg PO QDAY 05/26/25 History 1,000 mcg capsule diclofenac sodium 1 % topical gel 2 g topical QID PRN 05/26/25 05/26/25 History ezspnviz-dgr-lggvo ac 400 1 tab PO DAILY 05/26/2505/12 History mcg-calcium carb 500 mg-vit K1 20 mcg tablet (Women's 50 Plus Multivitamin) mupirocin 2 % topical ointment 1 applic topical BID MI N 05/26/25 05/26/25 History naproxen 500 mg tablet 500 mg PO BID 05/26/2505/26 History turmeric 450 mg-turmeric root ext 1 cap PO DAILY 05/2605/26/25 History 50 mg-black pepper 2.5 mg capsule (Turmeric with BioPerine) turmeric root extract 150 1 tab PO DAILY 05/26/2505/12 History mg-remberto root extract 25 mg chewable tablet vit 1 tab PO DAILY 05/26/2505/12 History J-rdaeixs-phsbcgybs-rutin-audx352 500 mg-50 mg-25 mg-40 mg tablet (Bioflex) vitamin E (dl, acetate) 180 mg 180 mg PO QDAY 05/26/25 05/26/25 History (400 unit) capsule zinc gluconate 50 mg tablet 50 mg PO QDAY 05/26/25 History Allergies Allergies Allergy/AdvReac Type Severity Reaction Status Date / Time adhesive Allergy Verified 05/02/25 16:58 lisinopril Allergy Verified 05/02/25 16:58 metoclopramide (From Reglan) AdvReac Intermediate muscle Verified 05/02/25 16:58 weakness Labs 05/27/25 04:53 05/27/25 04:53 Labs: 05/26/25 14:37 Urine,Clean Catch Urine Culture - Preliminary Laboratory WBC 16.9 X10^3/uL (3.6-10.0) H 05/27/25 04:53 RBC 3.99 X10^6/uL (3.5-5.4) 05/27/25 04:53 Hgb 11.8 g/dL (12.0-16.0) L 05/27/25 04:53 Hct 34.8 % (36.0-47.0) L 05/27/25 04:53 MCV 87.3 fL (80.0-100.0) 05/27/25 04:53 MCH 29.5 pg (27.0-34.0) 05/27/25 04:53 MCHC 33.8 g/dL (33.0-35.0) 05/27/25 04:53 RDW 14.2 % (11.6-16.5) 05/27/25 04:53 Plt Count 371 X10^3/uL (150.0-450.0) 05/27/25 04:53 MPV 10.0 fL (7.4-11.0) 05/27/25 04:53 Neut % (Auto) 73.8 % (42.0-75.0) 05/27/25 04:53 Lymph % (Auto) 15.9 % (21.0-51.0) L 05/27/25 04:53 [place] % (Auto) 8.3 % (0.0-13.0) 05/27/25 04:53 Eos % (Auto) 1.4 % (0.9-2.9) 05/27/25 04:53 Baso % (Auto) 0.6 % (0.2-1.0) 05/27/25 04:53 Neut # (Auto) 12.5 x10^3/uL (2.2-4.8) H 05/27/25 04:53 Lymph # (Auto) 2.7 X10^3/uL (1.3-2.9) 05/27/25 04:53 [place] # (Auto) 1.4 x10^3/uL (0.3-0.8) H 05/27/25 04:53 Eos # (Auto) 0.2 x10^3/uL (0.0-0.2) 05/27/25 04:53 Baso # (Auto) 0.1 X10^3/uL (0.0-0.1) 05/27/25 04:53 Absolute Nucleated RBC 0.1 /100WBC 05/27/25 04:53 Sodium 141 mmol/L (136-145) 05/27/25 04:53 Corrected Sodium TNP 05/27/25 04:53 Potassium 3.5 mmol/L (3.5-5.1) 05/27/25 04:53 Chloride 106 mmol/L (98-107) 05/27/25 04:53 Carbon Dioxide 24.9 mmol/L (21-32) 05/27/25 04:53 BUN 19 mg/dL (7-18) H 05/27/25 04:53 Creatinine 1.59 mg/dL (0.55-1.02) H 05/27/25 04:53 Est GFR (MDRD) Af Amer 41 (>60) L 05/27/25 04:53 Est GFR (MDRD) Non-Af 34 (>60) L 05/27/25 04:53 Glucose 98 mg/dL (65-99) 05/27/25 04:53 POC Glucose (mg/dL) 112 mg/dL (65-99) H 05/27/25 11:42 Calcium 9.7 mg/dL (8.5-10.1) 05/27/25 04:53 Corrected Calcium TNP 05/27/25 04:53 Magnesium 1.9 mg/dL (2.0-2.9) L 05/27/25 04:53 Total Bilirubin 0.60 mg/dL (0.2-1.0) 05/27/25 04:53 AST 25 Units/L (15-37) 05/27/25 04:53 ALT 23 Units/L (12-78) 05/27/25 04:53 Alkaline Phosphatase 90 Units/L (46-116) 05/27/25 04:53 Total Protein 7.1 g/dL (6.4-8.2) 05/27/25 04:53 Albumin 3.6 g/dL (3.4-5.0) 05/27/25 04:53 Globulin 3.5 g/dL (2.5-4.5) 05/27/25 04:53 Albumin/Globulin Ratio 1.0 Ratio (1.1-2.1) L 05/27/25 04:53 Specimen Type Clean catch urine 05/26/25 14:37 Urine Color Yellow (YELLOW) 05/26/25 14:37 Urine Appearance Hazy (CLEAR) 05/26/25 14:37 Urine pH 6.0 (5.0 - 8.0) 05/26/25 14:37 Ur Specific [place] 1.020 (1.000-1.030) 05/26/25 14:37 Urine Protein 3+ (NEGATIVE) 05/26/25 14:37 Urine Glucose (UA) 4+ (NEGATIVE) 05/26/25 14:37 Urine Ketones Negative (NEGATIVE) 05/26/25 14:37 Urine Blood 2+ (NEGATIVE) 05/26/25 14:37 Urine Nitrite Negative (NEGATIVE) 05/26/25 14:37 Urine Bilirubin Negative (NEGATIVE) 05/26/25 14:37 Urine Urobilinogen Normal (NORMAL) 05/26/25 14:37 Ur Leukocyte Esterase 3+ (NEGATIVE) 05/26/25 14:37 Urine RBC 3-5 /HPF (0-3) A 05/26/25 14:37 Urine WBC 10-20 /HPF (0-5) A 05/26/25 14:37 Ur Squamous Epith Cells Rare /HPF (NEGATIVE) 05/26/25 14:37 Urine Bacteria 2+ /HPF (NEGATIVE) 05/26/25 14:37 Ur Culture Indicated? Yes/culture set up 05/26/25 14:37 Review of Systems Constitutional: Weakness Eyes: No Symptoms Reported ENT: No Symptoms Reported Respiratory: Shortness of Breath Cardiovascular: Palpitations and Light Headedness; denies Edema Gastrointestinal: Nausea, Vomiting and Abdominal Pain Genitourinary: Frequency Musculoskeletal: Arm Pain Skin: No Symptoms Reported Neurological: Weakness (MILD GENERALIZED WEAKNESS) Physical Exam Vital Signs: Vital Signs Temperature 98.0 F Pulse Rate [Right Brachial] 68 Pulse Rate 70 Respiratory Rate 18 Respiratory Rate 18 Respiratory Rate 18 Blood Pressure [Right Arm] 180/90 Blood Pressure [Right Arm] 190/88 Blood Pressure [Right Arm] 190/88 Blood Pressure [Right Arm] 185/81 Blood Pressure [Right Arm] 196/85 Blood Pressure [Right Arm] 194/90 Blood Pressure [Right Arm] 184/86 Blood Pressure [Right Arm] 186/84 Blood Pressure [Right Arm] 181/84 O2 Sat by Pulse Oximetry 97 O2 Sat by Pulse Oximetry 99 Oriented: Normal Eyes: Normal Ear: Normal Nose: Normal Throat: Dry Respiratory: RLL Diminished and LLL Diminished Cardiovascular: Normal Auscultation: Bowel Sounds: Increased Palpation: Normal Tenderness: Diffuse and Epigastric Skin: Decreased [place] Musculoskeletal: Right, Arm (IN OCL SPLINT), Swelling and Tender Psychiatric: Anxiety Mood Description: Calm Affect: Normal Speech Pattern: Clear and Appropriate Assessment/Plan (1) Enteritis: Status: Acute Plan: IV HYDRATION, PPI THERAPY VERIFY HOME MEDICATIONS BC AND BS CONTROL IV ATBX, UC ON ADMISSION PRN PAIN CONTROL FOR RUE FRACTURE (DX SEARCH ENGINE OPTIMIZATION MANAGER) (2) Ileus: Status: Acute (3) UTI (urinary tract infection): Status: Acute (4) CAD (coronary artery disease): Status: None (5) Essential hypertension: Status: None
[2025-05-27] MEDS: SNACK - Diabetic Appropriate PO SCH (21:00)
[2025-05-27] MEDS: ASPIRIN EC 81 MG PO SCH (21:17)
[2025-05-27] MEDS: PROTONIX INJ 40 MG VIAL IVP SCH (21:17)
[2025-05-27] MEDS: LIPITOR TAB 80 MG PO SCH (21:17)
[2025-05-27] MEDS: NEURONTIN CAP 400 MG PO SCH (21:17)
[2025-05-27] MEDS: [UNRECOGNIZED DRUG - OTHER] PO SCH (21:20)
[2025-05-28] MEDS: NS 250 ML IV 25 ML IV PRN (05:33)
[2025-05-28 06:20] LABS: MEAN PLATELET VOLUME 9.8 fL (7.4-11.0); RED CELL DISTRIBUTION WIDTH 14.2 % (11.6-16.5)
[2025-05-28 06:27] LABS: COR CA(FOR HYPOALB) 10.6 mg/dL (8.5-10.1); COR NA(FOR HYPERGLY) 144.0 mmol/L (136-145); CREATININE 1.73 mg/dL (0.55-1.02); eGFR NON BLACK RACES 31.0 (>60)
[2025-05-28] MEDS: PEPCID TAB 20 MG PO SCH (08:32)
[2025-05-28] MEDS: MAG-OX TAB ONE ×2 (08:50)
[2025-05-28] MEDS ORDERED: INVanz INJ 1 GRAM VIAL 1 G in NS 100 ML IV 100 ML IV SCH (09:52)
[2025-05-28] MEDS: NS 1,000 ML IV 1,000 ML IV SCH (10:57)
[2025-05-28] MEDS: NovoLIN R (or HumuLIN R) SUBCUT PRN (11:16)
[2025-05-29 05:48] LABS: MEAN PLATELET VOLUME 9.5 fL (7.4-11.0); RED CELL DISTRIBUTION WIDTH 14.2 % (11.6-16.5)
[2025-05-29 06:01] LABS: COR CA(FOR HYPOALB) 9.9 mg/dL (8.5-10.1); COR NA(FOR HYPERGLY) 144.0 mmol/L (136-145); CREATININE 1.29 mg/dL (0.55-1.02); eGFR NON BLACK RACES 43.0 (>60)
[2025-05-29] MEDS ORDERED: CONSULT PHARMACY - POTASSIUM & MAGNESIUM XX SCH (07:00)
[2025-05-29] MEDS ORDERED: TIRZEPATIDE 5 MG/0.5 ML SUBCUT SCH (09:00)
[2025-05-29] MEDS: K-DUR TAB 20 MEQ PO SCH (09:32)
[2025-05-29] MEDS: MAG-OX TAB PO SCH (09:33)
[2025-05-29] MEDS: INVanz INJ 1 GRAM VIAL 1 G in NS 100 ML IV 100 ML IV SCH (11:40)
[2025-05-29] MEDS: CATAPRES TAB 0.1 MG PO ONE (23:28)
[2025-05-30] MEDS: APRESOLINE INJ 20 MG VIAL IVP ONE (00:37)
[2025-05-30] MEDS: ELAVIL PO PRN (00:38)
[2025-05-30 05:48] LABS: MEAN PLATELET VOLUME 9.6 fL (7.4-11.0); RED CELL DISTRIBUTION WIDTH 14.2 % (11.6-16.5)
[2025-05-30 06:24] LABS: COR CA(FOR HYPOALB) 9.9 mg/dL (8.5-10.1); COR NA(FOR HYPERGLY) 143.0 mmol/L (136-145); CREATININE 1.15 mg/dL (0.55-1.02); eGFR NON BLACK RACES 49.0 (>60)
[2025-05-30] MEDS ORDERED: CONSULT PHARMACY - POTASSIUM & MAGNESIUM XX SCH (07:00)
[2025-05-30] MEDS: K-DUR TAB 20 MEQ PO SCH (09:21)
[2025-05-30] MEDS: VISBIOME PROBIOTIC CAP 112.5 B or equivalent PO SCH (09:22)
--- NOTE | 2025-05-30 11:43 | DR.UPDATE ---
H&P Update Prescription drug monitoring program results: PDMP was not reviewed H&P Reviewed: Yes Any changes to H&P?: No Patient was examined?: Yes Vital Signs: Temp Pulse Pulse Resp BP Pulse Ox O2 Del Method 05/30/25 10:21 18 05/30/25 09:21 20 05/30/25 09:01 61 97 05/30/25 09:01 Room Air 05/30/25 08:00 98.8 F 63 21 142/64 92 L Room Air 05/30/25 07:00 Room Air 05/30/25 04:00 97.9 F 63 20 152/70 99 Room Air 05/30/25 01:00 159/64 05/30/25 00:20 166/64 05/30/25 00:13 183/86 05/30/25 00:03 177/86 05/30/25 00:00 97.9 F 66 18 183/84 99 Room Air 05/29/25 23:53 175/83 05/29/25 23:43 184/88 05/29/25 23:33 184/88 05/29/25 23:23 97.9 F 63 18 183/84 100 Room Air 05/29/25 21:45 156/71 05/29/25 21:34 18 05/29/25 20:59 66 95 05/29/25 20:59 Room Air 05/29/25 20:34 18 05/29/25 20:00 97.8 F 63 18 180/80 100 Room Air 05/29/25 19:00 Room Air 05/29/25 16:30 154/70 05/29/25 16:00 97.4 F L 63 20 163/79 97 Room Air 05/29/25 12:00 97.6 F 64 20 159/70 97 Room Air 05/29/25 10:34 20 05/29/25 09:34 20 05/29/25 08:25 78 98 05/29/25 08:25 Room Air 05/29/25 08:00 97.5 F L 59 L 20 150/67 98 Room Air 05/29/25 07:00 Room Air 05/29/25 04:00 97.8 F 59 L 20 163/70 98 Room Air 05/29/25 02:00 170/74 05/29/25 00:00 97.5 F L 67 20 180/81 99 Room Air 05/28/25 21:11 18 05/28/25 20:11 18 05/28/25 20:10 72 98 05/28/25 20:10 Room Air 05/28/25 20:00 97.8 F 68 18 188/76 100 Room Air 05/28/25 19:00 Room Air 05/28/25 16:00 97.7 F 62 18 173/74 99 Room Air 05/28/25 12:00 97.4 F L 59 L 17 140/64 99 Room Air 05/28/25 09:07 65 96 05/28/25 09:06 Room Air 05/28/25 07:42 97.7 F 62 17 165/60 98 Room Air 05/28/25 07:00 Room Air 05/28/25 04:00 97.7 F 60 17 151/81 96 Room Air 05/27/25 23:59 97.8 F 59 L 17 147/68 98 Room Air 05/27/25 22:18 18 05/27/25 21:18 18 05/27/25 20:02 59 L 96 05/27/25 20:02 Room Air 05/27/25 20:00 97.7 F 60 17 174/88 98 Room Air 05/27/25 19:00 Room Air 05/27/25 16:00 97.6 F 60 18 170/78 96 Room Air 05/27/25 12:00 97.7 F 61 18 178/82 98 Room Air FiO2 05/30/25 10:21 05/30/25 09:21 05/30/25 09:01 05/30/25 09:01 05/30/25 08:00 05/30/25 07:00 05/30/25 04:00 05/30/25 01:00 05/30/25 00:20 05/30/25 00:13 05/30/25 00:03 05/30/25 00:00 05/29/25 23:53 05/29/25 23:43 05/29/25 23:33 05/29/25 23:23 05/29/25 21:45 05/29/25 21:34 05/29/25 20:59 05/29/25 20:59 21 05/29/25 20:34 05/29/25 20:00 05/29/25 19:00 05/29/25 16:30 05/29/25 16:00 05/29/25 12:00 05/29/25 10:34 05/29/25 09:34 05/29/25 08:25 05/29/25 08:25 05/29/25 08:00 05/29/25 07:00 05/29/25 04:00 05/29/25 02:00 05/29/25 00:00 05/28/25 21:11 05/28/25 20:11 05/28/25 20:10 05/28/25 20:10 05/28/25 20:00 05/28/25 19:00 05/28/25 16:00 05/28/25 12:00 05/28/25 09:07 05/28/25 09:06 21 05/28/25 07:42 05/28/25 07:00 05/28/25 04:00 05/27/25 23:59 05/27/25 22:18 05/27/25 21:18 05/27/25 20:02 05/27/25 20:02 05/27/25 20:00 05/27/25 19:00 05/27/25 16:00 05/27/25 12:00 Procedures (ALL) - Central Line Placement PCM.[email or web address]: written consent Time out performed: Yes Patient placed pm monitor/pulse ox: Yes MD prep: mask, gown, gloves, other Centrial line prep: chlorhexidine scrub, sterile drapes applied Local anesthsia used: lidocane 1% Ultrasound used for placement: Yes (right basilic id'd via u/s and cannulation vis) Central line lumen ininserted: double (5.5fr arrowgard. trimmed to 45cm with 5cm exposed) Post procedure: good blood return, all ports aspirated, flushed,capped, sterile dressing applied Post procedure xray: tip oc catheter in good position (appeared RA, withdrawn 2cm (5cm exposed) after cxr.) Patient tolerated procedure: Yes Complications: none
--- NOTE | 2025-05-30 12:18 | RAD ---
EXAM: AP chest HISTORY: PICC COMPARISON: 04/19/2025 br.br.br.br spaces. A right PICC is present, the tip in the right atrium. IMPRESSION: PICC as noted. No acute findings. THIS IS AN ELECTRONICALLY VERIFIED FINAL REPORT 05/30/2025 12:14 PM - Electronically signed by Arnaud James MD
[2025-05-30] MEDS: COLACE CAP 100 MG PO SCH (21:43)
[2025-05-31 05:52] LABS: MEAN PLATELET VOLUME 9.8 fL (7.4-11.0); RED CELL DISTRIBUTION WIDTH 14.4 % (11.6-16.5)
[2025-05-31 06:07] LABS: COR CA(FOR HYPOALB) 10.1 mg/dL (8.5-10.1); COR NA(FOR HYPERGLY) 144.0 mmol/L (136-145); CREATININE 1.2 mg/dL (0.55-1.02); eGFR NON BLACK RACES 47.0 (>60)
[2025-05-31 08:21] VITALS: O2SAT 97
[2025-05-31 09:19] VITALS: RESP 18
[2025-05-31 12:28] VITALS: BP 145/65; PULSE 60; TEMP 97.7
== END 2025-05-31 11:45 | disposition home or self-care (01) ==
LOC: MED/SURG 12:42 → ER 12:42 → MED/SURG 22:12
PROVIDERS: ADMIT Internal Medicine; ATTEND Internal Medicine